=== PATIENT | male | born 1970 | race Caucasian/White ===

== ENCOUNTER → 2021-03-22 09:22 | Outpatient (BNVA) | payer BC, SELFPAY | PROVIDERS: PCP Internal Medicine; Visit Provider Physician Assistant ==

== ENCOUNTER 2021-04-25 07:22 | Outpatient (REF) | payer BC, SELFPAY ==
[2021-04-25 07:53] LABS: MANUAL DIFF FLAG NO
[2021-04-25 07:58] LABS: Basophils Absolute Auto 0.1 X10*3/uL (0.0-0.2); Basophils Percent Auto 0.7 % (0-2); Eosinophils Absolute Auto 0.7 X10*3/uL (0.0-0.4); Eosinophils Percent Auto 9.6 % (0-4); Hematocrit 43.8 % (42-52); Hemoglobin 15.2 g/dl (14.0-18.0); Imm Gran Abs Auto 0.03 X10*3/uL (0.00-0.03); Imm Gran Pct Auto 0.4 % (0.0-0.4); Lymphocytes Absolute Auto 2.1 X10*3/uL (1.2-4.9); Mean Corpuscular HGB Conc 34.7 g/dl (31.0-36.0); Mean Corpuscular Volume 83.6 fL (80-98); Mean Platelet Volume 11.1 fL (9.4-12.4); Monocytes Absolute Auto 0.7 X10*3/uL (0.1-1.2); Monocytes Percent Auto 9.4 % (2-11); Neutrophils Percent Auto 52.9 % (45-73); Platelet Count 195 X10*3/uL (160-400); Red Blood Count 5.24 X10*6/uL (4.60-5.80); Red Cell Distribution Width 12.8 % (11.0-16.0); White Blood Count 7.6 X10*3/uL (4.8-10.8)
[2021-04-25 08:10] LABS: Estimated Average Glucose 114 mg/dL; Hemoglobin A1C 149.4362 umol/L; Hemoglobin A1c % 5.6 %
[2021-04-25 08:19] LABS: Alanine Aminotransferase 35 U/L (0-40); Alkaline Phosphatase 85 U/L (39-117); Anion Gap 13 (12-20); Aspartate Amino Transferase 35 U/L (5-37); Bilirubin Total 2.1 mg/dL (0.0-1.0); Blood Urea Nitrogen 14 mg/dL (9-16); Carbon Dioxide 24 mmol/L (22-29); Chloride 106 mmol/L (96-108); Cholesterol 152 mg/dL; Estimated Glomerular Filt Rate 53; Glucose Random 105 mg/dL (60-115); HDL Cholesterol 35 mg/dL; LDL Cholesterol Calculated 85 mg/dl; Potassium 4.2 mmol/L (3.3-5.1); Sodium 139 mmol/L (135-145); Total Protein 7.4 g/dL (6.5-8.0); Triglycerides 160 mg/dL
[2021-04-25 08:40] LABS: Free T4 (Free Thyroxine) 1.04 ng/dL (0.71-1.85); Prostate Specific Antigen Scr 3.86 ng/mL (<0.05-4.0); Thyroid Stimulating Hormone 1.19 uIU/mL (0.32-4.0)
[2021-04-25 11:10] LABS: Folate 14.3 ng/mL (> or = 4.0); Vitamin B12 435 pg/mL (200-900)
== END 2021-04-25 07:23 | disposition home or self-care (01) ==
LOC: HO.LAB 07:22
PROVIDERS: PCP Internal Medicine; Visit Provider Internal Medicine
DX: E78.00 Pure hypercholesterolemia, unspecified (principal); E80.6 Other disorders of bilirubin metabolism; I10 Essential (primary) hypertension; R73.01 Impaired fasting glucose
CPT/HCPCS: 36415; 80053; 80061; 82607; 82746; 83036; 84153; 84439; 84443; 85025

== ENCOUNTER 2021-05-15 13:40 | Outpatient (REF) | payer BC, SELFPAY ==
[2021-05-15 14:57] LABS: Anion Gap 17 (12-20); Bilirubin Direct 0.5 mg/dL (0.0-0.5); Blood Urea Nitrogen 17 mg/dL (9-16); Carbon Dioxide 26 mmol/L (22-29); Chloride 102 mmol/L (96-108); Estimated Glomerular Filt Rate > 60; Lactate Dehydrogenase 176 U/L (118-273); Potassium 4.4 mmol/L (3.3-5.1); Sodium 141 mmol/L (135-145)
[2021-05-15 15:10] LABS: Calcium 10.2 mg/dL (8.4-10.2); Glucose Random 94 mg/dL (60-115)
[2021-05-16 14:07] LABS: Haptoglobin 196 mg/dL (43-212)
== END 2021-05-15 13:41 | disposition home or self-care (01) ==
LOC: HO.LAB 13:40
PROVIDERS: PCP Internal Medicine; Visit Provider Internal Medicine
DX: E80.6 Other disorders of bilirubin metabolism (principal)
CPT/HCPCS: 36415; 80048; 82248; 83010; 83615

== ENCOUNTER 2021-11-11 19:05 | Emergency (ER) | payer OTHER, SELFPAY ==
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
[2021-11-11 19:15] VITALS: BP 152/91; BP 154/78; PULSE 73; RESP 16; O2SAT 97; BMI 32.5
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
[2021-11-11] MEDS: Ibuprofen 600 MG TABLET PO (21:55)
== END 2021-11-11 22:00 | disposition home or self-care (01) ==
PROVIDERS: Emergency Provider Internal Medicine; PCP Internal Medicine
DX: S13.4XXA Sprain of ligaments of cervical spine, initial encounter (principal); S29.012A Strain of muscle and tendon of back wall of thorax, initial encounter; M25.512 Pain in left shoulder; M25.511 Pain in right shoulder; V43.52XA Car driver injured in collision with other type car in traffic accident, initial encounter; Y93.9 Activity, unspecified; Y92.415 Exit ramp or entrance ramp of street or highway as the place of occurrence of the external cause; Y99.9 Unspecified external cause status; Z79.899 Other long term (current) drug therapy; Z87.891 Personal history of nicotine dependence
CPT/HCPCS: 70450; 71046; 72125; 73030; 99284

== ENCOUNTER → 2021-12-10 10:38 | Outpatient (BNVA) | payer OTHER, BC, SELFPAY | PROVIDERS: PCP Internal Medicine; Visit Provider Physician Assistant | DX: M25.512 Pain in left shoulder (principal); S14 Injury of nerves and spinal cord at neck level; X58.XXXD Exposure to other specified factors, subsequent encounter | CPT/HCPCS: 99202 ==

== ENCOUNTER 2022-02-26 14:00 | Outpatient (RCR) | payer OTHER, BC, SELFPAY | END 2022-04-04 15:15 | disposition home or self-care (01) | LOC: HO.PTWFD 14:00 | PROVIDERS: PCP Internal Medicine; Visit Provider Nurse Practitioner Family | DX: M25.512 Pain in left shoulder (principal); M54.9 Dorsalgia, unspecified | CPT/HCPCS: 97012; 97033; 97035; 97110; 97140; 97162; 97535 ==

== ENCOUNTER 2022-11-15 07:38 | Outpatient (REF) | payer BC, SELFPAY ==
[2022-11-15 07:56] LABS: MANUAL DIFF FLAG NO
[2022-11-15 08:13] LABS: Basophils Percent Auto 0.5 % (0-2); Eosinophils Absolute Auto 0.6 X10*3/uL (0.0-0.4); Eosinophils Percent Auto 7.6 % (0-4); Hematocrit 43.9 % (42.0-52.0); Hemoglobin 15.2 g/dl (14.0-18.0); Imm Gran Abs Auto 0.03 X10*3/uL (0.00-0.03); Imm Gran Pct Auto 0.4 % (0.0-0.4); Lymphocytes Absolute Auto 1.9 X10*3/uL (1.2-4.9); Lymphocytes Percent Auto 23.8 % (20-40); Mean Corpuscular HGB Conc 34.6 g/dl (31.0-36.0); Mean Corpuscular Volume 86.6 fL (80.0-98.0); Mean Platelet Volume 11.8 fL (9.4-12.4); Monocytes Absolute Auto 0.6 X10*3/uL (0.1-1.2); Monocytes Percent Auto 7.7 % (2-11); Neutrophils Absolute Auto 4.9 x10*3/uL (2.0-8.3); Platelet Count 214 X10*3/uL (160-400); Red Blood Count 5.07 X10*6/uL (4.60-5.80); Red Cell Distribution Width 13.1 % (11.0-16.0); White Blood Count 8.1 X10*3/uL (4.8-10.8)
[2022-11-15 08:44] LABS: Alanine Aminotransferase 27 U/L (0-40); Albumin Level 4.9 g/dL (3.5-5.0); Alkaline Phosphatase 68 U/L (39-117); Anion Gap 14 (12-20); Aspartate Amino Transferase 21 U/L (5-37); Bilirubin Total 1.8 mg/dL (0.0-1.0); Blood Urea Nitrogen 16 mg/dL (9-16); Calcium 9.2 mg/dL (8.4-10.2); Carbon Dioxide 26 mmol/L (22-29); Chloride 107 mmol/L (96-108); Cholesterol 171 mg/dL; Estimated Glomerular Filt Rate > 60; Glucose Random 100 mg/dL (60-115); HDL Cholesterol 35 mg/dL; LDL Cholesterol Calculated 107 mg/dl; Potassium 4.6 mmol/L (3.3-5.1); Sodium 142 mmol/L (135-145); Total Protein 7.1 g/dL (6.5-8.0); Triglycerides 148 mg/dL
[2022-11-15 09:32] LABS: Folate 10.3 ng/mL (> or = 4.0); Prostate Specific Antigen Scr 6.66 ng/mL (<0.05-4.0); Vitamin B12 337 pg/mL (200-900)
== END 2022-11-15 07:39 | disposition home or self-care (01) ==
LOC: HO.LAB 07:38
PROVIDERS: PCP Internal Medicine; Visit Provider Internal Medicine
DX: E78.00 Pure hypercholesterolemia, unspecified (principal); R97.20 Elevated prostate specific antigen [PSA]; Z12.5 Encounter for screening for malignant neoplasm of prostate
CPT/HCPCS: 36415; 80053; 80061; 82607; 82746; 84153; 84439; 84443; 85025

== ENCOUNTER 2022-12-03 07:57 | Outpatient (REF) | payer BC, SELFPAY ==
[2022-12-03 09:05] LABS: PSA,Total (Free>4and<10) 5.81 ng/mL (0.00-4.00)
[2022-12-05 11:54] LABS: Free Prostate Spec Ag 0.9 ng/mL; Percent Free Prostate Spec Ag 15 % (calc) (>25)
== END 2022-12-03 07:58 | disposition home or self-care (01) ==
LOC: HO.LAB 07:57
PROVIDERS: PCP Internal Medicine; Visit Provider Internal Medicine
DX: R97.20 Elevated prostate specific antigen [PSA] (principal); Z12.5 Encounter for screening for malignant neoplasm of prostate
CPT/HCPCS: 36415; 84153; 84154

== ENCOUNTER → 2023-01-09 15:05 | Outpatient (BNVA) | payer BC, SELFPAY | PROVIDERS: PCP Internal Medicine; Visit Provider Nurse Practitioner Family | DX: Z13.89 Encounter for screening for other disorder (principal) ==

== ENCOUNTER 2023-01-13 08:31 | Outpatient (REF) | payer BC, SELFPAY ==
[2023-01-13 10:13] LABS: Prostate Specific Antigen 5.73 ng/mL (<0.05-4.0)
== END 2023-01-13 08:32 | disposition home or self-care (01) ==
LOC: HO.LAB 08:31
PROVIDERS: PCP Internal Medicine; Visit Provider Nurse Practitioner Family
DX: R97.20 Elevated prostate specific antigen [PSA] (principal); Z12.5 Encounter for screening for malignant neoplasm of prostate
CPT/HCPCS: 36415; 84153

== ENCOUNTER → 2023-01-20 14:30 | Outpatient (BNVA) | payer BC, SELFPAY | PROVIDERS: PCP Internal Medicine; Visit Provider Nurse Practitioner Family ==

== ENCOUNTER 2023-03-04 07:42 | Outpatient (REF) | payer BC, SELFPAY ==
[2023-03-04 07:32] VITALS: BP 132/99; PULSE 73; RESP 18; TEMP 36.9; O2SAT 96; BMI 31.7
--- NOTE | 2023-03-04 08:36 | W.PM.OPN ---
Operative Note Operative Note Date of Service: 03/04/23 Narrative: Preoperative diagnosis: Elevated PSA Postoperative diagnosis: Elevated PSA Procedure: 1. transrectal ultrasound measurement of prostate 2. transrectal ultrasound-guided pudendal nerve block 3. transrectal ultrasound-guided prostate biopsy 12 core Surgeon: Dr. Mikal Parson Anesthetic: Local Indications for procedure: Elevated PSA Prostate Cancer Procedure: After informed consent was verified, the patient was brought into the procedure area and lay left-hand side down on the table. Patient identity confirmed. Perioperative antibiotics confirmed. Safety pause time out performed. LEN performed to dilate rectal sphincter Iodine 10cc with Gel was placed per rectum Ultrasound probe was placed per rectum The prostate was measured in 3 dimensions Total volume equals 45 gm small yst - left - cystic structures were noted No calcifications were noted at the surgical margin The prostate was otherwise homogeneous in nature An ultrasound-guided pudendal nerve block was performed using 10 cc of 1% lidocaine. 8 cc was placed at the base and 2 cc of the apex. A 12 core biopsy was performed with 6 cores each side. Two cores were taken at the apex, mid and base. Cores were spaced between lateral and medial. He tolerated the procedure well. Was able to ambulate to bathroom after 5 minutes. Printed instructions regarding antibiotic use and common side effects such as low-grade temperature, potential infection and bleeding were given Pathology: 12 core prostate biopsy.
== END 2023-03-04 07:43 | disposition home or self-care (01) ==
LOC: HO.MS 07:42
PROVIDERS: PCP Internal Medicine; Visit Provider Urology
PROC: (CPT 55700; principal; 2023-03-04 08:00)
DX: C61 Malignant neoplasm of prostate (principal); N42.32 Atypical small acinar proliferation of prostate; R97.20 Elevated prostate specific antigen [PSA]
CPT/HCPCS: 55700; 76942; 88305; 88344

== ENCOUNTER → 2023-03-12 11:33 | Outpatient (BNVA) | payer BC, SELFPAY | PROVIDERS: Visit Provider Urology ==

== ENCOUNTER 2023-03-26 09:38 | Outpatient (AMB) | payer BC, SELFPAY ==
--- NOTE | 2023-03-26 10:05 | A.OFFVIS_ITS ---
Intake Intake Visit Reasons: BX results Allergies lisinopril [LISINOPRIL] Allergy (Unknown, Verified 01/20/23 14:38) cough HPI HPI Comments History of Present Illness Details Won is a pleasant male. He is a patient of Dr. Kent. 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 Telemedicine Evaluation 15 min Consultation [employer] Wade Video attempted Discussion regarding prostate cancer diagnosis Plan for staging and genetics Treatment decisions will be based on completed information Prostate cancer - grade group [address] Parson for rising PSA 03/07 PSA at diagnosis 5.7, free% 15 No family history TRUS - 45gm, T1c [place] score: 3+3=6 - Grade group: 1 Tumor quantitation: ? Number cores positive: 4 Total number of cores: 12 - LBL, LML, RML, KARLA Periprostatic fat inv.: Not identified Seminal vesicle inv.: Not identified Perineural inv.: Not identified LVI: Not identified PFSH Medical History Alcohol abuse Anxiety and depression Fatty liver GERD (gastroesophageal reflux disease) Hypercholesterolemia Hypertension Impaired fasting glucose Obesity (BMI 30-39.9) Obstructive sleep apnea Vitamin D deficiency Surgical History H/O nasal septoplasty Family History Father Alcoholism Mother Hypertension Hypercholesteremia Brother Hypercholesteremia Gout Maternal Grandfather Throat cancer Maternal Grandmother Hypertension Maternal Uncle Throat cancer Colon cancer Social History Household Members Other:: - 1 son Housing: House Alcohol intake: former Patient Tobacco Use Status: Former Tobacco user Tobacco use type: Cigar Years Smoked: quit 2020 e-Cigarette/Vaping Use: Never Used Second Hand Smoke Exposure: No service: Yes Current occupational status: employed Current occupation: [employer] Cognitive needs: No Hearing needs: No Vision needs: Yes Review of Systems Const All systems reviewed & are unremarkable except as noted in HPI and below Denies chills and Denies fever(s) Card Reports no additional complaints and Denies syncope Resp Denies cough GI Denies abdominal pain and Denies heartburn Reports as per HPI and Denies change in libido Musc Reports no additional complaints Neuro Denies syncope Psych Denies change in libido Endo Denies change in libido Physical Exam Telemedicine evaluation Appropriate responses Regular breathing rate and rhythm HEENT Head: Yes normal to inspection Ears: hearing grossly normal bilaterally Eyes General: appearance normal, both eyes and all related structures Neck Neck: Yes normal visual inspection Chest Chest palpation & inspection: normal inspection of the chest Resp Effort & Inspection: normal respiratory effort and able to speak in complete sentences Assessment & Plan Assessment & Plan (1) Prostatic adenocarcinoma: Comment: February 2023 Code(s): C61 - Malignant neoplasm of prostate Plan Prostate MRI, prolaris Patient Instructions: Imaging studies, laboratory and physical exam results were discussed and reviewed in detail. No major barriers to patient understanding were identified. An opportunity to ask questions regarding the treatment plan was provided. All questions were answered. The patient expressed understanding and agreement with the above treatment plan. The patient is aware they should contact our office by phone for worsening of their current condition or the appearance of new urologic symptoms. Compliance is encouraged with any medications and followup testing that is ordered. It is a privilege to participate in the urologic care of your patient. If you have any questions or concerns regarding treatment for the above conditions, or other urologic issues, please do not hesitate to contact me. The office telephone contact is [phone]. This note is constructed using voice recognition software. 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 Yours sincerely, Dr Mikal Parson MD, [facility] - Urology Providers of Expert, Compassionate Care for the Genitourinary System Telehealth Telehealth Location of provider rendering services: practice address Location of patient: address on file Patient Identification confirmed using: Name, : Yes Telehealth method: video Patient verbally consented to treatment: Yes Patient verbally consented to billing insurance company: Yes Patient informed of any privacy concerns related to visit: Yes Coding Level of Care Code Tele Est Pt Level 4 (14019) Diagnoses Prostatic adenocarcinoma C61
== END 2023-03-26 11:45 | disposition home or self-care (01) ==
LOC: HO.HUSH 09:38
PROVIDERS: PCP Internal Medicine; Visit Provider Urology
DX: C61 Malignant neoplasm of prostate (principal)
CPT/HCPCS: 99214

== ENCOUNTER → 2023-03-26 09:38 | Outpatient (BNVA) | payer BC, SELFPAY | PROVIDERS: PCP Internal Medicine; Visit Provider Urology ==

== ENCOUNTER 2023-05-06 13:59 | Outpatient (AMB) | payer BC, SELFPAY ==
--- NOTE | 2023-05-06 14:05 | A.OFFVIS_ITS ---
Intake Intake Visit Reasons: 5w/MRI ([place])SET Intake Note: Patient is present for Follow Up MRI Urology Med: None Antibiotic Allergy: None Blood Thinner: None [facility] Allergies lisinopril [LISINOPRIL] Allergy (Unknown, Verified 05/06/23 14:08) cough HPI HPI Comments History of Present Illness Details Won is a pleasant male. He is a patient of Dr. Kent. 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 Staging and genetics completed Genetics indicate active surveillance group Imaging results shows a 6 mm PI-RADS 4 lesion At this stage will start finasteride 3 times a week and proceed with surveillanc e Treatment options including robotic prostatectomy discussed Prostate cancer - grade group [address] Parson for rising PSA 03/07 PSA at diagnosis 5.7, free% 15 No family history TRUS - 45gm, T1c [place] score: 3+3=6 - Grade group: 1 Number cores positive: 4 Total number of cores: 12 - LBL, LML, RML, KARLA Periprostatic fat inv.: Not identified Seminal vesicle inv.: Not identified Perineural inv.: Not identified LVI:Not identified Staging - 05/07 Genetics active surveillance - 05/07 MRI - 10mm lesion PiRADS 3, 6 mm PI-RADS 4 PFSH Medical History Alcohol abuse Anxiety and depression Fatty liver GERD (gastroesophageal reflux disease) Hypercholesterolemia Hypertension Impaired fasting glucose Obesity (BMI 30-39.9) Obstructive sleep apnea Vitamin D deficiency Surgical History H/O nasal septoplasty Family History Father Alcoholism Mother Hypertension Hypercholesteremia Brother Hypercholesteremia Gout Maternal Grandfather Throat cancer Maternal Grandmother Hypertension Maternal Uncle Throat cancer Colon cancer Social History Household Members Other:: - 1 son Housing: House Alcohol intake: former Patient Tobacco Use Status: Former Tobacco user Tobacco use type: Cigar Years Smoked: quit 2020 e-Cigarette/Vaping Use: Never Used Second Hand Smoke Exposure: No service: Yes Current occupational status: employed Current occupation: [employer] Cognitive needs: No Hearing needs: No Vision needs: Yes Review of Systems Const Denies chills and Denies fever(s) Card Reports no additional complaints and Denies syncope Resp Denies cough GI Denies abdominal pain and Denies heartburn Reports as per HPI and Denies change in libido Neuro Denies syncope Psych Denies change in libido Endo Denies change in libido Physical Exam Const General: cooperative, healthy appearing, comfortable and no acute distress Orientation/consciousness: patient oriented x3 HEENT Face and sinus: Yes normal facial exam Mouth: moist mucous membranes Neck Neck: Yes normal visual inspection, Yes full ROM and Yes trachea midline Chest Chest palpation & inspection: normal inspection of the chest Resp Effort & Inspection: normal respiratory effort, able to speak in complete sentences and no respiratory distress GI Inspection: Yes normal to inspection Back/Spine/Pelvis Cervical Spine: normal cervical lordosis Thoracic/Lumbar Spine: thoracic and lumbar spine normal to inspection Skin General skin exam: no rashes or lesions noted Neuro General: patient oriented x3, gait normal, tone normal and moves all extremities Extrem General: Yes normal to inspection and Yes capillary refill normal Assessment & Plan Assessment & Plan (1) Prostatic adenocarcinoma: Comment: 03/07 - Grade Group 1 Prolaris Active Surveillance Code(s): C61 - Malignant neoplasm of prostate Plan PSA 4 months Orders: Orders Prostate Specific Antigen 4 Months C61 - Malignant neoplasm of prostate Medications: New finasteride 5 mg PO DAILY 90 tabs 1RF 90 days C61 - Malignant neoplasm of prostate, N13.8 - Other obstructive and reflux uropathy, N40.1 - Benign prostatic hyperplasia with lower urinary tract symptoms, R33.9 - Retention of urine, unspecified Patient Instructions: Imaging studies, laboratory and physical exam results were discussed and reviewed in detail. No major barriers to patient understanding were identified. An opportunity to ask questions regarding the treatment plan was provided. All questions were answered. The patient expressed understanding and agreement with the above treatment plan. The patient is aware they should contact our office by phone for worsening of their current condition or the appearance of new urologic symptoms. Compliance is encouraged with any medications and followup testing that is ordered. It is a privilege to participate in the urologic care of your patient. If you have any questions or concerns regarding treatment for the above conditions, or other urologic issues, please do not hesitate to contact me. The office telephone contact is [phone]. This note is constructed using voice recognition software. While every effort has been made to ensure accuracy shoe trimmer errors may have been included. Yours sincerely, Dr Mikal Parson MD, [facility] - Urology Providers of Expert, Compassionate Care for the Genitourinary System Coding Level of Care Code Est Pt Level 4 (40960) Diagnoses Prostatic adenocarcinoma C61
== END 2023-05-06 15:29 | disposition home or self-care (01) ==
PROVIDERS: PCP Internal Medicine; Visit Provider Urology
DX: C61 Malignant neoplasm of prostate (principal)
CPT/HCPCS: 99214

== ENCOUNTER → 2023-05-06 13:59 | Outpatient (BNVA) | payer BC, SELFPAY | PROVIDERS: PCP Internal Medicine; Visit Provider Urology ==

== ENCOUNTER 2023-05-12 14:09 | Outpatient (AMB) | payer BC, SELFPAY ==
[2023-05-12 14:20] VITALS: BP 112/68; PULSE 70; O2SAT 98; BMI 32.6
--- NOTE | 2023-05-12 14:20 | A.OFFPC_ITS ---
Vital Signs 05/12/23 14:20 Height 5 ft 9 in Weight 100.244 kg BMI 32.6 BP 112/68 Blood Pressure Location Lt brachial Position Sitting Pulse 70 Pulse Source Pulse Oximeter Pulse Oximetry (%) 98 Oxygen Delivery Method Room Air Intake Visit Reasons: PE Allergies lisinopril [LISINOPRIL] Allergy (Unknown, Verified 05/12/23 14:20) cough Medication List - Last Reconciled 05/12/23 by Jamaica Kent MD amlodipine 10 mg PO DAILY atorvastatin 20 mg PO DAILY 90 days finasteride 5 mg PO DAILY 90 days losartan 50 mg PO DAILY sertraline 25 mg PO DAILY Tobacco use date assessed: 11/21/22 Dental Screening Dental Screen Date: 05/12/23 Did you have a dental visit in the last 12 months?: Yes Did you have a dental problem in the last 6 months where you did not have access to dental care?: No Was dental information given to patient?: Patient has dentist HPI PE HPI Details 52-year-old obese male with hypertension hypercholesterolemia GERD [place] anxiety disorder cervical spinal stenosis followed up by [facility]. PSA elevation and recent diagnosis of prostate cancer under urology February 2023 last seen in November 2022. Patient is here for physical exam. Patient was referred for the Cologuard test. Patient has also seen the [facility] for spondylosis cervical region had cervical facet injections. coughing associated after eating PFSH Medical History Alcohol abuse Anxiety and depression Fatty liver GERD (gastroesophageal reflux disease) Hypercholesterolemia Hypertension Impaired fasting glucose Obesity (BMI 30-39.9) Obstructive sleep apnea Vitamin D deficiency Surgical History H/O nasal septoplasty Family History (Updated 05/12/23 @ 15:37 by Jamaica Kent MD) Father Alcoholism Breast cancer Mother Hypertension Hypercholesteremia Brother Hypercholesteremia Gout Maternal Grandfather Throat cancer Maternal Grandmother Hypertension Maternal Uncle Throat cancer Colon cancer Social History Household Members Other:: - 1 son Housing: House Alcohol intake: former Patient Tobacco Use Status: Former Tobacco user Tobacco use type: Cigar Years Smoked: quit 2020 e-Cigarette/Vaping Use: Never Used Second Hand Smoke Exposure: No service: Yes Current occupational status: employed Current occupation: [employer] Cognitive needs: No Hearing needs: No Vision needs: Yes Questionnaire PHQ-9 Over the last 2 weeks, how often have you been bothered by any of the following problems? 1. Little interest or pleasure in doing things: not at all 2. Feeling down, depressed, or hopeless: not at all 3. Trouble falling or staying asleep, or sleeping too much: not at all 4. Feeling tired or having little energy: not at all 5. Poor appetite or overeating: not at all 6. Feeling bad about yourself - or that you are a failure or have let yourself or your family down: not at all 7. Trouble concentrating on things, such as reading the newspaper or watching television: not at all 8. Moving or speaking so slowly that other people could have noticed. Or the opposite - being so fidgety or restless that you have been moving around a lot more than usual: not at all 9. Thoughts that you would be better off or of hurting yourself in some way: not at all Total score: 0 Depression Screening Interpretation: Negative Source: Developed by Drs. Jass Arias, Leobardo Aranda and colleagues, with an educational jody from [employer]. Thrive Questionnaire Date Thrive assessed: 11/21/22 AUDIT C Alcohol Use Questionnaire (AUDIT-C) 1. How often do you have a drink containing alcohol?: Never 3. How often do you have six or more drinks on one occasion?: Never Total Score: 0 Score Reviewed/Action Taken: No DEYSI-7 AMB Questionnaire DEYSI-7 Date DEYSI - 7 assessed: 11/21/22 Source: Developed by Drs. Jass Arias, Leobardo Aranda and colleagues, with an educational jody from [employer]. Review of Systems Const Denies poor appetite and Denies weakness Eyes Denies no additional complaints ENT Reports Normal hearing present, Denies dizziness, Denies nasal congestion, Denies tinnitus and Denies sore throat Card Denies chest pain, Denies syncope, Denies rapid heart rate and Denies dyspnea Resp Denies cough and Denies dyspnea GI Denies change in stool character, Reports constipation, Denies diarrhea, Denies nausea and Denies vomiting Denies dysuria and Denies urinary frequency Neuro Reports Normal hearing present, Denies confusion, Denies dizziness, Denies syncope and Denies weakness Psych Denies confusion Physical exam (Primary Care) Vital Signs: Last Vital Signs Pulse 70 05/12/23 14:20 BP 112/68 05/12/23 14:20 Pulse Ox 98 05/12/23 14:20 Oxygen Delivery Method Room Air 05/12/23 14:20 BMI result Body Mass Index 32.6 Tobacco/Smoking Status: Tobacco use Status Tobacco use date assessed 11/21/22 05/12/23 14:21 Patient Tobacco Use Status Former Tobacco user 05/12/23 14:21 Tobacco use type Cigar 05/12/23 14:21 e-Cigarette/Vaping Use Never Used 05/12/23 14:21 PHQ-9: PHQ-9 Score PHQ-9: Total score 0 05/12/23 15:30 Depression Screening Interpretation: Negative Thrive Assessment: Date of Thrive Assessment Date Thrive assessed 11/21/22 05/12/23 14:21 Const General: No confusion Orientation/consciousness: No confusion HENMT Head: Yes normocephalic Ears: external ears normal and TM's normal bilaterally Face and sinus: Yes normal facial exam Mouth: moist mucous membranes Throat: Yes tonsils normal Eyes Conjunctivae: conjunctivae normal Pupils: Equal, round and reactive pupils present and Pupil accommodation reflex normal Direct Ophthalmoscopy: normal light reflex Neck Neck: No lymphadenopathy Thyroid: Thyroid normal Chest Chest palpation & inspection: normal inspection of the chest Resp Effort & Inspection: normal respiratory effort and no audible wheezes Auscultation: clear to auscultation bilaterally, no crackles, no wheezes and lung sounds not diminished Cardio Rate: regular rate Rhythm: regular rhythm Peripheral pulses: radial pulses present and dorsalis pedis present GI Palpation (GI): no masses Auscultation: normal bowel sounds and normoactive bowel sounds Rectal Exam - Male: Yes deferred Skin General skin exam: no rashes or lesions noted Rashes: no rashes Neuro General: No confusion Cranial nerves: Yes Equal, round and reactive pupils present and Yes Normal hearing present Cognition (Neuro): normal cognition Gait exam (Neuro): Normal gait present Motor exam (neuro): 5/5 motor strength present throughout Deep tendon reflexes (DTR's): Right brachioradialis reflex intensity grade: 2+, Left brachioradialis reflex intensity grade: 2+, Right patellar reflex intensity grade: 2+ and Left patellar reflex intensity grade: 2+ Extrem General: No edema Immunizations pneumoc 20-jon conj-dip cr(PF) Performing Provider: Jamaica Kent MD Administered by: Annamaria Lin CMA on 05/12/23 15:54 Dose Route Admin Location Lot Number Expiration Date NDC Video Producer 0.5 mL IM Left Deltoid [id number] 05/16/24 [employer] VIS Given Date VIS Provided VIS Publication Date 05/12/23 Single Vaccine 21 Eligibility Eligibility Date Funding Source Not [facility] Eligible 05/12/23 Private Assessment and Plan Assessment & Plan (1) Annual physical exam: Code(s): Z00.00 - Encounter for general adult medical examination without abnormal findings (2) Prostatic adenocarcinoma: Comment: 03/07 - Grade Group 1 Prolaris Active Surveillance Code(s): C61 - Malignant neoplasm of prostate Plan: Patient is being followed up by Urology (3) Colon cancer screening: Comment: colonoscopy Code(s): Z12.11 - Encounter for screening for malignant neoplasm of colon Plan: Reminded about Cologuard test (4) Impaired fasting glucose: Code(s): R73.01 - Impaired fasting glucose Plan: Decrease the amount of carbohydrate intake, pasta, bread, rice and potatoes are all sugar and that is aside from all the sweet stuff, remember that fruits are good but they are Sweet also. (5) GERD (gastroesophageal reflux disease): Code(s): K21.9 - Gastro-esophageal reflux disease without esophagitis Qualifiers: Esophagitis presence: without esophagitis Qualified Code(s): K21.9 - Gastro-esophageal reflux disease without esophagitis Plan: Avoid the foods that causes that usually spicy foods, tomato products, juices, coffee, soda and foods that your sensitive to. After eating do not lie down, allow 3-4 hours before in lie down. And keep the head of bed above 30 degrees to avoid the acid from going up. (6) Obesity (BMI 30-39.9): Code(s): E66.9 - Obesity, unspecified Plan: Diet and exercise (7) Obstructive sleep apnea: Comment: Has CPAP not using QD (01/2021) Code(s): G47.33 - Obstructive sleep apnea (adult) (pediatric) Plan: Discussed about the importance of CPAP treatment for sleep apnea (8) Hypercholesterolemia: Code(s): E78.00 - Pure hypercholesterolemia, unspecified Plan: Avoid fried foods, chicken skin, eggs, butter margarine, pastries and meat. Be it pork or beef they have a lot of cholesterol LDL goal of less than 130 and triglyceride of less than 150 patient is on atorvastatin 20 mg once a day (9) Hypertension: Code(s): I10 - Essential (primary) hypertension Qualifiers: Hypertension type: essential hypertension Qualified Code(s): I10 - Essential (primary) hypertension Plan: Continue with blood pressure medication. Decrease salt intake and exercise patient on losartan 50 mg once a day and amlodipine (10) Generalized anxiety disorder: Comment: decline counselling 10/2021 Code(s): F41.1 - Generalized anxiety disorder Plan: Continue with sertraline 25 mg once a day (11) Dysphagia: Code(s): R13.10 - Dysphagia, unspecified (12) Tinnitus: Code(s): H93.19 - Tinnitus, unspecified ear Orders: Orders FL barium swallow Today R13.10 - Dysphagia, unspecified Pneumococcal 20 Immunization Today Z23 - Encounter for immunization Coding Level of Care Code Est Pt Prev Care 40-64y(34465) Diagnoses Annual physical exam Z00.00 Prostatic adenocarcinoma C61 Colon cancer screening Z12.11 Impaired fasting glucose R73.01 GERD (gastroesophageal reflux disease) K21.9 Esophagitis presence: without esophagitis Obesity (BMI 30-39.9) E66.9 Obstructive sleep apnea G47.33 Hypercholesterolemia E78.00 Hypertension I10 Hypertension type: essential hypertension Generalized anxiety disorder F41.1 Dysphagia R13.10 Tinnitus H93.19
== END 2023-05-12 16:03 | disposition home or self-care (01) ==
PROVIDERS: PCP Internal Medicine; Visit Provider Internal Medicine
DX: Z00.00 Encounter for general adult medical examination without abnormal findings (principal); C61 Malignant neoplasm of prostate; K21.9 Gastro-esophageal reflux disease without esophagitis; I10 Essential (primary) hypertension; F41.1 Generalized anxiety disorder; R73.01 Impaired fasting glucose; R13.10 Dysphagia, unspecified; H93.19 Tinnitus, unspecified ear
CPT/HCPCS: 90471; 90677; 99396

== ENCOUNTER 2023-07-21 08:01 | Outpatient (REF) | payer BC, SELFPAY ==
--- NOTE | ~2023-07-21 | FL_ITS ---
EXAMINATION: FLUOROSCOPY BARIUM SWALLOW ESOPHAGRAM CLINICAL INFORMATION: Dysphagia. COMPARISON: None TECHNIQUE: Fluoroscopic air contrast esophagram examination was performed utilizing standard techniques with thin and thick barium and effervescent granules. Numerous spot images were obtained. Several fluoroscopic cine image hold runs were also obtained. FINDINGS: Lateral cine images of the oropharynx and hypopharynx demonstrate normal swallow mechanism with normal epiglottic inversion and soft palate elevation. No tracheal penetration, glottic or subglottic aspiration identified. No nasopharyngeal reflux present. There is pooling of barium in the piriform sinuses that clears with subsequent swallowing. Hypopharyngeal structures appear normal without evidence of mass or diverticulum. There was no significant cricopharyngeal achalasia. Dual and single contrast images of the esophagus demonstrate normal caliber, and contour. The mucosa of the distal esophagus is irregular with multiple tiny areas of pooling concerning for tiny ulcerations. Overall appearance is just suggestive of focal erosive esophagitis. There are no strictures or masses. Primary esophageal peristalsis was normal. There are nonpropulsive tertiary contractions of the distal esophagus, which represents mild dysmotility. A small hiatal hernia is identified. No significant gastroesophageal reflux was seen during the course of the examination and on reflux views. FLUOROSCOPY TIME: 2 minutes 36 seconds Number of Spot Images: 5 Number of Cine: 7 DOSE AREA PRODUCT: 1944 uGy-m2 (microgray-meter squared) FL/FL barium swallow IMPRESSION: 1. Focal irregular mucosa/ulcerations of the distal esophagus suggestive of focal erosive esophagitis, possibly related to reflux. Recommend gastrointestinal consultation for consideration of an endoscopic evaluation. 2. Nonpropulsive tertiary contractions of distal esophagus present with mild esophageal dysmotility. 3. Small type I hiatal hernia. Grossly no gastroesophageal reflux is seen This procedure was performed by Hardik Quan PA-C, and supervised by Dr. Temple
== END 2023-07-21 08:02 | disposition home or self-care (01) ==
LOC: HO.XRAY 08:01
PROVIDERS: PCP Internal Medicine; Visit Provider Internal Medicine
DX: R13.10 Dysphagia, unspecified (principal)
CPT/HCPCS: 74220

== ENCOUNTER → 2023-07-21 08:01 | Outpatient (BNV) | payer BC, SELFPAY | PROVIDERS: PCP Internal Medicine; Visit Provider Radiology Diagnostic Radiology | DX: R13.10 Dysphagia, unspecified (principal) | CPT/HCPCS: 74221 ==

== ENCOUNTER 2023-08-26 14:20 | Outpatient (AMB) | payer BC, SELFPAY ==
--- NOTE | 2023-08-26 14:26 | A.OFFVIS_ITS ---
Intake Vital Signs 08/26/23 14:35 Height 5 ft 9 in Weight 215 lb BMI 31.7 BP 138/72 Blood Pressure Location Lt brachial Position Sitting Pulse 63 Intake Visit Reasons: Ulcer of Esophagus with out bleeding Intake Note: Patient follow up for Ulcer of Esophagus with out bleeding. Patient cc: Manager Retention Required: No Accompanied by: Self / Same As Patient Allergies lisinopril [LISINOPRIL] Allergy (Unknown, Verified 08/26/23 14:34) cough Medication List - Last Reconciled 08/26/23 by Consuelo Miller PA-C amlodipine 10 mg PO DAILY atorvastatin 20 mg PO DAILY 90 days finasteride 5 mg PO DAILY 90 days losartan 50 mg PO DAILY omeprazole 20 mg PO DAILY 12 weeks sertraline 25 mg PO DAILY HPI HPI Comments History of Present Illness Details A 52 y/o male - cough, phlem and nasal congestion every time he eats- ongoing for years Appetite ok- no weight loss Had a barium study-reviewed findings-recommendations Began omeprazole 20 mg - Seen back in - for colon screen- never followed due to dx prostate ca Cologuard pending No nausea, vomiting hematemesis, hematochezia fever chills PFSH Medical History Anxiety and depression Fatty liver GERD (gastroesophageal reflux disease) Obesity (BMI 30-39.9) Vitamin D deficiency Obstructive sleep apnea Hypercholesterolemia Hypertension Impaired fasting glucose Alcohol abuse Surgical History H/O nasal septoplasty Family History Father Alcoholism Breast cancer Mother Hypertension Hypercholesteremia Brother Hypercholesteremia Gout Maternal Grandfather Throat cancer Maternal Grandmother Hypertension Maternal Uncle Throat cancer Colon cancer Social History Household Members Other:: - 1 son Housing: House Alcohol intake: former Patient Tobacco Use Status: Former Tobacco user Tobacco use type: Cigar Years Smoked: quit 2020 e-Cigarette/Vaping Use: Never Used Second Hand Smoke Exposure: No service: Yes Current occupational status: employed Current occupation: [employer] Cognitive needs: No Hearing needs: No Vision needs: Yes Review of Systems Const All systems reviewed & are unremarkable except as noted in HPI and below ENT Reports nasal congestion Card Denies chest pain and Denies dyspnea Resp Reports cough, Reports excessive phlegm production and Denies dyspnea Psych Reports depression, Denies homicidal ideation and Denies suicidal ideation Physical Exam Vital Signs: Last Vital Signs Pulse 63 08/26/23 14:35 BP 138/72 08/26/23 14:35 BMI result Body Mass Index 31.7 Const General: cooperative, healthy appearing, comfortable and no acute distress Orientation/consciousness: patient oriented x3 Limitations: no limitations Eyes Conjunctivae: conjunctivae normal Sclerae: sclerae normal Resp Effort & Inspection: normal respiratory effort and able to speak in complete sentences Auscultation: clear to auscultation bilaterally, no rales, no rhonchi and no wheezes Cardio Rate: regular rate Rhythm: regular rhythm Heart sounds: S1 normal heart sound present and S2 normal heart sound present GI Palpation (GI): Soft to palpation and nontender Auscultation: normal bowel sounds Neuro General: patient oriented x3 Extrem General: Yes full ROM Psych Appearance: grossly normal and well kempt Mental Status: mental status grossly normal Speech and movement: Normal speech and movement present Affect: Labile affect present Attitude: cooperative Thought process: Normal thought process present Thought content: Normal thought content present Results Reviewed Results Reviewed: FL/FL barium swallow IMPRESSION: 1. Focal irregular mucosa/ulcerations of the distal esophagus suggestive of focal erosive esophagitis, possibly related to reflux. Recommend gastrointestinal consultation for consideration of an endoscopic evaluation. 2. Nonpropulsive tertiary contractions of distal esophagus present with mild esophageal dysmotility. 3. Small type I hiatal hernia. Grossly no gastroesophageal reflux is seen Assessment & Plan Assessment & Plan (1) Erosive esophagitis: Comment: Very pleasant, seemingly depressed 52-year-old male with abnormal findings on barium study- He does chronic cough, no dysphagia or odynophagia We increase omeprazole to 40 mg-will monitor, EGD-r/o underlying causes to include EOE Code(s): K22.10 - Ulcer of esophagus without bleeding Plan: Omeprazole 40 mg daily EGD (2) GERD (gastroesophageal reflux disease): Comment: some improvement Code(s): K21.9 - Gastro-esophageal reflux disease without esophagitis Qualifiers: Esophagitis presence: without esophagitis Qualified Code(s): K21.9 - Gastro-esophageal reflux disease without esophagitis Plan: EGD increase omeprazole Review reflux precautions (3) Hiatal hernia: Comment: reviewed barium swallow Code(s): K44.9 - Diaphragmatic hernia without obstruction or gangrene Plan: discussed- l/s change Remain upright 2-3 hours after eating specially evening meal (4) Esophageal dysmotility: Code(s): K22.4 - Dyskinesia of esophagus Plan EGD increased [id number] mg Orders: Orders EDG - GI Use Only 08/26/23 K22.10 - Ulcer of esophagus without bleeding, K44.9 - Diaphragmatic hernia without obstruction or gangrene Medications: New omeprazole 40 mg (2 x 20 mg) PO DAILY 30 days 60 caps 3RF Patient Instructions: He is scheduled EGD-review procedure, rare risk need for escorted due to anesthesia increased omepprazole 40 mg q.d. encouraged compliance reflux precautions-avoid culprits Encouraged to call questions or concerns No major barriers to understanding were identified Coding Level of Care Code New Pt Level 3 (76455) Diagnoses Erosive esophagitis K22.10 Gastroesophageal reflux disease without esophagitis K21.9 Esophagitis presence: without esophagitis Hiatal hernia K44.9 Esophageal dysmotility K22.4 Time Spent (min) 30
[2023-08-26 14:35] VITALS: BP 138/72; PULSE 63; BMI 31.7
== END 2023-08-26 16:05 | disposition home or self-care (01) ==
PROVIDERS: PCP Internal Medicine; Visit Provider Physician Assistant
DX: K22.10 Ulcer of esophagus without bleeding (principal); K21.9 Gastro-esophageal reflux disease without esophagitis; K22.4 Dyskinesia of esophagus
CPT/HCPCS: 99213

== ENCOUNTER → 2023-08-26 14:20 | Outpatient (BNVA) | payer BC, SELFPAY | PROVIDERS: PCP Internal Medicine; Visit Provider Physician Assistant ==

== ENCOUNTER 2023-08-29 08:23 | Outpatient (REF) | payer BC, SELFPAY ==
[2023-08-29 10:07] LABS: Prostate Specific Antigen 5.37 ng/mL (<0.05-4.0)
== END 2023-08-29 08:24 | disposition home or self-care (01) ==
LOC: HO.LAB 08:23
PROVIDERS: PCP Internal Medicine; Visit Provider Urology
DX: Z12.5 Encounter for screening for malignant neoplasm of prostate (principal); C61 Malignant neoplasm of prostate
CPT/HCPCS: 36415; 84153

== ENCOUNTER 2023-09-03 15:21 | Outpatient (AMB) | payer BC, SELFPAY ==
--- NOTE | 2023-09-03 15:27 | A.OFFVIS_ITS ---
Intake Intake Visit Reasons: 4M PSA(set) Intake Note: Patient is present for Follow Up PSA Results: Urology Med: Finasteride Antibiotic Allergy: None Blood Thinner: None Pharmacy: [facility] PSA Results: 5.37 ng/mL 08/29/2023 Gleason Operator Required: No Accompanied by: Self / Same As Patient Allergies lisinopril [LISINOPRIL] Allergy (Unknown, Verified 09/03/23 15:30) cough HPI HPI Comments History of Present Illness Details Won is a pleasant male. He is a patient of Dr. Kent. 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 Genetics indicate active surveillance group Printed genetic results and discussed with patient MRI 05/07 6 mm PI-RADS 4 lesion Continue finasteride 3 times a week and proceed with surveillance Treatment options including robotic prostatectomy discussed previously 09/06 5.4 Continue Q 4 month surveillance. Understands rebiopsy will be required in future Prostate cancer - 04/0623 Grade Group [address] Parson for rising PSA 03/07 PSA at diagnosis 5.7, free% 15 No family history TRUS - 45gm, T1c Barnet score: 3+3=6 - Grade group: 1 Number cores positive: 4 Total number of cores: 12 - LBL 10%, LML 5%, RML 10%, KARLA 5% Total Volume - Periprostatic fat inv.: Not identified Seminal vesicle inv.: Not identified Perineural inv.: Not identified LVI:Not identified Staging - 05/07 Genetics active surveillance - 05/07 MRI - 10mm lesion right anterior mid transition zone PiRADS 3, 6 mm left posterolateral mid peripheral zone PI-RADS 4 PFSH Medical History Alcohol abuse Anxiety and depression Fatty liver GERD (gastroesophageal reflux disease) Hypercholesterolemia Hypertension Impaired fasting glucose Obesity (BMI 30-39.9) Obstructive sleep apnea Vitamin D deficiency Surgical History H/O nasal septoplasty Family History Father Alcoholism Breast cancer Mother Hypertension Hypercholesteremia Brother Hypercholesteremia Gout Maternal Grandfather Throat cancer Maternal Grandmother Hypertension Maternal Uncle Throat cancer Colon cancer Social History Household Members Other:: - 1 son Housing: House Alcohol intake: former Patient Tobacco Use Status: Former Tobacco user Tobacco use type: Cigar Years Smoked: quit 2020 e-Cigarette/Vaping Use: Never Used Second Hand Smoke Exposure: No service: Yes Current occupational status: employed Current occupation: [email or web address] Cognitive needs: No Hearing needs: No Vision needs: Yes Review of Systems Const Denies chills and Denies fever(s) Card Reports no additional complaints and Denies syncope Resp Denies cough GI Denies abdominal pain and Denies heartburn Reports as per HPI and Denies change in libido Neuro Denies syncope Psych Denies change in libido Endo Denies change in libido Physical Exam Const General: cooperative, healthy appearing, comfortable and no acute distress Orientation/consciousness: patient oriented x3 HEENT Face and sinus: Yes normal facial exam Mouth: moist mucous membranes Neck Neck: Yes normal visual inspection, Yes full ROM and Yes trachea midline Chest Chest palpation & inspection: normal inspection of the chest Resp Effort & Inspection: normal respiratory effort, able to speak in complete sentences and no respiratory distress GI Inspection: Yes normal to inspection Back/Spine/Pelvis Cervical Spine: normal cervical lordosis Thoracic/Lumbar Spine: thoracic and lumbar spine normal to inspection Skin General skin exam: no rashes or lesions noted Neuro General: patient oriented x3, gait normal, tone normal and moves all extremities Extrem General: Yes normal to inspection and Yes capillary refill normal Assessment & Plan Assessment & Plan (1) Prostate cancer: Code(s): C61 - Malignant neoplasm of prostate Plan Continue surveillance Orders: Orders Prostate Specific Antigen 4 Months C61 - Malignant neoplasm of prostate Patient Instructions: Imaging studies, laboratory and physical exam results were discussed and reviewed in detail. No major barriers to patient understanding were identified. An opportunity to ask questions regarding the treatment plan was provided. All questions were answered. The patient expressed understanding and agreement with the above treatment plan. The patient is aware they should contact our office by phone for worsening of their current condition or the appearance of new urologic symptoms. Compliance is encouraged with any medications and followup testing that is ordered. It is a privilege to participate in the urologic care of your patient. If you have any questions or concerns regarding treatment for the above conditions, or other urologic issues, please do not hesitate to contact me. The office telephone contact is [phone]. This note is constructed using voice recognition software. 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 Yours sincerely, Dr Mikal Parson MD, [facility] - Urology Providers of Expert, Compassionate Care for the Genitourinary System Coding Level of Care Code Est Pt Level 3 (51323) Diagnoses Prostate cancer C61
== END 2023-09-03 15:58 | disposition home or self-care (01) ==
PROVIDERS: PCP Internal Medicine; Visit Provider Urology
DX: C61 Malignant neoplasm of prostate (principal)
CPT/HCPCS: 99213

== ENCOUNTER → 2023-09-03 15:21 | Outpatient (BNVA) | payer BC, SELFPAY | PROVIDERS: PCP Internal Medicine; Visit Provider Urology ==

== ENCOUNTER 2023-09-16 10:53 | Day surgery (SDC) | payer BC, SELFPAY ==
[2023-09-11 11:48] VITALS: BMI 31.7
--- NOTE | 2023-09-12 10:22 | P.CONAN_ITS ---
Documented by User: Mary Maier NP 09/12/23 10:24 HPI - Anesthesia Eval Consult details Narrative: 53yo M for Upper Endoscopy PMFSH Active Problems Active Problems: All Active Problems Prostate cancer (Acute) Esophageal dysmotility (Acute) Hiatal hernia (Acute) Erosive esophagitis (Acute) COVID-19 virus infection (Acute) Dysphagia (Acute) Prostatic adenocarcinoma (Acute) PSA elevation (Acute) Cough (Acute) Tinnitus (Acute) Cervical spinal stenosis (Acute) Annual physical exam (Acute) Left shoulder pain (Acute) Back pain (Acute) Generalized anxiety disorder (Acute) Annual physical exam (Acute) Renal insufficiency (Acute) Hyperbilirubinemia (Acute) Colon cancer screening (Acute) Impaired fasting glucose (Acute) Anxiety and depression (Acute) GERD (gastroesophageal reflux disease) (Acute) Obesity (BMI 30-39.9) (Acute) Vitamin D deficiency (Acute) Obstructive sleep apnea (Acute) Hypercholesterolemia (Acute) Hypertension (Acute) Alcohol abuse (Acute) Past Medical History Medical History Anxiety and depression Fatty liver GERD (gastroesophageal reflux disease) Obesity (BMI 30-39.9) Vitamin D deficiency Obstructive sleep apnea Hypercholesterolemia Hypertension Impaired fasting glucose Alcohol abuse Family History Family History Father Alcoholism Breast cancer Mother Hypertension Hypercholesteremia Brother Hypercholesteremia Gout Maternal Grandfather Throat cancer Maternal Grandmother Hypertension Maternal Uncle Throat cancer Colon cancer Surgical History Surgical History H/O nasal septoplasty Social History Social History Household Members Other:: - 1 son Housing: House Alcohol intake: former Patient Tobacco Use Status: Former Tobacco user Tobacco use type: Cigar Years Smoked: quit 2020 e-Cigarette/Vaping Use: Never Used Second Hand Smoke Exposure: No Advance Directives: No Advance Directives Information Provided: Yes service: Yes Current occupational status: employed Current occupation: [employer] Cognitive needs: No Hearing needs: No Vision needs: Yes Meds Allergies Allergy/AdvReac Type Severity Reaction Status Date / Time lisinopril [LISINOPRIL] Allergy Unknown cough Verified 09/03/23 15:30 Exam Height,Weight and Vital Signs: Height 5 ft 9 in Weight 97.522 kg Assessment and Plan Assessment Anesthesia Assessment: Chart Reviewed Documented by User: Timi Alves MD 09/16/23 11:03 [facility] Past Medical History Medical History Anxiety and depression Fatty liver GERD (gastroesophageal reflux disease) Obesity (BMI 30-39.9) Vitamin D deficiency Obstructive sleep apnea Hypercholesterolemia Hypertension Impaired fasting glucose Alcohol abuse Family History Family History Father Alcoholism Breast cancer Mother Hypertension Hypercholesteremia Brother Hypercholesteremia Gout Maternal Grandfather Throat cancer Maternal Grandmother Hypertension Maternal Uncle Throat cancer Colon cancer Family history of problems with anesthesia: No Surgical History Surgical History H/O nasal septoplasty History of Problems with Anesthesia: No Social History Social History Household Members Other:: - 1 son Housing: House Alcohol intake: former Patient Tobacco Use Status: Former Tobacco user Tobacco use type: Cigar Years Smoked: quit 2020 e-Cigarette/Vaping Use: Never Used Second Hand Smoke Exposure: No Advance Directives: No Advance Directives Information Provided: Yes service: Yes Current occupational status: employed Current occupation: [employer] Cognitive needs: No Hearing needs: No Vision needs: Yes Meds Allergies Allergy/AdvReac Type Severity Reaction Status Date / Time lisinopril [LISINOPRIL] Allergy Unknown cough Verified 09/03/23 15:30 Exam Airway Mallampati Class: II TM Dist: >3cm Neck ROM: Full Loose/Missing/Broken Teeth: No Heart: rrr+[id number] Lungs: cta b/l Assessment and Plan Assessment Anesthesia Assessment: Anesthesia Plan Discussed Final Anesthetic Review Family History of Problems with Anesthesia: No History of Problems with Anesthesia: No NPO: Yes ASA Class: II Final Preanesthetic Review: No Changes in Pt Med Stat, Meds/Allgs Chart Reviewed, Consent Obtained/Reviewed and Anes Risks/Benef Reviewed Patient Risk: Intermediate Procedure Risk: Intermediate Assessment/Block/Sedation in SS: Assess/Block/Sedation-SS Anesthetic Plan Anesthetic Plan: MAC: and Agree w/ Assess. and Plan Disposition: Standard PACU
--- NOTE | 2023-09-16 11:30 | MHC.SHP ---
Pre-Procedural Eval Section A Date of Service: 09/16/23 Section B Chief Complaint: Gastro-esophageal reflux disease without esophagit Relevant Family History (Specify if Yes): No Relevant Social History: None Present Medications: see Short Stay Collaborative assessment Medical History: Significant History (Anxiety and depression Fatty liver GERD (gastroesophageal reflux disease) Obesity (BMI 30-39.9) Vitamin D deficiency Obstructive sleep apnea Hypercholesterolemia Hypertension Impaired fasting glucose prior Alcohol abuse) History of Previous Operations: Relevant previous surgery/procedure and date(s) ( H/O nasal septoplasty) Allergies: Allergies Allergy/AdvReac Type Severity Reaction Status Date / Time lisinopril [LISINOPRIL] Allergy Unknown cough Verified 09/03/23 15:30 Review of Systems Sugical H&P ROS: Negative: Constitution, Cardiovascular, Respiratory, Neurological, Psychiatric, Hem-Onc, Allergic/Immunologic, Gastrointestinal, Genitourinary, Musculoskeletal, Integumentary, Endocrine and Eyes/Ears/Nose/Throat Exam Surgical H&P Exam: Normal: HEENT, Normal: Heart, Normal: Lungs, Normal: Extremities, Normal: Abdomen, Normal: Skin and Normal: Neurological Plan Diagnosis/Plan: Unchanged I have reviewed the history and physical and performed a pertinent physical examination on my patient. No changes have occurred unless specified. Time Spent With Patient Time: Total time managing care of this patient today ____ minutes.
--- NOTE | 2023-09-16 11:31 | W.PM.OPN ---
Operative Note Operative Note Date of Service: 09/16/23 Narrative: Procedure Description: EGD Indication: GERD Anesthesia: MAC FLEXIBLE TRANSORAL UPPER GASTROINTESTINAL ENDOSCOPY UPPER ENDOSCOPY Consent: Indications for the procedure and potential complications of bleeding, perforation, reaction to medications and missed diagnosis were discussed with the patient and informed consent was obtained. Instrument: Olympus GIF H 190 J mid size upper endoscope Monitoring: Vital signs and clinical assessment, continuous EKG monitoring, Pulse oximetry, Carbon Dioxide monitoring and blood pressure monitoring were done throughout the procedure. Procedure: The patient was placed in the left lateral decubitis position and pre-procedure medications were administered and a bite block was placed. The endoscope was inserted into the mouth and advanced under direct vision to the third part of duodenum. A careful inspection was made as the upper endoscope was withdrawn including a retroflexed examination of the proximal stomach; Findings and interventions are described below. Findings: Larynx:normal Esophagus: GE junction at 38 cm, diaphragm hiatus at 38 cm, erosive esophagitis with linear streak noted, bx taken from GEJ, distal and proximal esophagus Stomach: Patchy gastric erythema. Biopsies were obtained. Grade 2 flap valve on retroflexed examination of the cardia. Duodenum: Normal bulb and descending duodenum, Intervention: Biopsies as noted above Impression/Findings: erosive esophagitis gastritis PLAN: GERD precautions cont with PPi as working well for him
[2023-09-16 11:53] VITALS: BP 104/65; PULSE 84; RESP 16; TEMP 36.6; O2SAT 95
[2023-09-16 12:08] VITALS: BP 118/79; PULSE 65; RESP 16; TEMP 36.6; O2SAT 95
== END 2023-09-16 12:50 | disposition home or self-care (01) ==
PROVIDERS: PCP Internal Medicine; Visit Provider Internal Medicine Gastroenterology
PROC: 0DJ08ZZ Inspection of Upper Intestinal Tract, Via Natural or Artificial Opening Endoscopic (ICD-10-PCS; CPT 43235; principal; 2023-09-16 11:50)
DX: K21.9 Gastro-esophageal reflux disease without esophagitis (principal); K22.10 Ulcer of esophagus without bleeding; K29.50 Unspecified chronic gastritis without bleeding; K44.9 Diaphragmatic hernia without obstruction or gangrene; K22.4 Dyskinesia of esophagus; F41.8 Other specified anxiety disorders; K64.0 First degree hemorrhoids; E55.9 Vitamin D deficiency, unspecified; G47.33 Obstructive sleep apnea (adult) (pediatric); I10 Essential (primary) hypertension; E78.00 Pure hypercholesterolemia, unspecified; R73.01 Impaired fasting glucose; F10.10 Alcohol abuse, uncomplicated; Z79.899 Other long term (current) drug therapy; Z88.8 Allergy status to other drugs, medicaments and biological substances; E66.9 Obesity, unspecified; Z68.31 Body mass index [BMI] 31.0-31.9, adult; Z87.891 Personal history of nicotine dependence
CPT/HCPCS: 43239; 88305; 88342; J2704

== ENCOUNTER → 2023-09-16 10:53 | Outpatient (BNV) | payer BC, SELFPAY | PROVIDERS: PCP Internal Medicine; Visit Provider Internal Medicine Gastroenterology | DX: K20.90 Esophagitis, unspecified without bleeding (principal); K29.70 Gastritis, unspecified, without bleeding | CPT/HCPCS: 43239 ==

== ENCOUNTER 2023-09-24 14:02 | Outpatient (AMB) | payer BC, SELFPAY ==
[2023-09-24 14:16] VITALS: BP 122/61; PULSE 73; BMI 31.7
--- NOTE | 2023-09-24 14:16 | MHC.OFFVIS ---
Intake Vital Signs 09/24/23 14:16 Height 5 ft 9 in Weight 215 lb BMI 31.7 BP 122/61 Blood Pressure Location Lt brachial Position Sitting Pulse 73 Intake Visit Reasons: s/p egd Smyth Intake Note: Patient follow up for EGD results. Patient denies any GI issues. Certified Orthotist/Pedorthist Required: No Accompanied by: Self / Same As Patient Allergies lisinopril [LISINOPRIL] Allergy (Unknown, Verified 09/24/23 14:16) cough Medication List - Last Reconciled 09/24/23 by Consuelo Miller PA-C amlodipine 10 mg PO DAILY atorvastatin 20 mg PO DAILY 90 days finasteride 5 mg PO DAILY 90 days losartan 50 mg PO DAILY omeprazole 40 mg (2 x 20 mg) PO DAILY 30 days sertraline 25 mg PO DAILY HPI HPI Comments History of Present Illness Details Pleasant 63-year-old Gent follows up after recent EGD for erosive esophagitis Tolerated procedure well He has had PPI increased since procedure and feels that his coverage is much better He has no concerns today Reviewed procedure report, pathology and recommendation No nausea, vomiting fever chills PFSH Medical History Anxiety and depression Fatty liver GERD (gastroesophageal reflux disease) Obesity (BMI 30-39.9) Vitamin D deficiency Obstructive sleep apnea Hypercholesterolemia Hypertension Impaired fasting glucose Alcohol abuse Surgical History (Updated 09/24/23 @ 13:40 by Poly Wyatt) History of esophagogastroduodenoscopy (EGD) H/O nasal septoplasty Family History Father Alcoholism Breast cancer Mother Hypertension Hypercholesteremia Brother Hypercholesteremia Gout Maternal Grandfather Throat cancer Maternal Grandmother Hypertension Maternal Uncle Throat cancer Colon cancer Social History Household Members Other:: - 1 son Housing: House Alcohol intake: former Patient Tobacco Use Status: Former Tobacco user Tobacco use type: Cigar Years Smoked: quit 2020 e-Cigarette/Vaping Use: Never Used Second Hand Smoke Exposure: No service: Yes Current occupational status: employed Current occupation: [employer] Cognitive needs: No Hearing needs: No Vision needs: Yes Review of Systems Const All systems reviewed & are unremarkable except as noted in HPI and below Card Denies chest pain and Denies dyspnea Resp Denies dyspnea GI Denies abdominal pain, Reports heartburn, Denies nausea and Denies vomiting Physical Exam Vital Signs: Last Vital Signs Pulse 73 09/24/23 14:16 BP 122/61 09/24/23 14:16 BMI result Body Mass Index 31.7 Const General: cooperative, healthy appearing, comfortable and no acute distress Orientation/consciousness: patient oriented x3 Limitations: no limitations Eyes Sclerae: sclerae normal Resp Effort & Inspection: normal respiratory effort and able to speak in complete sentences Skin General skin exam: no rashes or lesions noted Neuro General: patient oriented x3 Extrem General: Yes full ROM Psych Appearance: grossly normal and well kempt Mental Status: mental status grossly normal Speech and movement: Normal speech and movement present and Clear speech present Attitude: cooperative Thought process: Normal thought process present Thought content: Normal thought content present Insight: Good insight present (Psych) Judgement: Good judgement present (Psych) Results Reviewed Results Reviewed: Impression/Findings: erosive esophagitis gastritis PLAN: GERD precautions cont with PPi as working well for him Name: David Perez Age/Sex: 53/M Attending: Pavel Smyth MD : 1970 Submitted by: Pavel Smyth MD Copies to: [place] Kent MD MR #: [id number] Status: [facility] Collected: 09/16/23 Location: [facility] Received: 09/16/23 Diagnosis A. Stomach, biopsy: Oxyntic mucosa with mild chronic inactive inflammation; no Helicobacter organisms seen. B. GE junction, biopsy: - Cardiofundic-type mucosa with mild chronic inactive inflammation; no intestinal metaplasia seen. - Active esophagitis (maximum eosinophil count 12 per high powered field). C. Esophagus, distal, biopsy: Squamous epithelium within normal limits; no inflammation seen. D. Esophagus, proximal, biopsy: Squamous epithelium within normal limits; no inflammation seen. Clinical History Pre-Op Dx: GERD Post-Op Dx: Erosive esophagitis, mild gastritis Microscopic Description A-D. Microscopic sections reviewed. Immunostain for H. pylori is non-reactive (A). Material Received A. Stomach bx's B. GE junction bx's C. Distal esophagus bx's D. Proximal esophagus bx's Gross Description Received in 4 parts. Part A: Received in formalin labeled ?stomach bx's? are 3 saul-pink irregular tissue fragments ranging from 0.2-0.3 cm, submitted in toto in a cassette labeled A. Part B: Received in formalin labeled ?GE junction bx's? are 6 morris-white and saul irregular tissue fragments ranging from 0.1-0.3 cm, submitted in toto in a cassette labeled B. Part C: Received in formalin labeled ?distal esophagus bx's? are 2 pale, morris-white irregular tissue fragments measuring 0.2 and 0.35 cm, submitted in toto in a cassette labeled C. Patient: David Perez Age/Sex: 53/M MR#: [id number] Page 1 of 2 Assessment & Plan Assessment & Plan (1) Erosive esophagitis: Comment: Very pleasant, seemingly depressed 53-year-old male with abnormal findings on barium study- follows up after recent EGD-with biopsies He does chronic cough, no dysphagia or odynophagia Code(s): K22.10 - Ulcer of esophagus without bleeding Plan: Continue omeprazole 40 mg daily Dietary modifications reviewed Repeat EGD 6-[address] Smyth Medications: Refilled omeprazole 40 mg (2 x 20 mg) PO DAILY 30 days 60 caps 3RF Patient Instructions: Continue omeprazole 40 mg daily Dietary modifications reviewed Repeat EGD 6-[address] Smyth Encouraged to call with questions or concerns Appreciate the opportunity assist in the care this pleasant Gent Coding Level of Care Code Est Pt Level 3 (41876) Diagnoses Erosive esophagitis K22.10 Time Spent (min) 20
== END 2023-09-24 15:59 | disposition home or self-care (01) ==
PROVIDERS: PCP Internal Medicine; Visit Provider Physician Assistant
DX: K22.10 Ulcer of esophagus without bleeding (principal)
CPT/HCPCS: 99213

== ENCOUNTER → 2023-09-24 14:02 | Outpatient (BNVA) | payer BC, SELFPAY | PROVIDERS: PCP Internal Medicine; Visit Provider Physician Assistant ==

== ENCOUNTER 2023-11-03 14:51 | Outpatient (AMB) | payer BC, SELFPAY ==
--- NOTE | 2023-11-03 15:04 | MHC.PC.OV ---
Vital Signs 11/03/23 15:07 Height 5 ft 9 in Weight 225 lb 8 oz BMI 33.3 BP 132/70 Blood Pressure Location Lt brachial Position Sitting Pulse 71 Pulse Source Pulse Oximeter Pulse Oximetry (%) 98 Oxygen Delivery Method Room Air Intake Visit Reasons: 6 month f/u Intake Note: Patient is here to follow up on GERD, Impaired fasting glucose, HTN, Hypercholesterlemia. Hat Ironer Required: No Buttonhole Facer: Not Required per policy Accompanied by: Self / Same As Patient Allergies lisinopril [LISINOPRIL] Allergy (Unknown, Verified 11/03/23 15:07) cough Tobacco use date assessed: 11/03/23 Dental Screening Dental Screen Date: 11/03/23 Did you have a dental visit in the last 12 months?: Yes Did you have a dental problem in the last 6 months where you did not have access to dental care?: No Was dental information given to patient?: Patient has dentist HPI 6 month f/u HPI Details 53-year-old obese male with prostate cancer impaired glucose tolerance GERD obstructive sleep apnea hypercholesterolemia hypertension and generalized anxiety disorder last seen in April 2023. Patient is here for follow-up. Patient did have EGD done September 2023. Diagnosis of erosive esophagitis omeprazole prescribed advised repeat EGD in 6-12 months. Patient also follows up with urology presently on finasteride March 2023 patient is in the genetics active surveillance. PFSH Medical History Prostate cancer PSA elevation Anxiety and depression Fatty liver GERD (gastroesophageal reflux disease) Obesity (BMI 30-39.9) Vitamin D deficiency Obstructive sleep apnea Hypercholesterolemia Hypertension Impaired fasting glucose Alcohol abuse Surgical History (Updated 11/03/23 @ 15:11 by BC Mares) History of prostate biopsy History of esophagogastroduodenoscopy (EGD) H/O nasal septoplasty Family History Father Alcoholism Breast cancer Mother Hypertension Hypercholesteremia Brother Hypercholesteremia Gout Maternal Grandfather Throat cancer Maternal Grandmother Hypertension Maternal Uncle Throat cancer Colon cancer Social History Household Members Other:: - 1 son Housing: House Alcohol intake: former Patient Tobacco Use Status: Former Tobacco user Tobacco use type: Cigar Years Smoked: quit 2020 e-Cigarette/Vaping Use: Never Used Second Hand Smoke Exposure: No service: Yes Current occupational status: employed Current occupation: [employer] Cognitive needs: No Hearing needs: No Vision needs: Yes Questionnaire PHQ-9 Over the last 2 weeks, how often have you been bothered by any of the following problems? 1. Little interest or pleasure in doing things: not at all 2. Feeling down, depressed, or hopeless: not at all 3. Trouble falling or staying asleep, or sleeping too much: not at all 4. Feeling tired or having little energy: not at all 5. Poor appetite or overeating: not at all 6. Feeling bad about yourself - or that you are a failure or have let yourself or your family down: not at all 7. Trouble concentrating on things, such as reading the newspaper or watching television: not at all 8. Moving or speaking so slowly that other people could have noticed. Or the opposite - being so fidgety or restless that you have been moving around a lot more than usual: not at all 9. Thoughts that you would be better off or of hurting yourself in some way: not at all Total score: 0 Depression Screening Interpretation: Negative Depression Screening Done: Yes Source: Developed by Drs. Jass Arias, Nicole Holland, Leobardo Baca and colleagues, with an educational jody from [employer]. Thrive Questionnaire Date Thrive assessed: 11/03/23 I am a: Patient What is your living situation today?: I have a steady place to live Within the past 12 months, did the food you bought not last and you didn't have the money to get more?: Never true Within the past 12 months, did you worry whether your food would run out before you got money to buy more?: Never true Do you have trouble paying for medicines?: No Do you have trouble getting transportation to medical appointments?: No Do you have trouble paying your heating and electricity bill?: No Do you have trouble taking care of your child, family member or friend?: No Do you have trouble with day-to-day activities such as bathing, preparing meals, shopping, managing finances, etc.?: No Are you currently unemployed and looking for a job?: No Are you interested in more education?: No Currently or been in a relationship where the following occur: no concerns reported THRIVE Score: 0 AUDIT C Alcohol Use Questionnaire (AUDIT-C) 1. How often do you have a drink containing alcohol?: Never Total Score: 0 DEYSI-7 AMB Questionnaire DEYSI-7 Date DEYSI - 7 assessed: 11/03/23 Feeling nervous, anxious, or on edge: 0 = Not at all Not being able to stop or control worryin = Not at all Worrying too much about different things: 0 = Not at all Trouble relaxin = Not at all Being so restless that it is hard to sit still: 0 = Not at all Becoming easily annoyed or irritable: 0 = Not at all Feeling afraid as if something awful might happen: 0 = Not at all Total DEYSI-7 score (0-4 normal; 5-9 mild; 10-14 moderate; 15-21 severe): 0 Source: Developed by Drs. Jass Arias, Nicole Holland, Leobardo Baca and colleagues, with an educational jody from [employer]. Physical exam (Primary Care) Vital Signs: Last Vital Signs Pulse 71 11/03/23 15:07 BP 132/70 11/03/23 15:07 Pulse Ox 98 11/03/23 15:07 Oxygen Delivery Method Room Air 11/03/23 15:07 BMI result Body Mass Index 33.3 Tobacco/Smoking Status: Tobacco use Status Tobacco use date assessed 11/03/23 11/03/23 15:14 Patient Tobacco Use Status Former Tobacco user 11/03/23 15:14 Tobacco use type Cigar 11/03/23 15:14 e-Cigarette/Vaping Use Never Used 11/03/23 15:14 PHQ-9: PHQ-9 Score PHQ-9: Total score 0 11/03/23 15:14 Depression Screening Interpretation: Negative Thrive Assessment: Date of Thrive Assessment Date Thrive assessed 11/03/23 11/03/23 15:14 Currently or been in a relationship where the following occur: no concerns reported Const General: alert; No acute distress Eyes Conjunctivae: conjunctivae normal Resp Auscultation: clear to auscultation bilaterally Cardio Rate: regular rate Rhythm: regular rhythm GI Inspection: Yes normal to inspection Extrem General: Yes normal to inspection and No edema Results AMB Hemoglobin A1c AMB Hemoglobin A1c 5.9 % Last Edit by BC Mares on 11/03/23 15:22 Results Reviewed Results Reviewed: Laboratory Last Values Hgb A1c (Clinic) 5.9 % (4.0-6.0) 11/03/23 15:04 Assessment and Plan Assessment & Plan (1) Erosive esophagitis: Comment: Very pleasant, seemingly depressed 53-year-old male with abnormal findings on barium study- follows up after recent EGD-with biopsies He does chronic cough, no dysphagia or odynophagia Code(s): K22.10 - Ulcer of esophagus without bleeding Plan: Continue to follow-up with Gastroenterology has had EGD done and continue with omeprazole. rescope 02/2024 (2) Prostatic adenocarcinoma: Comment: 03/07 - Grade Group 1 Prolaris Active Surveillance Code(s): C61 - Malignant neoplasm of prostate Plan: Patient on active surveillance under urology presently on finasteride. (3) Obesity (BMI 30-39.9): Code(s): E66.9 - Obesity, unspecified Plan: Diet and exercise (4) Hypertension: Code(s): I10 - Essential (primary) hypertension Qualifiers: Hypertension type: essential hypertension Qualified Code(s): I10 - Essential (primary) hypertension Plan: Continue with blood pressure medication. Decrease salt intake and exercise on losartan 50 mg once a day and amlodipine 10 mg once a day (5) Hypercholesterolemia: Code(s): E78.00 - Pure hypercholesterolemia, unspecified Plan: Avoid fried foods, chicken skin, eggs, butter margarine, pastries and meat. Be it pork or beef they have a lot of cholesterol on atorvastatin 20 mg once a (6) GERD (gastroesophageal reflux disease): Comment: some improvement Code(s): K21.9 - Gastro-esophageal reflux disease without esophagitis Qualifiers: Esophagitis presence: without esophagitis Qualified Code(s): K21.9 - Gastro-esophageal reflux disease without esophagitis Plan: GERD plan (7) Generalized anxiety disorder: Comment: decline counselling 10/2021 Code(s): F41.1 - Generalized anxiety disorder Plan: Continue with present medication. (8) Glaucoma: Comment: brian acosta and lasik- laser surgery 08/2023 Code(s): H40.9 - Unspecified glaucoma Orders: Orders AMB Hemoglobin A1c Today R73.01 - Impaired fasting glucose Lipid Panel Today E78.00 - Pure hypercholesterolemia, unspecified Vitamin B12 and Folate Today E78.00 - Pure hypercholesterolemia, unspecified Comprehensive Met. Panel Today R73.01 - Impaired fasting glucose Complete Blood Count Auto Diff Today E78.00 - Pure hypercholesterolemia, unspecified Thyroid Stimulating Hormone Today E78.00 - Pure hypercholesterolemia, unspecified Free T4 (Free Thyroxine) Today E78.00 - Pure hypercholesterolemia, unspecified Coding Level of Care Code Est Pt Level 4 (63942) Diagnoses Erosive esophagitis K22.10 Prostatic adenocarcinoma C61 Obesity (BMI 30-39.9) E66.9 Essential hypertension I10 Hypertension type: essential hypertension Hypercholesterolemia E78.00 Gastroesophageal reflux disease without esophagitis K21.9 Esophagitis presence: without esophagitis Generalized anxiety disorder F41.1 Glaucoma H40.9
[2023-11-03 15:07] VITALS: BP 132/70; PULSE 71; O2SAT 98; BMI 33.3
== END 2023-11-03 15:34 | disposition home or self-care (01) ==
PROVIDERS: PCP Internal Medicine; Visit Provider Internal Medicine
DX: K22.10 Ulcer of esophagus without bleeding (principal); C61 Malignant neoplasm of prostate; E66.9 Obesity, unspecified; Z68.33 Body mass index [BMI] 33.0-33.9, adult; R73.01 Impaired fasting glucose; I10 Essential (primary) hypertension; E78.00 Pure hypercholesterolemia, unspecified; K21.9 Gastro-esophageal reflux disease without esophagitis; F41.1 Generalized anxiety disorder; H40.9 Unspecified glaucoma
CPT/HCPCS: 83036; 99214

== ENCOUNTER 2023-11-26 08:26 | Outpatient (REF) | payer BC, SELFPAY ==
[2023-11-26 08:52] LABS: MANUAL DIFF FLAG NO
[2023-11-26 09:31] LABS: Basophils Percent Auto 0.3 % (0-2); Eosinophils Absolute Auto 0.2 X10*3/uL (0.0-0.4); Eosinophils Percent Auto 2.5 % (0-4); Hematocrit 43.5 % (42.0-52.0); Hemoglobin 15.1 g/dl (14.0-18.0); Imm Gran Abs Auto 0.04 X10*3/uL (0.00-0.03); Imm Gran Pct Auto 0.4 % (0.0-0.4); Lymphocytes Absolute Auto 1.3 X10*3/uL (1.2-4.9); Lymphocytes Percent Auto 13.7 % (20-40); Mean Corpuscular HGB Conc 34.7 g/dl (31.0-36.0); Mean Corpuscular Hemoglobin 29.5 pg (27.0-33.0); Mean Platelet Volume 12.2 fL (9.4-12.4); Monocytes Absolute Auto 0.7 X10*3/uL (0.1-1.2); Monocytes Percent Auto 7.4 % (2-11); Neutrophils Absolute Auto 6.9 x10*3/uL (2.0-8.3); Neutrophils Percent Auto 75.7 % (45-73); Platelet Count 219 X10*3/uL (160-400); Red Blood Count 5.12 X10*6/uL (4.60-5.80); Red Cell Distribution Width 12.9 % (11.0-16.0); White Blood Count 9.2 X10*3/uL (4.8-10.8)
[2023-11-26 10:11] LABS: Alanine Aminotransferase 27 U/L (0-40); Albumin Level 4.8 g/dL (3.5-5.0); Alkaline Phosphatase 69 U/L (39-117); Anion Gap 13 (12-20); Aspartate Amino Transferase 24 U/L (5-37); Bilirubin Total 1.1 mg/dL (0.0-1.0); Blood Urea Nitrogen 15 mg/dL (9-16); Calcium 10.1 mg/dL (8.4-10.2); Carbon Dioxide 28 mmol/L (22-29); Chloride 104 mmol/L (96-108); Cholesterol 161 mg/dL (<200); Estimated Glomerular Filt Rate > 60; Glucose Random 110 mg/dL (60-115); HDL Cholesterol 33 mg/dL (>40); LDL Cholesterol Calculated 98 mg/dL (<100); Potassium 4.1 mmol/L (3.3-5.1); Sodium 141 mmol/L (135-145); Total Protein 7.8 g/dL (6.5-8.0); Triglycerides 150 mg/dL (<150)
[2023-11-26 10:20] LABS: Free T4 (Free Thyroxine) 1.16 ng/dL (0.71-1.85); Thyroid Stimulating Hormone 1.13 uIU/mL (0.32-4.0)
[2023-11-26 10:36] LABS: Folate 9.4 ng/mL (> or = 4.0); Vitamin B12 430 pg/mL (200-900)
== END 2023-11-26 08:27 | disposition home or self-care (01) ==
LOC: HO.LAB 08:26
PROVIDERS: PCP Internal Medicine; Visit Provider Internal Medicine
DX: E78.00 Pure hypercholesterolemia, unspecified (principal); R73.01 Impaired fasting glucose
CPT/HCPCS: 36415; 80053; 80061; 82607; 82746; 84439; 84443; 85025

== ENCOUNTER 2024-01-02 11:50 | Outpatient (REF) | payer BC, SELFPAY ==
[2024-01-02 17:12] LABS: Prostate Specific Antigen 6.14 ng/mL (<0.05-4.0)
== END 2024-01-02 11:51 | disposition home or self-care (01) ==
LOC: HO.LAB 11:50
PROVIDERS: PCP Internal Medicine; Visit Provider Urology
DX: Z12.5 Encounter for screening for malignant neoplasm of prostate (principal); C61 Malignant neoplasm of prostate
CPT/HCPCS: 36415; 84153

== ENCOUNTER 2024-01-09 15:42 | Outpatient (AMB) | payer BC, SELFPAY ==
--- NOTE | 2024-01-09 15:46 | A.OFFVIS_ITS ---
Intake Visit Reasons: 4m PSA(set) Intake Note: Patient is Present for Follow Up Urology Medication: Finasteride, Antibiotic Allergies: None Blood Thinners:None Allergies lisinopril [LISINOPRIL] Allergy (Unknown, Verified 02/18/24 07:53) cough HPI Comments Details: Won is a pleasant male. He is a patient of Dr. Kent. 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 01/06 PSA 6 Genetics indicate active surveillance group MRI 05/07 6 mm PI-RADS 4 lesion left posterolateral transition zone, right anterior transition zone mid gland PI-RADS 3 Continue finasteride 3 times a week and proceed with surveillance Treatment options including robotic prostatectomy discussed previously 09/06 5.4 Continue Q 4 month surveillance. Understands rebiopsy will be required in future Prostate cancer - 04/0623 Grade Group [address] Parson for rising PSA 03/07 PSA at diagnosis 5.7, free% 15 No family history TRUS - 45gm, T1c Colliers score: 3+3=6 - Grade group: 1 Number cores positive: 4 Total number of cores: 12 - LBL 10%, LML 5%, RML 10%, KARLA 5% Total Volume - Periprostatic fat inv.: Not identified Seminal vesicle inv.: Not identified Perineural inv.: Not identified LVI:Not identified Staging - 05/07 Genetics active surveillance - Prolaris - 05/07 MRI - 10mm lesion right anterior mid transition zone PiRADS 3, 6 mm left posterolateral mid peripheral zone PI-RADS 4 PFSH Medical History Prostate cancer PSA elevation Anxiety and depression Fatty liver GERD (gastroesophageal reflux disease) Obesity (BMI 30-39.9) Vitamin D deficiency Obstructive sleep apnea Hypercholesterolemia Hypertension Impaired fasting glucose Alcohol abuse Surgical History History of prostate biopsy History of esophagogastroduodenoscopy (EGD) H/O nasal septoplasty Family History Father Alcoholism Breast cancer Mother Hypertension Hypercholesteremia Brother Hypercholesteremia Gout Maternal Grandfather Throat cancer Maternal Grandmother Hypertension Maternal Uncle Throat cancer Colon cancer Social History (Updated 02/06/24 @ 16:03 by Jamaica Kent MD) Household Members Other:: - 1 son Housing: House Alcohol intake: former Comment: 2019 last drink Patient Tobacco Use Status: Former Tobacco user Tobacco use type: Cigar Years Smoked: quit 2020 e-Cigarette/Vaping Use: Never Used Second Hand Smoke Exposure: No service: Yes Current occupational status: employed Current occupation: [employer] Cognitive needs: No Hearing needs: No Vision needs: Yes Review of Systems Const Denies chills and Denies fever(s) Card Reports no additional complaints and Denies syncope Resp Denies cough GI Denies abdominal pain and Denies heartburn Reports as per HPI and Denies change in libido Neuro Denies syncope Psych Denies change in libido Endo Denies change in libido Physical Exam Const General: cooperative, healthy appearing, comfortable and no acute distress Orientation/consciousness: patient oriented x3 HEENT Face and sinus: Yes normal facial exam Mouth: moist mucous membranes Neck Neck: Yes normal visual inspection, Yes full ROM and Yes trachea midline Chest Chest palpation & inspection: normal inspection of the chest Resp Effort & Inspection: normal respiratory effort, able to speak in complete sentences and no respiratory distress GI Inspection: Yes normal to inspection Back/Spine/Pelvis Cervical Spine: normal cervical lordosis Thoracic/Lumbar Spine: thoracic and lumbar spine normal to inspection Skin General skin exam: no rashes or lesions noted Neuro General: patient oriented x3, gait normal, tone normal and moves all extremities Extrem General: Yes normal to inspection and Yes capillary refill normal Assessment & Plan Assessment & Plan (1) Prostatic adenocarcinoma: Comment: 03/07 - Grade Group 1 Prolaris Active Surveillance Code(s): C61 - Malignant neoplasm of prostate Category: Medical Plan Three-month follow-up PSA Orders: Orders PSA,Total (Free>4and<10) 3 Months C61 - Malignant neoplasm of prostate Patient Instructions: Imaging studies, laboratory and physical exam results were discussed and reviewed in detail. No major barriers to patient understanding were identified. An opportunity to ask questions regarding the treatment plan was provided. All questions were answered. The patient expressed understanding and agreement with the above treatment plan. The patient is aware they should contact our office by phone for worsening of their current condition or the appearance of new urologic symptoms. Compliance i s encouraged with any medications and followup testing that is ordered. It is a privilege to participate in the urologic care of your patient. If you have any questions or concerns regarding treatment for the above conditions, or other urologic issues, please do not hesitate to contact me. The office telephone contact is [phone]. This note is constructed using voice recognition software. While every effort has been made to ensure accuracy forestry supervisor errors may have been included. Yours sincerely, Dr Mikal Parson MD, [facility] - Urology Providers of Expert, Compassionate Care for the Genitourinary System Coding Level of Care Code Est Pt Level 3 (42616) Diagnoses Prostatic adenocarcinoma C61
== END 2024-01-09 16:16 | disposition home or self-care (01) ==
PROVIDERS: PCP Internal Medicine; Visit Provider Urology
DX: C61 Malignant neoplasm of prostate (principal)
CPT/HCPCS: 99213

== ENCOUNTER → 2024-01-09 15:42 | Outpatient (BNVA) | payer BC, SELFPAY | PROVIDERS: PCP Internal Medicine; Visit Provider Urology ==

== ENCOUNTER 2024-02-06 15:21 | Outpatient (AMB) | payer BC, SELFPAY ==
--- NOTE | 2024-02-06 15:29 | MHC.PC.OV ---
Vital Signs 02/06/24 15:36 02/06/24 15:59 Height 5 ft 9 in Weight 225 lb BMI 33.2 BP 104/72 122/80 Blood Pressure Location Lt brachial Lt brachial Position Sitting Sitting Pulse 96 Pulse Source Pulse Oximeter Pulse Oximetry (%) 99 Oxygen Delivery Method Room Air Intake Visit Reasons: cholesterol , IGT Allergies lisinopril [LISINOPRIL] Allergy (Unknown, Verified 02/06/24 15:39) cough Tobacco use date assessed: 02/06/24 Dental Screening Dental Screen Date: 11/03/23 HPI cholesterol , IGT HPI Details 53-year-old obese male with erosive esophagitis prostate cancer hypertension hypercholesterolemia GERD generalized anxiety disorder last seen in 11/04/2023. Patient comes in for follow-up. Patient follows up with urology seen in 01/03/2024 placed on finasteride MRI done 05/04/2023 patient also follows up with [facility] for the neck pain having facet injections. c retiring June 12, 2024 PFS Medical History Prostate cancer PSA elevation Anxiety and depression Fatty liver GERD (gastroesophageal reflux disease) Obesity (BMI 30-39.9) Vitamin D deficiency Obstructive sleep apnea Hypercholesterolemia Hypertension Impaired fasting glucose Alcohol abuse Surgical History History of prostate biopsy History of esophagogastroduodenoscopy (EGD) H/O nasal septoplasty Family History Father Alcoholism Breast cancer Mother Hypertension Hypercholesteremia Brother Hypercholesteremia Gout Maternal Grandfather Throat cancer Maternal Grandmother Hypertension Maternal Uncle Throat cancer Colon cancer Social History (Updated 02/06/24 @ 16:03 by Jamaica Kent MD) Household Members Other:: - 1 son Housing: House Alcohol intake: former Comment: 2019 last drink Patient Tobacco Use Status: Former Tobacco user Tobacco use type: Cigar Years Smoked: quit 2020 e-Cigarette/Vaping Use: Never Used Second Hand Smoke Exposure: No service: Yes Current occupational status: employed Current occupation: [employer] Cognitive needs: No Hearing needs: No Vision needs: Yes Questionnaire Thrive Questionnaire Date Thrive assessed: 11/03/23 AUDIT C Alcohol Use Questionnaire (AUDIT-C) 1. How often do you have a drink containing alcohol?: Never Total Score: 0 DEYSI-7 AMB Questionnaire DEYSI-7 Date DEYSI - 7 assessed: 11/03/23 Source: Developed by Drs. Jass Arias, Nicole Holland, Leobardo Baca and colleagues, with an educational jody from [employer]. Physical exam (Primary Care) Vital Signs: Last Vital Signs Pulse 96 02/06/24 15:36 BP 122/80 02/06/24 15:59 Pulse Ox 99 02/06/24 15:36 Oxygen Delivery Method Room Air 02/06/24 15:36 BMI result Body Mass Index 33.2 Tobacco/Smoking Status: Tobacco use Status Tobacco use date assessed 02/06/24 02/06/24 15:40 Patient Tobacco Use Status Former Tobacco user 02/06/24 16:03 Tobacco use type Cigar 02/06/24 16:03 e-Cigarette/Vaping Use Never Used 02/06/24 16:03 Thrive Assessment: Date of Thrive Assessment Date Thrive assessed 11/03/23 02/06/24 15:30 Const General: alert; No acute distress Eyes Conjunctivae: conjunctivae normal Resp Auscultation: clear to auscultation bilaterally Cardio Rate: regular rate Rhythm: regular rhythm GI Inspection: Yes normal to inspection Extrem General: Yes normal to inspection and No edema Assessment and Plan Assessment & Plan (1) Prostatic adenocarcinoma: Comment: 03/07 - Grade Group 1 Prolaris Active Surveillance Code(s): C61 - Malignant neoplasm of prostate Plan: Patient continue to follow-up with urology and on active surveillance placed on finasteride 5 mg once a day (2) Hypertension: Code(s): I10 - Essential (primary) hypertension Qualifiers: Hypertension type: essential hypertension Qualified Code(s): I10 - Essential (primary) hypertension Plan: Continue with blood pressure medication. Decrease salt intake and exercise on losartan 50 mg once a day and amlodipine 10 mg once a day (3) Hypercholesterolemia: Code(s): E78.00 - Pure hypercholesterolemia, unspecified Plan: Avoid fried foods, chicken skin, eggs, butter margarine, pastries and meat. Be it pork or beef they have a lot of cholesterol atorvastatin 20 mg once a day 12/02/2022 last blood work LDL goal of less than 130 and triglyceride of less than 150 (4) Obesity (BMI 30-39.9): Code(s): E66.9 - Obesity, unspecified Plan: Diet and exercise (5) GERD (gastroesophageal reflux disease): Comment: some improvement Code(s): K21.9 - Gastro-esophageal reflux disease without esophagitis Qualifiers: Esophagitis presence: without esophagitis Qualified Code(s): K21.9 - Gastro-esophageal reflux disease without esophagitis Plan: Avoid the foods that causes that usually spicy foods, tomato products, juices, coffee, soda and foods that your sensitive to. After eating do not lie down, allow 3-4 hours before in lie down. And keep the head of bed above 30 degrees to avoid the acid from going up. (6) Impaired fasting glucose: Code(s): R73.01 - Impaired fasting glucose Plan: Decrease the amount of carbohydrate intake, pasta, bread, rice and potatoes are all sugar and that is aside from all the sweet stuff, remember that fruits are good but they are Sweet also. (7) Generalized anxiety disorder: Comment: decline counselling 10/2021 Code(s): F41.1 - Generalized anxiety disorder Plan: Continue with present medication Coding Level of Care Code Est Pt Level 4 (97982) Diagnoses Prostatic adenocarcinoma C61 Essential hypertension I10 Hypertension type: essential hypertension Hypercholesterolemia E78.00 Obesity (BMI 30-39.9) E66.9 Gastroesophageal reflux disease without esophagitis K21.9 Esophagitis presence: without esophagitis Impaired fasting glucose R73.01 Generalized anxiety disorder F41.1
[2024-02-06 15:36] VITALS: BP 104/72; PULSE 96; O2SAT 99; BMI 33.2
[2024-02-06 15:59] VITALS: BP 122/80
== END 2024-02-06 16:11 | disposition home or self-care (01) ==
PROVIDERS: PCP Internal Medicine; Visit Provider Internal Medicine
DX: C61 Malignant neoplasm of prostate (principal); I10 Essential (primary) hypertension; E78.00 Pure hypercholesterolemia, unspecified; K21.9 Gastro-esophageal reflux disease without esophagitis; R73.01 Impaired fasting glucose; F41.1 Generalized anxiety disorder
CPT/HCPCS: 99214

== ENCOUNTER 2024-02-18 07:36 | Day surgery (SDC) | payer BC, SELFPAY ==
[2024-02-18 07:42] VITALS: BMI 32.6
[2024-02-18 07:51] VITALS: BP 135/81; PULSE 66; RESP 15; TEMP 36.6; O2SAT 95
[2024-02-18] MEDS: Lactated Ringers 1,000 ML 100 ML IVCONT (07:58)
--- NOTE | 2024-02-18 08:30 | P.CONAN_ITS ---
Documented by User: Mary Maier NP 02/16/24 13:32 HPI - Anesthesia Eval Consult details Narrative: 53yo M for Upper Endoscopy s/p same 09/2023 with [facility] Active Problems Active Problems: All Active Problems Glaucoma (Acute) Esophageal dysmotility (Acute) Hiatal hernia (Acute) Erosive esophagitis (Acute) COVID-19 virus infection (Acute) Dysphagia (Acute) Prostatic adenocarcinoma (Acute) Cough (Acute) Tinnitus (Acute) Cervical spinal stenosis (Acute) Annual physical exam (Acute) Left shoulder pain (Acute) Back pain (Acute) Generalized anxiety disorder (Acute) Annual physical exam (Acute) Renal insufficiency (Acute) Hyperbilirubinemia (Acute) Colon cancer screening (Acute) Impaired fasting glucose (Acute) Anxiety and depression (Acute) GERD (gastroesophageal reflux disease) (Acute) Obesity (BMI 30-39.9) (Acute) Vitamin D deficiency (Acute) Obstructive sleep apnea (Acute) Hypercholesterolemia (Acute) Hypertension (Acute) Alcohol abuse (Acute) Past Medical History Medical History Prostate cancer PSA elevation Anxiety and depression Fatty liver GERD (gastroesophageal reflux disease) Obesity (BMI 30-39.9) Vitamin D deficiency Obstructive sleep apnea Hypercholesterolemia Hypertension Impaired fasting glucose Alcohol abuse Family History Family History Father Alcoholism Breast cancer Mother Hypertension Hypercholesteremia Brother Hypercholesteremia Gout Maternal Grandfather Throat cancer Maternal Grandmother Hypertension Maternal Uncle Throat cancer Colon cancer Family history of problems with anesthesia: No Surgical History Surgical History History of prostate biopsy History of esophagogastroduodenoscopy (EGD) H/O nasal septoplasty History of Problems with Anesthesia: No Social History Social History (Updated 02/06/24 @ 16:03 by Jamaica Kent MD) Household Members Other:: - 1 son Housing: House Alcohol intake: former Comment: 2019 last drink Patient Tobacco Use Status: Former Tobacco user Tobacco use type: Cigar Years Smoked: quit 2020 e-Cigarette/Vaping Use: Never Used Second Hand Smoke Exposure: No Use of substances other than those prescribed or required for medical reasons: No Are you DNR?: No Advance Directives: No Advance Directives Information Provided: Yes service: Yes Current occupational status: employed Current occupation: [employer] Cognitive needs: No Hearing needs: No Vision needs: Yes Meds Allergies Allergy/AdvReac Type Severity Reaction Status Date / Time lisinopril [LISINOPRIL] Allergy Unknown cough Verified 02/18/24 07:53 Exam Pertinent Lab Results Pertinent Lab Results: Laboratory Tests 11/26/23 08:50 WBC 9.2 Hgb 15.1 Hct 43.5 Plt Count 219 Sodium 141 Potassium 4.1 Chloride 104 Carbon Dioxide 28 BUN 15 Creatinine 1.06 Assessment and Plan Assessment Anesthesia Assessment: Chart Reviewed Final Anesthetic Review Family History of Problems with Anesthesia: No History of Problems with Anesthesia: No Documented by User: Juju Cevallos DO 02/18/24 08:35 PMFSH Past Medical History Medical History Prostate cancer PSA elevation Anxiety and depression Fatty liver GERD (gastroesophageal reflux disease) Obesity (BMI 30-39.9) Vitamin D deficiency Obstructive sleep apnea Hypercholesterolemia Hypertension Impaired fasting glucose Alcohol abuse Family History Family History Father Alcoholism Breast cancer Mother Hypertension Hypercholesteremia Brother Hypercholesteremia Gout Maternal Grandfather Throat cancer Maternal Grandmother Hypertension Maternal Uncle Throat cancer Colon cancer Family history of problems with anesthesia: No Surgical History Surgical History History of prostate biopsy History of esophagogastroduodenoscopy (EGD) H/O nasal septoplasty History of Problems with Anesthesia: No Social History Social History (Updated 02/06/24 @ 16:03 by Jamaica Kent MD) Household Members Other:: - 1 son Housing: House Alcohol intake: former Comment: 2019 last drink Patient Tobacco Use Status: Former Tobacco user Tobacco use type: Cigar Years Smoked: quit 2020 e-Cigarette/Vaping Use: Never Used Second Hand Smoke Exposure: No Use of substances other than those prescribed or required for medical reasons: No Are you DNR?: No Advance Directives: No Advance Directives Information Provided: Yes service: Yes Current occupational status: employed Current occupation: [employer] Cognitive needs: No Hearing needs: No Vision needs: Yes Meds Allergies Allergy/AdvReac Type Severity Reaction Status Date / Time lisinopril [LISINOPRIL] Allergy Unknown cough Verified 02/18/24 07:53 Exam Exam Date and Time: February 18, 2024 0830 Height,Weight and Vital Signs: Height 5 ft 9 in Weight 100.244 kg Vital Signs Temperature 97.9 F 02/18/24 07:51 Pulse Rate 66 02/18/24 07:51 Respiratory Rate 15 02/18/24 07:51 Blood Pressure 135/81 02/18/24 07:51 Pulse Oximetry 95 02/18/24 07:51 Oxygen Delivery Method Room Air 02/18/24 07:51 Temperature 97.9 F 02/18/24 07:51 Pulse Rate 66 02/18/24 07:51 Respiratory Rate 15 02/18/24 07:51 Blood Pressure 135/81 02/18/24 07:51 Pulse Oximetry 95 02/18/24 07:51 Oxygen Delivery Method Room Air 02/18/24 07:51 Airway Mallampati Class: II TM Dist: >3cm Neck ROM: Full Loose/Missing/Broken Teeth: No (patient denies any loose or chipped teeth) Heart: S1S2 Lungs: CTAB Assessment and Plan Assessment Anesthesia Assessment: Anesthesia Plan Discussed and Chart Reviewed Final Anesthetic Review Family History of Problems with Anesthesia: No History of Problems with Anesthesia: No NPO: Yes ASA Class: II Final Preanesthetic Review: No Changes in Pt Med Stat, Meds/Allgs Chart Reviewed, Consent Obtained/Reviewed and Anes Risks/Benef Reviewed Patient Risk: Low Procedure Risk: Low Anesthetic Plan Anesthetic Plan: MAC: and Agree w/ Assess. and Plan Disposition: Standard PACU
--- NOTE | 2024-02-18 08:31 | P.HPSUR_ITS ---
Pre-Procedural Eval Section A - 24 Hr Update-Section A only Date of Service: 02/18/24 Section B - Complete if H&P > 30 days Chief Complaint: Diaphragmatic hernia,Ulcer of esophagus without bl Relevant Family History (Specify if Yes): No Relevant Social History: None Present Medications: see Short Stay Collaborative assessment Medical History: Significant History (Prostate cancer PSA elevation Anxiety and depression Fatty liver GERD (gastroesophageal reflux disease) Obesity (BMI 30- 39.9) Vitamin D deficiency Obstructive sleep apnea Hypercholesterolemia Hypertension Impaired fasting glucose Alcohol abuse) History of Previous Operations: Relevant previous surgery/procedure and date(s) (story of prostate biopsy History of esophagogastroduodenoscopy (EGD) H/O nasal septoplasty) Allergies: Allergies Allergy/AdvReac Type Severity Reaction Status Date / Time lisinopril [LISINOPRIL] Allergy Unknown cough Verified 02/18/24 07:53 Review of Systems Sugical H&P ROS: Negative: Constitution, Cardiovascular, Respiratory, Neurological, Psychiatric, Hem-Onc, Allergic/Immunologic, Gastrointestinal, Genitourinary, Musculoskeletal, Integumentary, Endocrine and Eyes/Ears/Nose/Throat Exam Surgical H&P Exam: Normal: HEENT, Normal: Heart, Normal: Lungs, Normal: Extremities, Normal: Abdomen, Normal: Skin and Normal: Neurological Plan Diagnosis/Plan: Unchanged I have reviewed the history and physical and performed a pertinent physical examination on my patient. No changes have occurred unless specified. Time Spent With Patient Time: Total time managing care of this patient today ____ minutes.
--- NOTE | 2024-02-18 09:02 | W.PM.OPN ---
Operative Note Operative Note Date of Service: 02/18/24 Narrative: Procedure Description: EGD Indication: hx of esophagitis Anesthesia: MAC FLEXIBLE TRANSORAL UPPER GASTROINTESTINAL ENDOSCOPY UPPER ENDOSCOPY Consent: Indications for the procedure and potential complications of bleeding, perforation, reaction to medications and missed diagnosis were discussed with the patient and informed consent was obtained. Instrument: Olympus GIF H 190 J mid size upper endoscope Monitoring: Vital signs and clinical assessment, continuous EKG monitoring, Pulse oximetry, Carbon Dioxide monitoring and blood pressure monitoring were done throughout the procedure. Procedure: The patient was placed in the left lateral decubitis position and pre-procedure medications were administered and a bite block was placed. The endoscope was inserted into the mouth and advanced under direct vision to the third part of duodenum. A careful inspection was made as the upper endoscope was withdrawn including a retroflexed examination of the proximal stomach; Findings and interventions are described below. Findings: Larynx:normal Esophagus: GE junction at 38 cm, diaphragm hiatus at 38 cm, with one single small linear erosion noted, possible short segment barretts, bx taken Stomach: Normal mucosa. Grade 2 flap valve on retroflexed examination of the cardia. Duodenum: Normal bulb and descending duodenum, Intervention: Biopsies as noted above Impression/Findings: erosive esophagitis--mild, better than last time possible barretts PLAN: GERD precautions cont with PPi
[2024-02-18 09:06] VITALS: BP 108/71; PULSE 73; RESP 16; TEMP 36.3; O2SAT 92
[2024-02-18 09:21] VITALS: BP 117/75; PULSE 64; RESP 17; TEMP 36.6; O2SAT 95
== END 2024-02-18 10:10 | disposition home or self-care (01) ==
PROVIDERS: PCP Internal Medicine; Visit Provider Internal Medicine Gastroenterology
PROC: 0DJ08ZZ Inspection of Upper Intestinal Tract, Via Natural or Artificial Opening Endoscopic (ICD-10-PCS; CPT 43235; principal; 2024-02-18 08:30)
DX: K22.10 Ulcer of esophagus without bleeding (principal); I10 Essential (primary) hypertension; Z79.899 Other long term (current) drug therapy; Z88.8 Allergy status to other drugs, medicaments and biological substances
CPT/HCPCS: 43239; 88305; 88313; J2704

== ENCOUNTER → 2024-02-18 07:36 | Outpatient (BNV) | payer BC, SELFPAY | PROVIDERS: PCP Internal Medicine; Visit Provider Internal Medicine Gastroenterology | DX: K20.90 Esophagitis, unspecified without bleeding (principal) | CPT/HCPCS: 43239 ==

== ENCOUNTER 2024-04-05 07:16 | Outpatient (REF) | payer BC, SELFPAY | END 2024-04-05 07:17 | disposition home or self-care (01) | LOC: HO.LAB 07:16 | PROVIDERS: PCP Internal Medicine; Visit Provider Urology | DX: C61 Malignant neoplasm of prostate (principal); Z12.5 Encounter for screening for malignant neoplasm of prostate | CPT/HCPCS: 36415; 84153; 84154 ==

== ENCOUNTER 2024-04-16 08:37 | Outpatient (AMB) | payer BC, SELFPAY ==
--- NOTE | 2024-04-16 10:01 | MHC.OFFVIS ---
Intake Visit Reasons: 3m/PSA(pending) Intake Note: Patient is present for PSA tele appt Urology Med: Finasteride Allergies lisinopril [LISINOPRIL] Allergy (Unknown, Verified 04/09/24 13:42) cough HPI Comments Details: Won is a pleasant male. He is a patient of Dr. Kent. 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 01/06 PSA 6, 04/07 5.0 Genetics indicate active surveillance group Treatment options including robotic prostatectomy discussed previously 09/06 5.4 Continue Q 4 month surveillance. Understands rebiopsy will be required in future Prostate cancer - 04/0623 Grade Group [address] Parson for rising PSA 03/07 PSA at diagnosis 5.7, free% 15 No family history TRUS - 45gm, T1c Jose score: 3+3=6 - Grade group: 1 Number cores positive: 4 Total number of cores: 12 - LBL 10%, LML 5%, RML 10%, KARLA 5% Periprostatic fat inv.: Not identified Seminal vesicle inv.: Not identified Perineural inv.: Not identified LVI:Not identified Staging - 05/07 Genetics active surveillance - Prolaris - 05/07 MRI - 10mm lesion right anterior mid transition zone PiRADS 3, 6 mm left posterolateral mid peripheral zone PI-RADS 4 PFSH Medical History Prostate cancer PSA elevation Anxiety and depression Fatty liver GERD (gastroesophageal reflux disease) Obesity (BMI 30-39.9) Vitamin D deficiency Obstructive sleep apnea Hypercholesterolemia Hypertension Impaired fasting glucose Alcohol abuse Surgical History (Updated 03/22/24 @ 09:59 by Poly Wyatt) History of prostate biopsy History of esophagogastroduodenoscopy (EGD) H/O nasal septoplasty Family History Father Alcoholism Breast cancer Mother Hypertension Hypercholesteremia Brother Hypercholesteremia Gout Maternal Grandfather Throat cancer Maternal Grandmother Hypertension Maternal Uncle Throat cancer Colon cancer Social History (Updated 02/06/24 @ 16:03 by Jamaica Kent MD) Household Members Other:: - 1 son Housing: House Alcohol intake: former Comment: 2019 last drink Patient Tobacco Use Status: Former Tobacco user Tobacco use type: Cigar Years Smoked: quit 2020 e-Cigarette/Vaping Use: Never Used Second Hand Smoke Exposure: No service: Yes Current occupational status: employed Current occupation: [employer] Cognitive needs: No Hearing needs: No Vision needs: Yes Review of Systems Const All systems reviewed & are unremarkable except as noted in HPI and below Reports no additional complaints Resp Reports no additional complaints GI Reports no additional complaints Reports as per HPI Musc Reports no additional complaints Physical Exam Telemedicine evaluation Appropriate responses Regular breathing rate and rhythm HEENT Head: Yes normal to inspection Ears: hearing grossly normal bilaterally Eyes General: appearance normal, both eyes and all related structures Neck Neck: Yes normal visual inspection Chest Chest palpation & inspection: normal inspection of the chest Resp Effort & Inspection: normal respiratory effort and able to speak in complete sentences Telehealth Telehealth Location of provider rendering services: practice address Location of patient: address on file Patient Identification confirmed using: Name, : Yes Telehealth method: video Patient verbally consented to treatment: Yes Patient verbally consented to billing insurance company: Yes Patient informed of any privacy concerns related to visit: Yes Assessment & Plan Assessment & Plan (1) Prostatic adenocarcinoma: Comment: 03/07 - Grade Group 1 Prolaris Active Surveillance Code(s): C61 - Malignant neoplasm of prostate Category: Medical Plan Four month follow-up PSA office Orders: Orders PSA,Total (Free>4and<10) 4 Months C61 - Malignant neoplasm of prostate Medications: Refilled finasteride 5 mg PO DAILY 90 days 90 tabs 1RF C61 - Malignant neoplasm of prostate, N13.8 - Other obstructive and reflux uropathy, N40.1 - Benign prostatic hyperplasia with lower urinary tract symptoms, R33.9 - Retention of urine, unspecified Patient Instructions: Imaging studies, laboratory and physical exam results were discussed and reviewed in detail. No major barriers to patient understanding were identified. An opportunity to ask questions regarding the treatment plan was provided. All questions were answered. The patient expressed understanding and agreement with the above treatment plan. The patient is aware they should contact our office by phone for worsening of their current condition or the appearance of new urologic symptoms. Compliance is encouraged with any medications and followup testing that is ordered. It is a privilege to participate in the urologic care of your patient. If you have any questions or concerns regarding treatment for the above conditions, or other urologic issues, please do not hesitate to contact me. The office telephone contact is [phone]. This note is constructed using voice recognition software. While every effort has been made to ensure accuracy marketing business analyst errors may have been included. Yours sincerely, Dr Mikal Parson MD, [facility] - Urology Providers of Expert, Compassionate Care for the Genitourinary System Coding Level of Care Code Tele Est Pt Level 3 (75252) Diagnoses Prostatic adenocarcinoma C61
== END 2024-04-16 11:00 | disposition home or self-care (01) ==
PROVIDERS: PCP Internal Medicine; Visit Provider Urology
DX: C61 Malignant neoplasm of prostate (principal)
CPT/HCPCS: 99213

== ENCOUNTER → 2024-04-16 08:37 | Outpatient (BNVA) | payer BC, SELFPAY | PROVIDERS: PCP Internal Medicine; Visit Provider Urology ==

== ENCOUNTER 2024-07-01 14:59 | Outpatient (AMB) | payer BC, SELFPAY ==
--- NOTE | 2024-07-01 15:10 | MHC.PC.OV ---
Vital Signs 07/01/24 15:12 Height 5 ft 9 in Weight 224 lb 2 oz BMI 33.1 BP 112/78 Blood Pressure Location Lt brachial Position Sitting Pulse 68 Pulse Source Pulse Oximeter Pulse Oximetry (%) 96 Oxygen Delivery Method Room Air Intake Visit Reasons: ANNUAL Intake Note: Patient is here today for a physical. 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 per policy Accompanied by: Self / Same As Patient Allergies lisinopril [LISINOPRIL] Allergy (Unknown, Verified 07/01/24 15:12) cough Medication List - Last Reconciled 07/01/24 by Jamaica Kent MD amlodipine 10 mg PO DAILY atorvastatin 20 mg PO DAILY 90 days finasteride 5 mg PO DAILY 90 days losartan 50 mg PO DAILY multivitamin (One-A-Day Essential tablet) 1 tab PO DAILY omeprazole 40 mg (2 x 20 mg) PO DAILY sertraline 25 mg PO DAILY Tobacco use date assessed: 07/01/24 Dental Screening Dental Screen Date: 11/03/23 HPI ANNUAL HPI Details 53-year-old obese male with prostate cancer hypertension hypercholesterolemia GERD impaired glucose tolerance and generalized anxiety disorder last seen in 02/02/2024. Patient is following up with Urology seen in April 2024 presently on finasteride December 2023 PSA is 6 04/03/2024 is 5 genetics indicate active surveillance group. Patient had an EGD done with Dr Tomasa Hairston 02/18/2024 showing moderate chronic inactive inflammation/active esophagitis eosinophilic PFSH Medical History Prostate cancer PSA elevation Anxiety and depression Fatty liver GERD (gastroesophageal reflux disease) Obesity (BMI 30-39.9) Vitamin D deficiency Obstructive sleep apnea Hypercholesterolemia Hypertension Impaired fasting glucose Alcohol abuse Surgical History History of prostate biopsy History of esophagogastroduodenoscopy (EGD) H/O nasal septoplasty Family History Father Alcoholism Breast cancer Mother Hypertension Hypercholesteremia Brother Hypercholesteremia Gout Maternal Grandfather Throat cancer Maternal Grandmother Hypertension Maternal Uncle Throat cancer Colon cancer Social History Household Members Other:: - 1 son Housing: House Alcohol intake: former Comment: 2020 last drink Patient Tobacco Use Status: Former Tobacco user Tobacco use type: Cigar Years Smoked: quit 2020 e-Cigarette/Vaping Use: Never Used Second Hand Smoke Exposure: No service: Yes Current occupational status: employed Current occupation: [employer] Cognitive needs: No Hearing needs: No Vision needs: Yes Questionnaire PHQ-9 Over the last 2 weeks, how often have you been bothered by any of the following problems? 1. Little interest or pleasure in doing things: not at all 2. Feeling down, depressed, or hopeless: not at all 3. Trouble falling or staying asleep, or sleeping too much: not at all 4. Feeling tired or having little energy: not at all 5. Poor appetite or overeating: not at all 6. Feeling bad about yourself - or that you are a failure or have let yourself or your family down: not at all 7. Trouble concentrating on things, such as reading the newspaper or watching television: not at all 8. Moving or speaking so slowly that other people could have noticed. Or the opposite - being so fidgety or restless that you have been moving around a lot more than usual: not at all 9. Thoughts that you would be better off or of hurting yourself in some way: not at all Total score: 0 Depression Screening Interpretation: Negative Depression Screening Done: Yes Source: Developed by Drs. Jass Arias, Nicole Holland, Leobardo Baca and colleagues, with an educational jody from [employer]. Thrive Questionnaire Date Thrive assessed: 07/01/24 I am a: Patient What is your living situation today?: I have a steady place to live Within the past 12 months, did the food you bought not last and you didn't have the money to get more?: Never true Within the past 12 months, did you worry whether your food would run out before you got money to buy more?: Never true Do you have trouble paying for medicines?: No Do you have trouble getting transportation to medical appointments?: No Do you have trouble paying your heating and electricity bill?: No Do you have trouble taking care of your child, family member or friend?: No Do you have trouble with day-to-day activities such as bathing, preparing meals, shopping, managing finances, etc.?: No Are you currently unemployed and looking for a job?: No Are you interested in more education?: No Please select the resources that you would like help with: None Currently or been in a relationship where the following occur: No concerns reported THRIVE Score: 0 AUDIT C Alcohol Use Questionnaire (AUDIT-C) 1. How often do you have a drink containing alcohol?: Never Total Score: 0 DEYSI-7 AMB Questionnaire DEYSI-7 Date DEYSI - 7 assessed: 07/01/24 Feeling nervous, anxious, or on edge: 0 = Not at all Not being able to stop or control worryin = Not at all Worrying too much about different things: 0 = Not at all Trouble relaxin = Not at all Being so restless that it is hard to sit still: 0 = Not at all Becoming easily annoyed or irritable: 0 = Not at all Feeling afraid as if something awful might happen: 0 = Not at all Total DEYSI-7 score (0-4 normal; 5-9 mild; 10-14 moderate; 15-21 severe): 0 Source: Developed by Drs. Jass Arias, Nicole Holland, Leobardo Baca and colleagues, with an educational jody from [employer]. Review of Systems Const Denies poor appetite and Denies weakness Eyes Denies no additional complaints ENT Reports Normal hearing present, Denies dizziness, Denies nasal congestion, Denies tinnitus and Denies sore throat Card Denies chest pain, Denies syncope, Denies rapid heart rate and Denies dyspnea Resp Denies cough and Denies dyspnea GI Denies change in stool character, Reports constipation, Denies diarrhea, Denies nausea and Denies vomiting Denies dysuria and Denies urinary frequency Neuro Reports Normal hearing present, Denies confusion, Denies dizziness, Denies syncope and Denies weakness Psych Denies confusion Physical exam (Primary Care) Vital Signs: Last Vital Signs Pulse 68 07/01/24 15:12 BP 112/78 07/01/24 15:12 Pulse Ox 96 07/01/24 15:12 Oxygen Delivery Method Room Air 07/01/24 15:12 BMI result Body Mass Index 33.1 Tobacco/Smoking Status: Tobacco use Status Tobacco use date assessed 07/01/24 07/01/24 15:16 Patient Tobacco Use Status Former Tobacco user 07/01/24 15:16 Tobacco use type Cigar 07/01/24 15:16 e-Cigarette/Vaping Use Never Used 07/01/24 15:16 PHQ-9: PHQ-9 Score PHQ-9: Total score 0 07/01/24 15:39 Depression Screening Interpretation: Negative Thrive Assessment: Date of Thrive Assessment Date Thrive assessed 07/01/24 07/01/24 15:16 Currently or been in a relationship where the following occur: No concerns reported Const General: No confusion Orientation/consciousness: No confusion HENMT Head: Yes normocephalic Ears: external ears normal and TM's normal bilaterally Face and sinus: Yes normal facial exam Mouth: moist mucous membranes Throat: Yes tonsils normal Eyes Conjunctivae: conjunctivae normal Pupils: Equal, round and reactive pupils present and Pupil accommodation reflex normal Direct Ophthalmoscopy: normal light reflex Neck Neck: No lymphadenopathy Thyroid: Thyroid normal Chest Chest palpation & inspection: normal inspection of the chest Resp Effort & Inspection: normal respiratory effort and no audible wheezes Auscultation: clear to auscultation bilaterally, no crackles, no wheezes and lung sounds not diminished Cardio Rate: regular rate Rhythm: regular rhythm Peripheral pulses: radial pulses present and dorsalis pedis present GI Other: declined rectal Palpation (GI): no masses Auscultation: normal bowel sounds and normoactive bowel sounds Rectal Exam - Male: Yes deferred Other: declined Skin General skin exam: no rashes or lesions noted Rashes: no rashes Neuro General: No confusion Cranial nerves: Yes Equal, round and reactive pupils present and Yes Normal hearing present Cognition (Neuro): normal cognition Gait exam (Neuro): Normal gait present Motor exam (neuro): 5/5 motor strength present throughout Deep tendon reflexes (DTR's): Right brachioradialis reflex intensity grade: 2+, Left brachioradialis reflex intensity grade: 2+, Right patellar reflex intensity grade: 2+ and Left patellar reflex intensity grade: 2+ Extrem General: No edema Office Procedures Flu Questionnaire Does the patient have a severe egg allergy?: No Does the patient have severe life threatening allergies?: No Does the patient have a fever or illness today?: No Has the patient ever had Guillain-[place] Syndrome?: No Has the patient ever had any past reaction to a flu shot?: No Immunizations Fluarix Triv [id number] (PF) 45 mcg (15 mcg x 3)/0.5 mL IM syringe Performing Provider: Jamaica Kent MD Performing Location: [facility] Administered by: LAM Bella on 07/01/24 15:40 Dose Route Admin Location Dispensed Lot Number Expiration Date NDC Clip On Sunglasses Inspector 0.5 mL IM Left Deltoid 0.5 mL [id number] 03/14/25 [id number] [email or web address] VIS Given Date VIS Provided VIS Publication Date 07/01/24 Single Vaccine 21 Eligibility Eligibility Date Funding Source Not [facility] Eligible 07/01/24 Private Coding Level of Care Code Est Pt Prev Care 40-64y(70406) Diagnoses Annual physical exam Z00.00 Prostatic adenocarcinoma C61 Erosive esophagitis K22.10 Obesity (BMI 30-39.9) E66.9 Essential hypertension I10 Hypertension type: essential hypertension Hypercholesterolemia E78.00 Gastroesophageal reflux disease without esophagitis K21.9 Esophagitis presence: without esophagitis Impaired fasting glucose R73.01 Colon cancer screening Z12.11 Generalized anxiety disorder F41.1 Assessment & Plan Assessment & Plan (1) Annual physical exam: Code(s): Z00.00 - Encounter for general adult medical examination without abnormal findings Category: Medical Plan: Patient is advised to eat healthy, keep well hydrated, keep active and have adequate sleep. (2) Prostatic adenocarcinoma: Comment: 03/07 - Grade Group 1 Prolaris Active Surveillance Code(s): C61 - Malignant neoplasm of prostate Category: Medical Plan: Continue to follow-up with urology on surveillance (3) Erosive esophagitis: Comment: Very pleasant, seemingly depressed 53-year-old male with abnormal findings on barium study- follows up after recent EGD-with biopsies He does chronic cough, no dysphagia or odynophagia September 2023, February 2024 Code(s): K22.10 - Ulcer of esophagus without bleeding Category: Medical Plan: On omeprazole presently and recent EGD done (4) Obesity (BMI 30-39.9): Code(s): E66.9 - Obesity, unspecified Category: Medical Plan: Diet and exercise (5) Hypertension: Code(s): I10 - Essential (primary) hypertension Category: Medical Qualifiers: Hypertension type: essential hypertension Qualified Code(s): I10 - Essential (primary) hypertension Plan: Continue with blood pressure medication. Decrease salt intake and exercise patient takes losartan 50 mg once a day and amlodipine 10 mg once a day (6) Hypercholesterolemia: Code(s): E78.00 - Pure hypercholesterolemia, unspecified Category: Medical Plan: Avoid fried foods, chicken skin, eggs, butter margarine, pastries and meat. Be it pork or beef they have a lot of cholesterol LDL goal of less than 130 and triglyceride of less than 150 on atorvastatin 20 mg once a day (7) GERD (gastroesophageal reflux disease): Comment: some improvement Code(s): K21.9 - Gastro-esophageal reflux disease without esophagitis Category: Medical Qualifiers: Esophagitis presence: without esophagitis Qualified Code(s): K21.9 - Gastro-esophageal reflux disease without esophagitis Plan: Avoid the foods that causes that usually spicy foods, tomato products, juices, coffee, soda and foods that your sensitive to. After eating do not lie down, allow 3-4 hours before in lie down. And keep the head of bed above 30 degrees to avoid the acid from going up. (8) Impaired fasting glucose: Code(s): R73.01 - Impaired fasting glucose Category: Medical Plan: Decrease the amount of carbohydrate intake, pasta, bread, rice and potatoes are all sugar and that is aside from all the sweet stuff, remember that fruits are good but they are Sweet also. (9) Colon cancer screening: Comment: colonoscopy Code(s): Z12.11 - Encounter for screening for malignant neoplasm of colon Category: Medical Plan: Patient is reminded about colon cancer screening. (10) Generalized anxiety disorder: Comment: decline counselling 10/2021 Code(s): F41.1 - Generalized anxiety disorder Category: Medical Plan: Continue with present medication Orders: Orders Influenza [id number] Immunization Today Z23 - Encounter for immunization Free T4 (Free Thyroxine) 2 Months E78.00 - Pure hypercholesterolemia, unspecified Vitamin B12 and Folate 2 Months E78.00 - Pure hypercholesterolemia, unspecified Hemoglobin A1c 2 Months R73.01 - Impaired fasting glucose Complete Blood Count Auto Diff 2 Months E78.00 - Pure hypercholesterolemia, unspecified Comprehensive Met. Panel 2 Months E78.00 - Pure hypercholesterolemia, unspecified Lipid Panel 2 Months E78.00 - Pure hypercholesterolemia, unspecified Thyroid Stimulating Hormone 2 Months E78.00 - Pure hypercholesterolemia, unspecified
[2024-07-01 15:12] VITALS: BP 112/78; PULSE 68; O2SAT 96; BMI 33.1
== END 2024-07-01 15:59 | disposition home or self-care (01) ==
PROVIDERS: PCP Internal Medicine; Visit Provider Internal Medicine
DX: Z00.00 Encounter for general adult medical examination without abnormal findings (principal); C61 Malignant neoplasm of prostate; E66.811 Obesity, class 1; Z68.33 Body mass index [BMI] 33.0-33.9, adult; K22.10 Ulcer of esophagus without bleeding; I10 Essential (primary) hypertension; E78.00 Pure hypercholesterolemia, unspecified; K21.9 Gastro-esophageal reflux disease without esophagitis; R73.01 Impaired fasting glucose; Z12.11 Encounter for screening for malignant neoplasm of colon; F41.1 Generalized anxiety disorder

== ENCOUNTER → 2024-07-01 14:59 | Outpatient (BNVA) | payer BC, SELFPAY | PROVIDERS: PCP Internal Medicine; Visit Provider Internal Medicine | DX: Z00.00 Encounter for general adult medical examination without abnormal findings (principal); C61 Malignant neoplasm of prostate; K22.10 Ulcer of esophagus without bleeding; E66.9 Obesity, unspecified; I10 Essential (primary) hypertension; E78.00 Pure hypercholesterolemia, unspecified; K21.9 Gastro-esophageal reflux disease without esophagitis; R73.01 Impaired fasting glucose; F41.1 Generalized anxiety disorder; Z79.899 Other long term (current) drug therapy; Z23 Encounter for immunization | CPT/HCPCS: 90471; 90656; 96127 ==

== ENCOUNTER 2024-08-10 08:05 | Outpatient (REF) | payer BC, SELFPAY ==
[2024-08-10 08:39] LABS: MANUAL DIFF FLAG NO
[2024-08-10 09:01] LABS: Basophils Percent Auto 0.3 % (0-2); Eosinophils Absolute Auto 0.2 X10*3/uL (0.0-0.4); Eosinophils Percent Auto 2.3 % (0-4); Hematocrit 44.4 % (42.0-52.0); Hemoglobin 15.2 g/dl (14.0-18.0); Imm Gran Abs Auto 0.03 X10*3/uL (0.00-0.03); Imm Gran Pct Auto 0.4 % (0.0-0.4); Lymphocytes Absolute Auto 1.5 X10*3/uL (1.2-4.9); Lymphocytes Percent Auto 20.9 % (20-40); Mean Corpuscular HGB Conc 34.2 g/dl (31.0-36.0); Mean Corpuscular Hemoglobin 29.3 pg (27.0-33.0); Mean Corpuscular Volume 85.5 fL (80.0-98.0); Mean Platelet Volume 12.1 fL (9.4-12.4); Monocytes Absolute Auto 0.6 X10*3/uL (0.1-1.2); Monocytes Percent Auto 8.4 % (2-11); Neutrophils Absolute Auto 4.7 x10*3/uL (2.0-8.3); Neutrophils Percent Auto 67.7 % (45-73); Platelet Count 212 X10*3/uL (160-400); Red Blood Count 5.19 X10*6/uL (4.60-5.80); Red Cell Distribution Width 12.8 % (11.0-16.0)
[2024-08-10 09:08] LABS: Estimated Average Glucose 117 mg/dL; Hemoglobin A1C 148.1449 umol/L; Hemoglobin A1c % 5.7 % (<6.0); Total Hemoglobin (HGBA1C) 3812.6295 umol/L
[2024-08-10 09:41] LABS: Alanine Aminotransferase 35 U/L (0-40); Albumin Level 4.9 g/dL (3.5-5.0); Alkaline Phosphatase 78 U/L (39-117); Anion Gap 14 (12-20); Bilirubin Total 1.3 mg/dL (0.0-1.0); Blood Urea Nitrogen 20 mg/dL (9-16); Calcium 10.2 mg/dL (8.4-10.2); Carbon Dioxide 26 mmol/L (22-29); Chloride 105 mmol/L (96-108); Cholesterol 189 mg/dL (<200); Estimated Glomerular Filt Rate 60; Glucose Random 109 mg/dL (60-115); HDL Cholesterol 39 mg/dL (>40); LDL Cholesterol Calculated 111 mg/dL (<100); Potassium 4.6 mmol/L (3.3-5.1); Sodium 140 mmol/L (135-145); Total Protein 7.7 g/dL (6.5-8.0); Triglycerides 196 mg/dL (<150)
[2024-08-10 09:55] LABS: PSA,Total (Free>4and<10) 6.04 ng/mL (0.00-4.00)
[2024-08-10 10:03] LABS: Folate 16.3 ng/mL (> or = 4.0); Vitamin B12 566 pg/mL (200-900)
[2024-08-10 10:08] LABS: Thyroid Stimulating Hormone 1.46 uIU/mL (0.32-4.0)
[2024-08-10 11:56] LABS: Aspartate Amino Transferase 28 U/L (5-37)
[2024-08-11 11:09] LABS: Free Prostate Spec Ag 0.6 ng/mL; Percent Free Prostate Spec Ag 9 % (calc) (>25); Prostate Specific Ag Total 6.4 ng/mL (< OR = 4.0)
== END 2024-08-10 08:06 | disposition home or self-care (01) ==
LOC: HO.LAB 08:05
PROVIDERS: Absent Provider Urology; PCP Internal Medicine; Visit Provider Internal Medicine
DX: C61 Malignant neoplasm of prostate (principal); Z12.5 Encounter for screening for malignant neoplasm of prostate; R73.01 Impaired fasting glucose; E78.00 Pure hypercholesterolemia, unspecified
CPT/HCPCS: 36415; 80053; 80061; 82607; 82746; 83036; 84153; 84154; 84439; 84443; 85025

== ENCOUNTER 2024-08-17 15:25 | Outpatient (AMB) | payer BC, SELFPAY ==
--- NOTE | 2024-08-17 15:25 | MHC.OFFVIS ---
Intake Visit Reasons: 4M PSA(set) Intake Note: Patient is present for 4M PSA Urology Medication:FINASTERIDE Antibiotic Allergy:NONE Blood Thinner:NONE Clothing Man Required: No Allergies lisinopril [LISINOPRIL] Allergy (Unknown, Verified 08/17/24 15:26) cough HPI Comments Details: Won is a pleasant male. He is a patient of Dr. Kent. 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 01/06 PSA 6, 04/07 5.0, 08/08 6.4 9% Genetics indicate active surveillance group Treatment options including robotic prostatectomy discussed previously 09/06 5.4 Continue Q 4 month surveillance Plan repeat prostate MRI in 4 months with targeted biopsy plan Prostate cancer - 04/0623 Grade Group [address] Parson for rising PSA 03/07 PSA at diagnosis 5.7, free% 15 No family history TRUS - 45gm, T1c Jose score: 3+3=6 - Grade group: 1 Number cores positive: 4 Total number of cores: 12 - LBL 10%, LML 5%, RML 10%, KARLA 5% Periprostatic fat inv.: Not identified Seminal vesicle inv.: Not identified Perineural inv.: Not identified LVI:Not identified Staging - 05/07 Genetics active surveillance - Prolaris - 05/07 MRI - 10mm lesion right anterior mid transition zone PiRADS 3, 6 mm left posterolateral mid peripheral zone PI-RADS 4 PFSH Medical History Prostate cancer PSA elevation Anxiety and depression Fatty liver GERD (gastroesophageal reflux disease) Obesity (BMI 30-39.9) Vitamin D deficiency Obstructive sleep apnea Hypercholesterolemia Hypertension Impaired fasting glucose Alcohol abuse Surgical History History of prostate biopsy History of esophagogastroduodenoscopy (EGD) H/O nasal septoplasty Family History Father Alcoholism Breast cancer Mother Hypertension Hypercholesteremia Brother Hypercholesteremia Gout Maternal Grandfather Throat cancer Maternal Grandmother Hypertension Maternal Uncle Throat cancer Colon cancer Social History (Reviewed 07/01/24 @ 15:10 by MARIANNE Mares Household Members Other:: - 1 son Housing: House Alcohol intake: former Comment: 2019 last drink Patient Tobacco Use Status: Former Tobacco user Tobacco use type: Cigar Years Smoked: quit 2020 e-Cigarette/Vaping Use: Never Used Second Hand Smoke Exposure: No service: Yes Current occupational status: employed Current occupation: [employer] Cognitive needs: No Hearing needs: No Vision needs: Yes Review of Systems Const Denies chills and Denies fever(s) Card Reports no additional complaints and Denies syncope Resp Denies cough GI Denies abdominal pain and Denies heartburn Reports as per HPI and Denies change in libido Neuro Denies syncope Psych Denies change in libido Endo Denies change in libido Physical Exam Const General: cooperative, healthy appearing, comfortable and no acute distress Orientation/consciousness: patient oriented x3 HEENT Face and sinus: Yes normal facial exam Mouth: moist mucous membranes Neck Neck: Yes normal visual inspection, Yes full ROM and Yes trachea midline Chest Chest palpation & inspection: normal inspection of the chest Resp Effort & Inspection: normal respiratory effort, able to speak in complete sentences and no respiratory distress GI Inspection: Yes normal to inspection Back/Spine/Pelvis Cervical Spine: normal cervical lordosis Thoracic/Lumbar Spine: thoracic and lumbar spine normal to inspection Skin General skin exam: no rashes or lesions noted Neuro General: patient oriented x3, gait normal, tone normal and moves all extremities Extrem General: Yes normal to inspection and Yes capillary refill normal Assessment & Plan Assessment & Plan (1) Prostatic adenocarcinoma: Comment: 03/07 - Grade Group 1 Prolaris Active Surveillance Code(s): C61 - Malignant neoplasm of prostate Category: Medical Plan Prostate MRI 4 months Orders: Orders MR Prostate wo/w con 4 Months C61 - Malignant neoplasm of prostate PSA,Total (Free>4and<10) 4 Months C61 - Malignant neoplasm of prostate Patient Instructions: Imaging studies, laboratory and physical exam results were discussed and reviewed in detail. No major barriers to patient understanding were identified. An opportunity to ask questions regarding the treatment plan was provided. All questions were answered. The patient expressed understanding and agreement with the above treatment plan. The patient is aware they should contact our office by phone for worsening of their current condition or the appearance of new urologic symptoms. Compliance is encouraged with any medications and followup testing that is ordered. It is a privilege to participate in the urologic care of your patient. If you have any questions or concerns regarding treatment for the above conditions, or other urologic issues, please do not hesitate to contact me. The office telephone contact is [phone]. This note is constructed using voice recognition software. While every effort has been made to ensure accuracy director building errors may have been included. Yours sincerely, Dr Mikal Parson MD, [facility] - Urology Providers of Expert, Compassionate Care for the Genitourinary System Coding Level of Care Code Est Pt Level 3 (57839) Diagnoses Prostatic adenocarcinoma C61
--- OUTSIDE RECORDS SUMMARY | 2024-08-24 15:17 | XMS_ITS | Continuity of Care Document ---
Author Name [facility] Organization [facility] Care Team Providers Care Key Punch Operator Name Role Phone [facility] Unavailable Unavailable Problems Combined list of problems from Department of Defense and Veterans Affairs facilities. It does not include entries that were removed or entered in error. Problem Status Onset Date Problem Type Date of Resolution Comments Source hypertension systemic Active Condition DoD visit for: administrative purpose Inactive Condition DoD hyperlipidemia Active Condition DoD Blood Pressure Isolated Elevated Inactive Condition DoD upper respiratory infection Inactive Condition DoD Immunizations Combined list of available immunizations from the Department of Defense and Veterans Affairs facilities. Immunization Series Date Given Administered By Site Reaction Lot Number CVX Code Drug Mixer Whipped Topping Status Comments Source Influenza, injectable, quadrivalent, preservative free 0 2021 [id number] [employer] (SKB) complet ed Influenza , injectabl e, quadrival ent, preservat wale free DoD tetanus toxoid, reduced diphtheria toxoid, and acellular pertu is vaccine, adsorbed 2 2021 [id number] 115 Sanofi Pasteur (PMC) complet ed tetanus toxoid, reduced diphtheri a toxoid, and acellular pertussis vaccine, adsorbed DoD COVID Vaccine Moderna 2021 [id number] complet ed COVID Vaccine Moderna 10/20/21 Given Ambulat ory Pharmac y SARS-COV-2 (COVID-19) vaccine, mRNA, spike protein, LNP, preservative free, 100 mcg or 50 mcg dose 3 2021 [id number] 207 Moderna C[employer]Note[employer] Inc. (MOD) complet ed SARS-COV- 2 (COVID-19 ) vaccine, mRNA, spike protein, LNP, preservat wale free, 100 mcg or 50 mcg dose DoD influenza, injectable, quadrivalent- pf 2020 [id number] 150 AGRIMAPSKli ne complet ed influenza , injectabl e, quadrival ent-pf 06/07/21 Given Ambulat ory Pharmac y Influenza, injectable, quadrivalent, preservative free 1 2020 [id number] 150 [facility] (SKB) complet ed Influenza , injectabl e, quadrival ent, preservat wale free DoD COVID Vaccine Moderna 2020 [id number] complet ed COVID Vaccine Moderna 01/04/21 Given Ambulat ory Pharmac y SARS-COV-2 (COVID-19) vaccine, mRNA, spike protein, LNP, preservative free, 100 mcg or 50 mcg dose 2 2020 [id number] 207 Moderna [employer]Note[employer]. (MOD) complet ed SARS-COV- 2 (COVID-19 ) vaccine, mRNA, spike protein, LNP, preservat wale free, 100 mcg or 50 mcg dose DoD COVID Vaccine Moderna 2020 [id number] 207 complet ed COVID Vaccine Moderna 11/22/20 Given Ambulat ory Pharmac y SARS-COV-2 (COVID-19) vaccine, mRNA, spike protein, LNP, preservative free, 100 mcg or 50 mcg dose 1 2020 [id number] 207 Moderna [employer]Note[employer]. (MOD) complet ed SARS-COV- 2 (COVID-19 ) vaccine, mRNA, spike protein, LNP, preservat wale free, 100 mcg or 50 mcg dose DoD influenza, injectable, quadrivalent 2019 [id number] 158 Seq[employer] complet ed influenza , injectabl e, quadrival ent 06/27/20 Given Ambulat ory Pharmac y influenza, injectable, quadrivalent, contains preservative 1 2019 [id number] 284 158 [employer] (SEQ) complet ed influenza , injectabl e, quadrival ent, contains preservat wale DoD influenza, injectable, quadrivalent- pf 2018 [id number] 520 150 [employer] complet ed influenza , injectabl e, quadrival ent-pf 06/19/19 Given Ambulat ory Pharmac y Influenza, injectable, quadrivalent, preservative free 23 2018 [id number] 520 150 [employer] (SEQ) complet ed Influenza , injectabl e, quadrival ent, preservat wale free DoD influenza, injectable, quadrivalent 2017 [id number] 158 [employer] complet ed influenza , injectabl e, quadrival ent 07/08/18 Given Ambulat ory Pharmac y influenza, injectable, quadrivalent, contains preservative 22 2017 [id number] 158 [employer] (SEQ) comple t ed influenza , injectabl e, quadrival ent, contains preservat wale DoD Influenza, inj, MDCK, quadrivalent- pf [id number] 171 [employer] complet ed Influenza , inj, MDCK, quadrival ent-pf 07/18/17 Given Ambulat ory Pharmac y Influenza, injectable, Madin Rimma Canine Kidney, preservative free, quadrivalent 1 [id number] 171 [employer] (SEQ) comple t ed Influenza , injectabl e, Madin Rimma Canine Kidney, preservat wale free, quadrival ent DoD influenza, seasonal, injectable-pf 2015 [id number] 140 [employer] complet ed influenza , seasonal, injectabl e-pf 06/29/16 Given Ambulat ory Pharmac y Influenza, seasonal, injectable, preservative free 20 2015 [id number] 140 Se[employer] (SEQ) comple t ed Influenza , seasonal, injectabl e, preservat wale free DoD influenza, seasonal, injectable 2014 [id number] 141 CSL Behring complet ed influenza , seasonal, injectabl e 06/17/15 Given Ambulat ory Pharmac y Influenza, seasonal, injectable 1 2014 [id number] 141 [employer] (CSL) complet ed Influenza , seasonal, injectabl e DoD influenza, seasonal, injectable 2013 [id number] 141 [employer] comple t ed influenza , seasonal, injectabl e 06/18/14 Given Ambulat ory Pharmac y Influenza, seasonal, injectable 25 2013 [id number] 141 (IDB) complet ed Influenza , seasonal, injectabl e DoD influenza, seasonal, injectable 2012 [id number] 1A 141 CSL Behring complet ed influenza , seasonal, injectabl e 07/18/13 Given Ambulat ory Pharmac y Influenza, seasonal, injectable 1 2012 [id number] 141 [employer] (CSL) complet ed Influenza , seasonal, injectabl e DoD influenza virus vaccine, live 2011 [id number] 111 [employer] [facility] comple t ed influenza virus vaccine, live 06/27/12 Given Ambulat ory Pharmac y tetanus, diphtheria, acellular pertu is 2011 [id number] 115 sanofi pasteur complet ed tetanus, diphtheri a, acellular pertussis 06/27/12 Given Ambulat ory Pharmac y influenza virus vaccine, live, attenuated, for intranasal use 23 2011 [id number] 111 [employer]. ([facility]) complet ed influenza virus vaccine, live, attenuate d, for intranasa l use DoD tetanus toxoid, reduced diphtheria toxoid, and acellular pertu is vaccine, adsorbed 0 2011 [id number] 115 Sanofi Pasteur (PMC) complet ed tetanus toxoid, reduced diphtheri a toxoid, and acellular pertussis vaccine, adsorbed DoD influenza, seasonal, injectable 2010 [id number] 141 sanofi pasteur complet ed influenza , seasonal, injectabl e 07/20/11 Given Ambulat ory Pharmac y Influenza, seasonal, injectable 0 2010 [id number] 141 Sanofi Pasteur (PMC) complet ed Influenza , seasonal, injectabl e DoD hepatitis B adult vaccine 2010 [id number] [id number] 43 GlaxoSmithKli ne complet ed hepatitis B adult vaccine 12/15/10 Given Ambulat ory Pharmac y hepatitis B vaccine, adult dosage 3 2010 [id number] 5AA 43 [employer] (SKB) complet ed hepatitis B vaccine, adult dosage DoD influenza virus vaccine,split 2009 [id number] 15 sanofi pasteur complet ed influenza virus vaccine,s plit 07/05/10 Given Ambulat ory Pharmac y hepatitis B adult vaccine 2009 43 complet ed hepatitis B adult vaccine 07/05/10 Given Ambulat ory Pharmac y influenza virus vaccine, split virus (incl. purified surface antigen)-reti red CODE 21 2009 [id number] 15 Sanofi Pasteur (PMC) complet ed influenza virus vaccine, split virus (incl. purified surface antigen)- retired CODE DoD influenza virus vaccine, whole virus 0 2009 [id number] 16 Sanofi Pasteur (PMC) complet ed influenza virus vaccine, whole virus DoD hepatitis B vaccine, adult dosage 2 2009 43 () complet ed hepatitis B vaccine, adult dosage DoD vaccinia (smallpox) vaccine 2009 VV04-00 3A 75 [employer] complet ed vaccinia (smallpox ) vaccine 06/11/10 Given Ambulat ory Pharmac y vaccinia (smallpox) vaccine 1 2009 VV04-00 3A 75 [facility] ([facility] complet ed vaccinia (smallpox ) vaccine DoD vaccinia (smallpox) vaccine 2009 VV04-[address] [facility] complet ed vaccinia (smallpox ) vaccine 06/05/10 Given Ambulat ory Pharmac y vaccinia (smallpox) vaccine 1 2009 VV04-00 3A 75 [facility] ([facility]) complet ed vaccinia (smallpox ) vaccine DoD anthrax vaccine 2009 [id number] 24 [employer] complet ed anthrax vaccine 05/26/10 Given Ambulat ory Pharmac y hepatitis B adult vaccine 2009 [id number] 8AA 43 GlaxoSmithKli ne complet ed hepatitis B adult vaccine 05/26/10 Given Ambulat ory Pharmac y typhoid Vi capsular polysaccharid e vac 2009 [id number] 101 sanofi pasteur complet ed typhoid Vi capsular polysacch aride vac 05/26/10 Given Ambulat ory Pharmac y anthrax vaccine 6 2009 [id number] 24 [employer] (MIP) complet ed anthrax vaccine DoD hepatitis B vaccine, adult dosage 1 2009 [id number] [id number] 43 SmithKline (SKB) complet ed hepatitis B vaccine, adult dosage DoD typhoid Vi capsular polysaccharid e vaccine 1 2009 [id number] 101 Sanofi Pasteur (PMC) complet ed typhoid Vi capsular polysacch aride vaccine DoD Novel influenza-H1N 1-09, injectable 2009 [id number] 1 127 Novartis Pharmaceutica ls complet ed Novel influenza -P6T1-04, injectabl e 10/21/09 Given Ambulat ory Pharmac y Novel influenza-H1N 1-09, injectable 1 2009 [id number] 1 127 Novartis Pharmaceutica l Shaniqua. (NOV) complet ed Novel influenza -Z9C2-15, injectabl e DoD influenza virus vaccine, live 2008 [id number] 111 [employer] Inc comple t ed influenza virus vaccine, live 06/17/09 Given Ambulat ory Pharmac y influenza virus vaccine, live, attenuated, for intranasal use 1 2008 [id number] 111 [employer] (MED) complet ed influenza virus vaccine, live, attenuate d, for intranasa l use DoD influenza virus vaccine, live 2007 [id number] 111 [employer] [facility] comple t ed influenza virus vaccine, live 06/19/08 Given Ambulat ory Pharmac y influenza virus vaccine, live, attenuated, for intranasal use 1 2007 [id number] 111 [employer]r, [facility]. (MED) complet ed influenza virus vaccine, live, attenuate d, for intranasa l use DoD influenza virus vaccine, live 2006 [id number] 111 [employer] [facility] comple t ed influenza virus vaccine, live 08/15/07 Given Ambulat ory Pharmac y influenza virus vaccine, live, attenuated, for intranasal use 1 2006 [id number] 111 [employer] (MED) complet ed influenza virus vaccine, live, attenuate d, for intranasa l use DoD influenza virus vaccine,split 2005 [id number] 15 sanofi pasteur complet ed influenza virus vaccine,s plit 08/02/06 Given Ambulat ory Pharmac y influenza virus vaccine, split virus (incl. purified surface antigen)-reti red CODE 1 2005 [id number] 15 Sanofi Pasteur (PMC) complet ed influenza virus vaccine, split virus (incl. purified surface antigen)- retired CODE DoD varicella virus vaccine 0 2005 21 () Not Given varicella virus vaccine DoD influenza virus vaccine,split 2004 [id number] 15 sanofi pasteur complet ed influenza virus vaccine,s plit 08/17/05 Given Ambulat ory Pharmac y influenza virus vaccine, split virus (incl. purified surface antigen)-reti red CODE 1 2004 [id number] 15 Sanofi Pasteur (PMC) complet ed influenza virus vaccine, split virus (incl. purified surface antigen)- retired CODE DoD influenza virus vaccine, live 2004 [id number] 111 [employer] [facility] comple t ed influenza virus vaccine, live 09/22/04 Given Ambulat ory Pharmac y influenza virus vaccine, live, attenuated, for intranasal use 0 2004 [id number] 111 [employer] (MED) complet ed influenza virus vaccine, live, attenuate d, for intranasa l use DoD anthrax vaccine 2003 [id number] 24 [employer] complet ed anthrax vaccine 06/30/04 Given Ambulat ory Pharmac y anthrax vaccine 6 2003 [id number] 24 [facility] complet ed anthrax vaccine DoD tetanus-dipht h toxoids (Td) adult/adol 2003 [id number] 09 sanofi pasteur complet ed tetanus-d iphth toxoids (Td) adult/ado l 05/05/04 Given Ambulat ory Pharmac y tetanus and diphtheria toxoids, adsorbed, preservative free, for adult use (2 Lf of tetanus toxoid and 2 Lf of diphtheria toxoid) 0 2003 [id number] 09 Sanofi Pasteur (PMC) complet ed tetanus and diphtheri a toxoids, adsorbed, preservat wale free, for adult use (2 Lf of tetanus toxoid and 2 Lf of diphtheri a toxoid) DoD anthrax vaccine 2003 [id number] 24 [employer] complet ed anthrax vaccine 12/17/03 Given Ambulat ory Pharmac y anthrax vaccine 5 2003 [id number] 24 [facility] ([facility]) complet ed anthrax vaccine DoD tuberculin purified protein derivative 2002 [id number] 96 sanofi pasteur complet ed tuberculi n purified protein derivativ e 06/18/03 Given Ambulat ory Pharmac y influenza virus vaccine,split 2002 [id number] 15 [employer] complet ed influenza virus vaccine,s plit 06/18/03 Given Ambulat ory Pharmac y influenza virus vaccine, whole virus 2002 [id number] 16 [employer] complet ed influenza virus vaccine, whole virus 06/18/03 Given Ambulat ory Pharmac y typhoid Vi capsular polysaccharid e vac 2002 [id number] sanofi pasteur complet ed typhoid Vi capsular polysacch aride vac 06/18/03 Given Ambulat ory Pharmac y influenza virus vaccine, split virus (incl. purified surface antigen)-reti red CODE 0 2002 [id number] 15 [facility] ([facility]HA[facility] complet ed influenza virus vaccine, split virus (incl. purified surface antigen)- retired CODE DoD influenza virus vaccine, whole virus 0 2002 [id number] 16 Lexie (WAL) complet ed influenza virus vaccine, whole virus DoD typhoid Vi capsular polysaccharid e vaccine 0 2002 [id number] 101 Sanofi Pasteur ([facility]) complet ed typhoid Vi capsular polysacch aride vaccine DoD anthrax vaccine 2002 [id number] 24 [employer] complet ed anthrax vaccine 05/28/03 Given Ambulat ory Pharmac y anthrax vaccine 4 2002 [id number] 24 [employer] ([facility]) complet ed anthrax vaccine DoD anthrax vaccine 2002 [id number] 24 [employer] complet ed anthrax vaccine 10/16/02 Given Ambulat ory Pharmac y anthrax vaccine 3 2002 [id number] 24 [employer] ([facility]) complet ed anthrax vaccine DoD anthrax vaccine 2002 [id number] 24 [employer] complet ed anthrax vaccine 09/20/02 Given Ambulat ory Pharmac y anthrax vaccine 2 2002 [id number] 24 [employer] ([facility]) complet ed anthrax vaccine DoD anthrax vaccine 2001 [id number] 24 [employer] complet ed anthrax vaccine 09/06/02 Given Ambulat ory Pharmac y anthrax vaccine 1 2001 [id number] 24 [employer] ([facility]) complet ed anthrax vaccine DoD tuberculin purified protein derivative 2001 [id number] 96 sanofi pasteur complet ed tuberculi n purified protein derivativ e 07/17/02 Given Ambulat ory Pharmac y influenza virus vaccine,split 2001 [id number] 15 sanofi pasteur complet ed influenza virus vaccine,s plit 07/17/02 Given Ambulat ory Pharmac y influenza virus vaccine, whole virus 2001 [id number] 16 sanofi pasteur complet ed influenza virus vaccine, whole virus 07/17/02 Given Ambulat ory Pharmac y influenza virus vaccine, split virus (incl. purified surface antigen)-reti red CODE 0 2001 [id number] 15 Sanofi Pasteur ([facility]) complet ed influenza virus vaccine, split virus (incl. purified surface antigen)- retired CODE DoD influenza virus vaccine, whole virus 0 2001 [id number] 16 Sanofi Pasteur ([facility]) complet ed influenza virus vaccine, whole virus DoD tuberculin purified protein derivative 2000 [id number] 96 sanofi pasteur complet ed tuberculi n purified protein derivativ e 07/18/01 Given Ambulat ory Pharmac y influenza virus vaccine,split 2000 [id number] 15 sanofi pasteur complet ed influenza virus vaccine,s plit 07/18/01 Given Ambulat ory Pharmac y influenza virus vaccine, whole virus 2000 [id number] 16 sanofi pasteur complet ed influenza virus vaccine, whole virus 07/18/01 Given Ambulat ory Pharmac y influenza virus vaccine, split virus (incl. purified surface antigen)-reti red CODE 0 2000 [id number] 15 Sanofi Pasteur (PMC) complet ed influenza virus vaccine, split virus (incl. purified surface antigen)- retired CODE DoD influenza virus vaccine, whole virus 0 2000 [id number] 16 Sanofi Pasteur (PMC) complet ed influenza virus vaccine, whole virus DoD measles/mumps /rubella virus vaccine 2000 03 Merck & Company Inc complet ed measles/m umps/rube lla virus vaccine 05/09/01 Given Ambulat ory Pharmac y tuberculin purified protein derivative 2000 [id number] complet ed tuberculi n purified protein derivativ e 05/09/01 Given Ambulat ory Pharmac y meningococcal polysaccharid e (MPSV4) 2000 32 complet ed meningoco ccal polysacch aride (MPSV4) 05/09/01 Given Ambulat ory Pharmac y measles, mumps and rubella virus vaccine 0 2000 03 Merck (MSD) complet ed measles, mumps and rubella virus vaccine DoD meningococcal polysaccharid e vaccine (MPSV4) 0 2000 32 () complet ed meningoco ccal polysacch aride vaccine (MPSV4) DoD typhoid vaccine, parenteral 2000 [id number] 41 sanofi pasteur complet ed typhoid vaccine, parentera l 01/04/01 Given Ambulat ory Pharmac y typhoid vaccine, parenteral, other than acetone-kille d, dried 0 2000 [id number] 41 Sanofi Pasteur (PMC) complet ed typhoid vaccine, parentera l, other than acetone-k illed, dried DoD influenza virus vaccine,split 2000 [id number] 15 [employer] complet ed influenza virus vaccine,s plit 09/20/00 Given Ambulat ory Pharmac y influenza virus vaccine, whole virus 2000 [id number] 16 [employer] complet ed influenza virus vaccine, whole virus 09/20/00 Given Ambulat ory Pharmac y influenza virus vaccine, split virus (incl. purified surface antigen)-reti red CODE 0 2000 [id number] 15 [employer] (SABIHA) complet ed influenza virus vaccine, split virus (incl. purified surface antigen)- retired CODE DoD influenza virus vaccine, whole virus 0 2000 [id number] 16 [employer] (WAL) complet ed influenza virus vaccine, whole virus DoD hepatitis A adult vaccine 1998 [id number] Merck & QCoefficient Inc complet ed hepatitis A adult vaccine 08/18/99 Given Ambulat ory Pharmac y hepatitis A vaccine, adult dosage 2 1998 [id number] 52 Merck (MSD) complet ed hepatitis A vaccine, adult dosage DoD influenza virus vaccine, whole virus [id number] 16 [employer] complet ed influenza virus vaccine, whole virus 07/21/99 Given Ambulat ory Pharmac y influenza virus vaccine,split [id number] 15 [employer]tri complet ed influenza virus vaccine,s plit 07/21/99 Given Ambulat ory Pharmac y influenza virus vaccine, split virus (incl. purified surface antigen)-reti red CODE 0 19983527 [id number] 15 [employer]se[employer] (WAL) complet ed influenza virus vaccine, split virus (incl. purified surface antigen)- retired CODE DoD influenza virus vaccine, whole virus 0 [id number] 16 [employer] (WAL) complet ed influenza virus vaccine, whole virus DoD hepatitis A adult vaccine 1998 52 Unknown complet ed hepatitis A adult vaccine 01/13/99 Given Ambulat ory Pharmac y hepatitis A vaccine, adult dosage 1 1998 52 Unknown (UNK) comple t ed hepatitis A vaccine, adult dosage DoD influenza virus vaccine, whole virus 19975206 [id number] 16 sanofi pasteur complet ed influenza virus vaccine, whole virus 06/17/98 Given Ambulat ory Pharmac y influenza virus vaccine,split 19974712 [id number] 15 [facility] influenza virus vaccine,s plit 06/17/98 Given Ambulat ory Pharmac y influenza virus vaccine, split virus (incl. purified surface antigen)-reti red CODE 0 19972094 [id number] 15 [facility] P[facility] ([facility]) complet ed influenza virus vaccine, split virus (incl. purified surface antigen)- retired CODE DoD influenza virus vaccine, whole virus 0 [id number] 16 [facility] ([facility]) complet ed influenza virus vaccine, whole virus DoD typhoid, parenteral, AKD 1997 53 complet ed typhoid, parentera l, AKD 12/14/97 Given Ambulat ory Pharmac y typhoid vaccine, parenteral, acetone-kille d, dried ([place] ) 2 1997 53 () complet ed typhoid vaccine, parentera l, acetone-k illed, dried ([place] ) DoD influenza virus vaccine, whole virus 1996 16 complet ed influenza virus vaccine, whole virus 07/16/97 Given Ambulat ory Pharmac y influenza virus vaccine,split 1996 15 complet ed influenza virus vaccine,s plit 07/16/97 Given Ambulat ory Pharmac y influenza virus vaccine, split virus (incl. purified surface antigen)-reti red CODE 0 1996 15 () complet ed influenza virus vaccine, split virus (incl. purified surface antigen)- retired CODE DoD influenza virus vaccine, whole virus 0 1996 16 () complet ed influenza virus vaccine, whole virus DoD yellow fever vaccine 1994 37 complet ed yellow fever vaccine 02/13/95 Given Ambulat ory Pharmac y yellow fever vaccine 0 1994 37 () complet ed yellow fever vaccine DoD meningococcal polysaccharid e (MPSV4) 1993 ACYW-13 5 32 Unknown complet ed meningoco ccal polysacch aride (MPSV4) 04/18/94 Given Ambulat ory Pharmac y meningococcal polysaccharid e vaccine (MPSV4) 0 1993 ACYW-13 5 32 Unknown (UNK) complet ed meningoco ccal polysacch aride vaccine (MPSV4) DoD tetanus-dipht h toxoids (Td) adult/adol 1993 09 complet ed tetanus-d iph toxoids (Td) adult/ado l 04/15/94 Given Ambulat ory Pharmac y poliovirus vaccine, live, oral 1993 02 complet ed polioviru s vaccine, live, oral 04/15/94 Given Ambulat ory Pharmac y trivalent poliovirus vaccine, live, oral 0 1993 02 () complet ed trivalent polioviru s vaccine, live, oral DoD tetanus and diphtheria toxoids, adsorbed, preservative free, for adult use (2 Lf of tetanus toxoid and 2 Lf of diphtheria toxoid) 0 1993 09 () complet ed tetanus and diphtheri a toxoids, adsorbed, preservat wale free, for adult use (2 Lf of tetanus toxoid and 2 Lf of diphtheri a toxoid) DoD Results Combined list of recent chemistry, hematology and other laboratory results from Department of Defense and Veterans Affairs, ranging from 15 months to all on record, depending upon the facility. Order Name Results Value Reference Range Date Interpretation Specimen Comments Source Infectio us Disease HIV-1/O/2 Non-Reac tive 1 (12/16/23 1:30 PM) 12/15 N Interpretiv e Data: INTERPRETAT ION: This method is a screening procedure for the detection of HIV p24 Antigen and Antibodies to HIV-1, including Group O, and/or HIV-2. NON-REACTIV E: HIV-1 antigen and HIV-1 / HIV-2 antibodies were not detected. No laboratory evidence of HIV infection. A negative test result does not exclude the possibility of exposure to or infection with HIV. HIV antibodies and/or p24 antigen may be undetectabl e in some stages of the infection and in some clinical conditions. If acute HIV infection is suspected, consider submitting another specimen to a reference laboratory for HIV-1 RNA. SCREEN REACTIVE - CONFIRMATIO N TO FOLLOW: Possible presence of HIV-1antibo dies, HIV-2 antibodies and/or HIV-1 p24 antigen. Specimen will reflex to the confirmatio n testing that fulfills the Center for Disease Control and Prevention' s HIV diagnostic algorithm. Refer to [facility] Lab Guide for additional information : [email or web address] x Testing performed by [facility] Purvi issa Sendouts Repository Sample Received (12/16/23 1:30 PM) 12/15 N [facility] Vital Signs Combined list of inpatient and outpatient Vital Signs from Department of Defense and Veterans Affairs, ranging from 12 months to all on record, depending upon the facility. Vital Sign Value Date Comments Source No data available for this section Ambulatory Pharmacy Encounters Combined list of: 1) Encounters from Department of Veterans Affairs facilities going back up to thelast 18 months. 2) Encounters from the Department of Defense facilities going back up to 280 months. Location Location Details Encounter Type Encounter Number Reason For Visit Attending Provider ADM Date DC Date Status Disposition Source [facility] [facility] OUTPATIENT [id number] sore throat/ congest ion x2days JERONIMO EGAN 11/11 Released w/o Limitations [facility] [place] [facility] [facility] TELE CONSULT [id number] Notes Entered by: JERONIMO MARTIN 11 Nov 2012 [id number] ------- ------- ------- ------- -- Hyperli pidemia RYAN FOOTE 11/11 [facility] [place] [facility] [facility]) OUTPATIENT [id number] f/u BP and Labs JERONIMO EGAN 11/18 Released w/o Limitations [facility] [place] [facility] [facility] [facility]) OUTPATIENT [id number] F/U HBP CHECK UP/JERONIMO KUMAR 12/21 Released w/o Limitations [facility] [place] [facility] [facility] [facility]) OUTPATIENT [id number] f/u BP per DR CHAYA Avendaño 01/07 Released w/o Limitations [facility] [place] [facility] [facility] [facility]) OUTPATIENT [id number] follow up per CHAYA Gatica 01/29 Released w/o Limitations [facility] [place] [facility] [place] [address](AFN G 104 Med Sq-FM) OUTPATIENT [id number] Notes Entered by: ROSSY LEWIS R 16 Feb 2017 1306 ------- ------- ------- ------- -- Tri[employer] ice PHA-Q FABRIZIO LEWIS 02/16 Released w/o Limitations [facility] [place] [address](A FNG 104 Med Sq-FM) [place] [place] [address](AFN G 104 Med Sq-FM) OUTPATIENT [id number] Notes Entered by: EDNA LOWE 24 May 2017 1049 ------- ------- ------- ------- -- PHAQ follow up EDNA LOWE 05/24 [facility]ased w/o Limitations [facility] [place] [place] [address](A FNG 104 Med Sq-FM) [facility] [place] [address](AFN G 104 Med Sq-FM) OUTPATIENT [id number] Notes Entered by: EDNA LOWE 20 May 2018 1542 ------- ------- ------- ------- -- Tri-Ser EDNA Duarte 05/20 [facility]ased w/o Limitations [facility] [place] [place] [address](A FNG 104 Med Sq-FM) [facility] [place] [address](AFN G 104 Med Sq-FM) OUTPATIENT [id number] Notes Entered by: VERO COLLINS 17 Oct 2019 1326 ------- ------- ------- ------- -- PHAQ VERO COLLINS 10/17 Released w/o Limitations [facility] [place] [place] [address](A FNG 104 Med Sq-FM) [facility] [place] [address](AFN G 104 Med Sq-FM) TELE CONSULT [id number] Notes Entered by: ISMAEL TRAN 08 Dec 2019 1008 ------- ------- ------- ------- -- ISMAEL KENT 12/07 [facility] [place] [address](A FNG 104 Med Sq-FM) [facility], [facility](AFN G 104 Med Sq-FM) OUTPATIENT [id number] 7 Notes Entered by: ISMAEL TRAN 02 Mar 2020 1305 ------- ------- ------- ------- -- DEVORA 1 ISMAEL TRAN 03/02 Released w/o Limitations [facility] [place] [address](A FNG 104 Med Sq-FM) [facility], [facility](AFN G 104 Med Sq-FM) TELE CONSULT [id number] 5 Notes Entered by: ISMAEL TRAN 09 Mar 2020 0729 ------- ------- ------- ------- -- hospISMAEL Olvera 03/09 [facility] [place] [address](A FNG 104 Med Sq-FM) [facility], [facility](AFN G 104 Med Sq-FM) TELE CONSULT [id number] Notes Entered by: ISMAEL TRAN 26 May 2020 1437 ------- ------- ------- ------- -- return note ISMAEL TRAN 05/26 [facility] [place] [address](A FNG 104 Med Sq-FM) [facility], [facility](AFN G 104 Med Sq-FM) TELE CONSULT [id number] ISMAEL TRAN 05/30 [facility] [place] [address](A FNG 104 Med Sq-FM) [facility] [place] [address](AFN G 104 Med Sq-FM) TELE CONSULT [id number] ISMAEL TRAN 08/26 [facility] [place] [address](A FNG 104 Med Sq-FM) [facility] [place] [address](AFN G 104 Med Sq-FM) OUTPATIENT [id number] ISMAEL TRAN 11/17 Released w/o Limitations [facility] [place] [address](A FNG 104 Med Sq-FM) [facility] [place] [address](AFN G 104 Med Sq-FM) OUTPATIENT [id number] Notes Entered by: ISMAEL TRAN 24 Nov 2020 1332 ------- ------- ------- ------- -- PHAQ ISMAEL TRAN 11/24 Released w/o Limitations [facility] [place] [address](A FNG 104 Med Sq-FM) [facility] [place] [address](AFN G 104 Med Sq-FM) OUTPATIENT [id number] Notes Entered by: DELIA HOLLAND 23 Nov 2021 0832 ------- ------- ------- ------- -- Audiogr am/PHAQ /FABRIZIO TAYLOR 11/23 Released w/o Limitations [facility] [place] [address](A FNG 104 Med Sq-FM) [place] [place] [address](AFN G 104 Med Sq-FM) OUTPATIENT [id number] Notes Entered by: EDISON BIRD 14 Nov 2022 1550 ------- ------- ------- ------- -- Audiogr am ISMAEL TRAN 11/14 Released w/o Limitations [facility] [place] [address](A FNG 104 Med Sq-FM) [facility] [place] [address](AFN G 104 Med Sq-FM) OUTPATIENT [id number] Notes Entered by: MIHIR AUSTINKYLIE LIMA Horn 14 Nov 2022 1802 ------- ------- ------- ------- -- CARLA Oscar 11/15 Released w/o Limitations [facility] [place] [place] [address](A FNG 104 Med Sq-FM) 8203R-104 MDG Care Not Rendered [id number] 11/29 Discharge Disposition: Home or Self Care 8203R-1 04 MDG 8203R-104 MDG Outpatient [id number] [facility] [place] 12/15 Discharge Disposition: Home or Self Care 8203R-1 04 MDG Procedures Combined list of: 1) Procedures from Department of Veterans Affairs facilities going back up to thelast 18 months, not all [place] non-surgical procedures are included; 2) All procedures from the Department of Defense facilities. Procedure Procedure Type Code Date Perfomer Comments Sourc e No data available for this section Ambulatory P harmacy Social History Combined list of available smoking, tobacco, and other social history from Department of Defense and Veterans Affairs facilities. Social History Type Response Date Comment Sourc e This section is an empty social history section. DoD Assessment and Plan Combined list of future care activities from Department of Defense and Veterans Affairs facilities (e.g., assessment and plan notes, appointments, orders, and referrals). Additional future care activities may be listed in the Plan of Care section. Result Assessment and Plan Date Source Assessment and Plan No data available for this section 08/24/2024 Ambulatory Pharmacy Functional Status Combined list of recent functional and cognitive assessments recorded at [facility] Defense and [facility] ([facility]).VA Functional [place] Measurement (FIM) Scale: 1 = Total Assistance (Subject = 0% +), 2 = Maximal Assistance (Subject = 25% +), 3 = Moderate Assistance (Subject = 50% +), 4 = Minimal Assistance (Subject = 75% +), 5 = Supervision, 6 = Modified [place] (Device), 7 = Complete [place] (Timely, Safely). Assessment Date/Time Source Assessment Type Assessment Skill Assessment Score Assessment Details No data available for this section
== END 2024-08-17 15:58 | disposition home or self-care (01) ==
PROVIDERS: PCP Internal Medicine; Visit Provider Urology
DX: C61 Malignant neoplasm of prostate (principal)
CPT/HCPCS: 99213

== ENCOUNTER → 2024-08-17 15:25 | Outpatient (BNVA) | payer BC, SELFPAY | PROVIDERS: PCP Internal Medicine; Visit Provider Urology ==

== ENCOUNTER 2024-11-01 14:22 | Outpatient (AMB) | payer BC, SELFPAY ==
--- OUTSIDE RECORDS SUMMARY | 2024-11-01 14:24 | XMS_ITS | Clinical Summary ---
Author Organization [facility] Address [address] [place] [address] Care Team Providers Care Inventory Representative Name Role Phone Pcp, No Primary Care Provider Unavailabl e Allergies Active Allergy Reactions Criticality Noted Date Comments Lisinopril Cough Low 05/22/2020 Medications Medication Sig Dispensed Refills Start Date End Date Status losartan (COZAAR) 50 MG tablet Take 50 mg by mouth daily. Active amLODIPine (NORVASC) 5 MG tablet Take 5 mg by mouth daily. Active atorvastatin (LIPITOR) 10 MG tablet Take 10 mg by mouth daily. Active sertraline (ZOLOFT) 50 MG tablet Take 50 mg by mouth daily. Active Social History Tobacco Use Types Packs/Day Years Used Date Smoking Tobacco: Never Smokeless Tobacco: Never Alcohol Use Standard Drinks/Week Comments Never 0 (1 standard drink = 0.6 oz pur e alcohol) AUDIT-C Answer Date Recorded Q1: How often do you have a drink containing alc ohol? Never 05/22/2020 Average Number of Drinks Not on file 020 Frequency of Binge Drinking Not on file 03/2020 Sex and Gender Information Value Date Recorded Sex Assigned at Not on file Gender Identity Not on file Sexual Orientation Not on file Last Filed Vital Signs Vital Sign Reading Time Taken Comments Blood Pressure 135/90 05/22/2020 1:51 PM EDT Pulse 60 05/22/2020 1:51 PM EDT Temperature 36.9 ??C (98.5 ??F) 05/22/2020 1:51 PM ED T Respiratory Rate 16 05/22/2020 1:51 PM EDT Oxygen Saturation 99% 05/22/2020 1:51 PM EDT Inhaled Oxygen Concentration - - Weight 90.7 kg (200 lb) 05/22/2020 1:51 PM EDT Height 177.8 cm (5' 10 ) 05/22/2020 1:51 PM EDT Body Mass Index 28.7 05/22/2020 1:51 PM EDT Plan of Treatment Health Maintenance Due Date Last Done Comments Hepatitis C Virus Screening 1970 HIV Screening 1983 DTaP/Tdap/Td Vaccines (1 - Tdap) 1989 Hepatitis B Vaccines (1 of 3 - 19+ 3-dose series) 1989 Colonoscopy 2015 Pneumococcal Vaccines 50+ (1 of 1 - PCV) 2020 Zoster (Shingles) Vaccine (1 of 2) 2020 Influenza Vaccine 04/15/2024 COVID-19 Vaccine (1 - 2023-2 5 season) 2024 Pneumococcal Vaccine: Pediat zhen (0-5 Years) and At-Risk Patients (6 to 49 Years) Aged Out No longer eligible b ased on patient's age to complete this topic Care Teams Inventory Representative Relationship Specialty Start Date End Date Pcp, No PCP - General General Medicine 09/15/19
--- OUTSIDE RECORDS SUMMARY | 2024-11-01 14:25 | XMS_ITS | Clinical Summary ---
Author Organization [facility] Address [phone] [facility] [email or web address] [address] Care Team Providers Care Associate Store Manager Name Role Phone Jamaica Kent MD Primary Care Provider [phone] Allergies Active Allergy Reactions Criticality Noted Date Comments Lisinopril 09/01/2019 Medications Medication Sig Dispensed Refills Start Date End Date Status amLODIPine (NORVASC) 10 MG tablet 07/30/2019 Active atorvastatin (LIPITOR) 20 MG tablet 10/03/2019 Active hydroCHLOROthiazide (HYDRODIURIL) 25 MG tablet 07/30/2019 Active losartan (COZAAR) 50 MG tablet 07/25/2019 Active Social History Tobacco Use Types Packs/Day Years Used Date Smoking Tobacco: Never Smokeless Tobacco: Never Education Answer Date Recorded Are you interested in more education? Not on carole e 01/10/2023 Are you concerned about learning? Not on file 01/10/2023 No 01/10/2023 No 01/10/2023 Digital Access Answer Date Recorded No 02/08/2023 No 02/08/2023 No 02/08/2023 Reliable internet access at home? Not on file 02/08/2023 Device with a working camera? Not on file Sex and Gender Information Value Date Recorded Sex Assigned at Not on file Gender Identity Not on file Sexual Orientation Not on file Last Filed Vital Signs Vital Sign Reading Time Taken Comments Blood Pressure 131/90 10/22/2019 12:07 PM EST Pulse 90 10/22/2019 12:07 PM EST Temperature 36.9 ??C (98.5 ??F) 10/22/2019 12:[address] Respiratory Rate 18 10/22/2019 12:07 PM EST Oxygen Saturation 97% 10/22/2019 12:07 PM EST Inhaled Oxygen Concentration - - Weight 93 kg (205 lb) 09/01/2019 4:41 PM EST Height 175.3 cm (5' 9 ) 10/22/2019 12:07 PM EST Body Mass Index - - Plan of Treatment Health Maintenance Due Date Last Done Comments Adult Td,Tdap Booster 1970 CREATININE LEVEL 1970 LIPID PANEL 1970 POTASSIUM LEVEL 1970 DEPRESSION SCREENING 1982 HEPATITIS B SCREENING 1988 HEPATITIS C SCREENING 1988 HIV ONE-TIME SCREENING (18-6 5 YEARS) 1988 HEPATITIS B VACCINES (1 of 3 - 19+ 3-dose series) 1989 COLOGUARD 2015 COLONOSCOPY 2015 COLORECTAL CANCER SCREENING 2015 FIT TEST 2015 FOBT 2015 SIGMOIDOSCOPY 2015 VIRTUAL COLONOSCOPY 2015 PNEUMOCOCCAL VACCINES (50+ years) (1 of 1 - PCV) 2020 ZOSTER VACCINES (1 of 2) 2020 INFLUENZA VACCINE (#1) 2024 9, 10/31/2017, 06/29/2016 COVID-19 VACCINE (1 - 2023-2 5 season) 2024 SMOKING STATUS SCREENING (On ce After 26 Yrs) Completed 10/22/2019 HEPATITIS A VACCINES Aged Out No long er eligible based on patient's age to complete this topic HIB VACCINES Aged Out No longer eligi ble based on patient's age to complete this topic MENINGOCOCCAL VACCINES (ACWY) Aged Out No longer eligible based on patient's age to complete this topic Medical Devices Not on file David Perez Personal/Family Self 1970 [address] [facility] [place] [id number] David Perez Personal/Family Self 1970 [address] [place] David Perez Personal/Family Self 1970 [address] [place] David Perez Personal/Family Self 1970 [address] [place] David Perez Personal/Family Self 1970 [address] [facility] [place] David Perez Personal/Family Self 1970 [address] [facility] [place] David Perez Personal/Family Self 1970 [address] [facility] [place] David Perez Personal/Family Self 1970 [address] [facility] [place] Care Teams Associate Store Manager Relationship Specialty Start Date End Date Jamaica Kent [facility] [address] [place] [address] PCP - General Internal Medicine 09/01/19 Additional Source Comments The information contained in this document represents components of the legal health record. It is not the complete legal health record.[facility]
--- OUTSIDE RECORDS SUMMARY | 2024-11-01 14:25 | XMS_ITS | Continuity of Care Document ---
Author Name [facility] Organization [facility] Care Team Providers Care Lead Mason Tender Name Role Phone [facility] Unavailable Unavailable Problems Combined list of problems [...] Site Reaction Lot Number CVX Code Drug Authorizer Status Comments Source Influenza, injectable, quadrivalent, preservative free 0 2021 [id number] 150 [employer] (SKB) complet ed Influenza , injectabl e, quadrival ent, preservat wale free DoD tetanus toxoid, reduced diphtheria toxoid, and acellular pertu is vaccine, adsorbed 2 2021 [id number] 115 Sanofi Pasteur (PMC) complet ed tetanus toxoid, reduced diphtheri a toxoid, and acellular pertussis vaccine, adsorbed DoD COVID Vaccine Moderna 2021 [id number] complet ed COVID Vaccine Moderna 10/20/21 Given Ambulat ory Pharmac y SARS-COV-2 (COVID-19) vaccine, mRNA, spike protein, LNP, preservative free, 100 mcg or 50 mcg dose 3 2021 [id number] 207 Moderna [employer] Inc. (MOD) complet ed SARS-COV- 2 (COVID-19 ) vaccine, mRNA, spike protein, LNP, preservat wale free, 100 mcg or 50 mcg dose DoD influenza, injectable, quadrivalent- pf 2020 [id number] 150 Pax8Kli ne complet ed influenza , injectabl e, quadrival ent-pf 06/07/21 Given Ambulat ory Pharmac y Influenza, injectable, quadrivalent, preservative free 1 2020 [id number] 150 [facility] (SKB) complet ed Influenza , injectabl e, quadrival ent, preservat wale free DoD COVID Vaccine Moderna 2020 [id number] 207 complet ed COVID Vaccine Moderna 01/04/21 Given Ambulat ory Pharmac y SARS-COV-2 (COVID-19) vaccine, mRNA, spike protein, LNP, preservative free, 100 mcg or 50 mcg dose 2 2020 [id number] 207 Moderna [employer] (MOD) complet ed SARS-COV- 2 (COVID-19 ) vaccine, mRNA, spike protein, LNP, preservat wale free, 100 mcg or 50 mcg dose DoD COVID Vaccine Moderna 2020 [id number] 207 complet ed COVID Vaccine Moderna 11/22/20 Given Ambulat ory Pharmac y SARS-COV-2 (COVID-19) vaccine, mRNA, spike protein, LNP, preservative free, 100 mcg or 50 mcg dose 1 2020 [id number] 207 Moderna [employer] (MOD) complet ed SARS-COV- 2 (COVID-19 ) vaccine, mRNA, spike protein, LNP, preservat wale free, 100 mcg or 50 mcg dose DoD influenza, injectable, quadrivalent 2019 [id number] 158 Seqirus complet ed influenza , injectabl e, quadrival ent 06/27/20 Given Ambulat ory Pharmac y influenza, injectable, quadrivalent, contains preservative 1 2019 [id number] 284 158 Seqirus (SEQ) complet ed influenza , injectabl e, quadrival ent, contains preservat wale DoD influenza, injectable, quadrivalent- pf 2018 [id number] 520 150 Se[employer]irus complet ed influenza , injectabl e, quadrival ent-pf 06/19/19 Given Ambulat ory Pharmac y Influenza, injectable, quadrivalent, preservative free 23 2018 [id number] 520 150 Se[employer]irus (SEQ) complet ed Influenza , injectabl e, quadrival ent, preservat wale free DoD influenza, injectable, quadrivalent 2017 [id number] 158 Se[employer] complet ed influenza , injectabl e, quadrival ent 07/08/18 Given Ambulat ory Pharmac y influenza, injectable, quadrivalent, contains preservative 22 2017 [id number] 158 Seqirus (SEQ) comple t ed influenza [...] quadrival ent DoD influenza, seasonal, injectable-pf 2015 [id number] 140 Seqirus complet ed influenza , seasonal, injectabl e-pf 06/29/16 Given Ambulat ory Pharmac y Influenza, seasonal, injectable, preservative free 20 2015 [id number] 140 Seqirus (SEQ) comple t ed Influenza , seasonal, injectabl e, preservat wale free DoD influenza, seasonal, injectable 2014 [id number] 141 CSL Behring complet ed influenza , seasonal, injectabl e 06/17/15 Given Ambulat ory Pharmac y Influenza, seasonal, injectable 1 2014 [id number] 141 [employer] (CSL) complet ed Influenza , seasonal, injectabl e DoD influenza, seasonal, injectable 2013 [id number] 141 [employer]ical comple t ed influenza , seasonal, injectabl e 06/18/14 Given Ambulat ory Pharmac y Influenza, seasonal, injectable 25 2013 [id number] 141 (IDB) complet ed Influenza , seasonal, injectabl e DoD influenza, seasonal, injectable 2012 [id number] 1A 141 CSL Behring complet ed influenza , seasonal, injectabl e 07/18/13 Given Ambulat ory Pharmac y Influenza, seasonal, injectable 1 2012 [id number] 141 [employer] (CSL) complet ed Influenza , seasonal, injectabl e DoD influenza virus vaccine, live 2011 [id number] 111 66. com [facility] comple t ed influenza virus vaccine, live 06/27/12 Given Ambulat ory Pharmac y tetanus, diphtheria, acellular pertu is 2011 [id number] 115 sanofi pasteur complet ed tetanus, diphtheri a, acellular pertussis 06/27/12 Given Ambulat ory Pharmac y influenza virus vaccine, live, attenuated, for intranasal use 23 2011 [id number] 111 [email or web address] ([facility]) complet ed influenza virus vaccine, live, attenuate d, for intranasa l use DoD tetanus toxoid, reduced diphtheria toxoid, and acellular pertu is vaccine, adsorbed 0 2011 [id number] 115 Sanofi Pasteur (PMC) complet ed tetanus toxoid, reduced diphtheri a toxoid, and acellular pertussis vaccine, adsorbed DoD influenza, seasonal, injectable 2010 [id number] 141 sanofi pasteur complet ed influenza , seasonal, injectabl e 07/20/11 Given Ambulat ory Pharmac y Influenza, seasonal, injectable 0 2010 [id number] 141 Sanofi Pasteur (PMC) complet ed Influenza , seasonal, injectabl e DoD hepatitis B adult vaccine 2010 [id number] 43 GlaxoSmithKli ne complet ed hepatitis B adult vaccine 12/15/10 Given Ambulat ory Pharmac y hepatitis B vaccine, adult dosage 3 2010 [id number] [id number] 43 [employer] (SKB) complet ed hepatitis B vaccine, adult dosage DoD influenza virus vaccine,split 2009 [id number] 15 sanofi pasteur complet ed influenza virus vaccine,s plit 07/05/10 Given Ambulat ory Pharmac y hepatitis B adult vaccine 2009 43 complet ed hepatitis B adult vaccine 07/05/10 Given Ambulat ory Pharmac y influenza virus vaccine, split virus (incl. purified surface antigen)-reti red CODE 21 2009 [id number] 15 Sanofi Pasteur (PMC) complet ed influenza virus vaccine, split virus (incl. purified surface antigen)- retired CODE DoD influenza virus vaccine, whole virus 0 2009 [id number] 16 Sanofi Pasteur (PMC) complet ed influenza virus vaccine, whole virus DoD hepatitis B vaccine, adult dosage 2 2009 43 () complet ed hepatitis B vaccine, adult dosage DoD vaccinia (smallpox) vaccine 2009 VV04-00 3A 75 [place] complet ed vaccinia (smallpox ) vaccine 06/11/10 Given Ambulat ory Pharmac y vaccinia (smallpox) vaccine 1 2009 VV04-00 3A 75 [facility] complet ed vaccinia (smallpox ) vaccine DoD vaccinia (smallpox) vaccine 2009 VV04-00 3A 75 Functional Neuromodulation [facility] complet ed vaccinia (smallpox ) vaccine 06/05/10 Given Ambulat ory Pharmac y vaccinia (smallpox) vaccine 1 2009 VV04-00 3A 75 [facility] ([facility]) complet ed vaccinia (smallpox ) vaccine DoD anthrax vaccine 2009 [id number] 24 [employer] complet ed anthrax vaccine [...] ory Pharmac y anthrax vaccine 6 2009 [id number] 24 [employer] [place] (MIP) complet ed anthrax vaccine DoD hepatitis B vaccine, adult dosage 1 2009 [id number] [id number] 43 SmithKline (SKB) complet ed hepatitis B vaccine, adult dosage DoD typhoid Vi capsular polysaccharid e vaccine 1 2009 [id number] 101 Sanofi Pasteur (PMC) complet ed typhoid Vi capsular polysacch aride vaccine DoD Novel influenza-H1N 1-09, injectable 2009 [id number] 1 127 Novartis Pharmaceutica ls complet ed Novel influenza -[id number], injectabl e 10/21/09 Given Ambulat ory Pharmac y Novel influenza-H1N 1-09, injectable 1 2009 [id number] 1 127 Novartis Pharmaceutica l Shaniqua. (NOV) complet ed Novel influenza -O9R7-74, injectabl e DoD influenza virus vaccine, live 2008 [id number] 111 66. com Inc comple t ed influenza virus vaccine, live 06/17/09 Given Ambulat ory Pharmac y influenza virus vaccine, live, attenuated, for intranasal use 1 2008 [id number] 111 [employer]. (MED) complet ed influenza virus vaccine, live, attenuate d, for intranasa l use DoD influenza virus vaccine, live 2007 [id number] 111 66. com [facility] comple t ed influenza virus vaccine, live 06/19/08 Given Ambulat ory Pharmac y influenza virus vaccine, live, attenuated, for intranasal use 1 2007 [id number] 111 [employer], [facility]. (MED) complet ed influenza virus vaccine, live, attenuate d, for intranasa l use DoD influenza virus vaccine, live 2006 [id number] 111 66. com [facility] comple t ed influenza virus vaccine, live 08/15/07 Given Ambulat ory Pharmac y influenza virus vaccine, live, attenuated, for intranasal use 1 2006 [id number] 111 [employer] (MED) complet ed influenza virus vaccine, live, attenuate d, for intranasa l use DoD influenza virus vaccine,split 2005 [id number] 15 sanofi pasteur complet ed influenza virus vaccine,s plit 08/02/06 Given Ambulat ory Pharmac y influenza virus vaccine, split virus (incl. purified surface antigen)-reti red CODE 1 2005 [id number] 15 Sanofi Pasteur (PMC) complet ed influenza virus vaccine, split virus (incl. purified surface antigen)- retired CODE DoD varicella virus vaccine 0 2005 21 () Not Given varicella virus vaccine DoD influenza virus vaccine,split 2004 [id number] 15 sanofi pasteur complet ed influenza virus vaccine,s plit 08/17/05 Given Ambulat ory Pharmac y influenza virus vaccine, split virus (incl. purified surface antigen)-reti red CODE 1 2004 [id number] 15 Sanofi Pasteur (PMC) complet ed influenza virus vaccine, split virus (incl. purified surface antigen)- retired CODE DoD influenza virus vaccine, live 2004 [id number] 111 66. com [facility] comple t ed influenza virus vaccine, live 09/22/04 Given Ambulat ory Pharmac y influenza virus vaccine, live, attenuated, for intranasal use 0 2004 [id number] 111 [employer] (MED) complet ed influenza virus vaccine, live, attenuate d, for intranasa l use DoD anthrax vaccine 2003 [id number] 24 [employer] complet ed anthrax vaccine 06/30/04 Given Ambulat ory Pharmac y anthrax vaccine 6 2003 [id number] 24 [facility] complet ed anthrax vaccine DoD tetanus-dipht h toxoids (Td) adult/adol 2003 [id number] 09 sanofi pasteur complet ed tetanus-d iphth toxoids (Td) adult/ado l 05/05/04 Given Ambulat ory Pharmac y tetanus and diphtheria toxoids, adsorbed, preservative free, for adult use (2 Lf of tetanus toxoid and 2 Lf of diphtheria toxoid) 0 2003 [id number] 09 Sanofi Pasteur (PMC) complet ed tetanus and diphtheri a toxoids, adsorbed, preservat wale free, for adult use (2 Lf of tetanus toxoid and 2 Lf of diphtheri a toxoid) DoD anthrax vaccine 2003 [id number] 24 [employer] complet ed anthrax vaccine 12/17/03 Given Ambulat ory Pharmac y anthrax vaccine 5 2003 [id number] 24 [facility] ([facility]) complet ed anthrax vaccine DoD tuberculin purified protein derivative 2002 [id number] 96 sanofi pasteur complet ed tuberculi n purified protein derivativ e 06/18/03 Given Ambulat ory Pharmac y influenza virus vaccine,split 2002 [id number] 15 [facility] complet ed influenza virus vaccine,s plit 06/18/03 Given Ambulat ory Pharmac y influenza virus vaccine, whole virus 2002 [id number] 16 [facility] complet ed influenza virus vaccine, whole virus 06/18/03 Given Ambulat ory Pharmac y typhoid Vi capsular polysaccharid e vac 2002 [id number] 101 sanofi pasteur complet ed typhoid Vi capsular polysacch aride vac 06/18/03 Given Ambulat ory Pharmac y influenza virus vaccine, split virus (incl. purified surface antigen)-reti red CODE 0 2002 [id number] 15 [facility] ([facility]ABIHA[facility] complet ed influenza virus vaccine, split virus (incl. purified surface antigen)- retired CODE DoD influenza virus vaccine, whole virus 0 2002 [id number] 16 Lex[employer] (WAL) complet ed influenza virus vaccine, whole virus DoD typhoid Vi capsular polysaccharid e vaccine 0 2002 [id number] 101 Sanofi Pasteur ([facility]) complet ed typhoid Vi capsular polysacch aride vaccine DoD anthrax vaccine 2002 [id number] 24 [employer] complet ed anthrax vaccine 05/28/03 Given Ambulat ory Pharmac y anthrax vaccine 4 2002 [id number] 24 [employer] [place] ([facility]) complet ed anthrax vaccine DoD anthrax vaccine 2002 [id number] 24 [employer] complet ed anthrax vaccine 10/16/02 Given Ambulat ory Pharmac y anthrax vaccine 3 2002 [id number] 24 [employer] [place] ([facility]) complet ed anthrax vaccine DoD anthrax vaccine 2002 [id number] 24 [employer] complet ed anthrax vaccine 09/20/02 Given Ambulat ory Pharmac y anthrax vaccine 2 2002 [id number] 24 [employer] [place] ([facility]) complet ed anthrax vaccine DoD anthrax vaccine 2001 [id number] 24 [employer] complet ed anthrax vaccine 09/06/02 Given Ambulat ory Pharmac y anthrax vaccine 1 2001 [id number] 24 [employer] [place] ([facility]) complet ed anthrax vaccine DoD tuberculin purified protein derivative 2001 [id number] 96 sanofi pasteur complet ed tuberculi n purified protein derivativ e 07/17/02 Given Ambulat ory Pharmac y influenza virus vaccine,split 2001 [id number] 15 sanofi pasteur complet ed influenza virus vaccine,s plit 07/17/02 Given Ambulat ory Pharmac y influenza virus vaccine, whole virus 2001 [id number] 16 sanofi pasteur complet ed influenza virus vaccine, whole virus 07/17/02 Given Ambulat ory Pharmac y influenza virus vaccine, split virus (incl. purified surface antigen)-reti red CODE 0 2001 [id number] 15 Sanofi Pasteur ([facility]) complet ed influenza virus vaccine, split virus (incl. purified surface antigen)- retired CODE DoD influenza virus vaccine, whole virus 0 2001 [id number] 16 Sanofi Pasteur ([facility]) complet ed influenza virus vaccine, whole virus DoD tuberculin purified protein derivative 2000 [id number] 96 sanofi pasteur complet ed tuberculi n purified protein derivativ e 07/18/01 Given Ambulat ory Pharmac y influenza virus vaccine,split 2000 [id number] 15 sanofi pasteur complet ed influenza virus vaccine,s plit 07/18/01 Given Ambulat ory Pharmac y influenza virus vaccine, whole virus 2000 [id number] 16 sanofi pasteur complet ed influenza virus vaccine, whole virus 07/18/01 Given Ambulat ory Pharmac y influenza virus vaccine, split virus (incl. purified surface antigen)-reti red CODE 0 2000 [id number] 15 Sanofi Pasteur (PMC) complet ed influenza virus vaccine, split virus (incl. purified surface antigen)- retired CODE DoD influenza virus vaccine, whole virus 0 2000 [id number] 16 Sanofi Pasteur (PMC) complet ed influenza virus vaccine, whole virus DoD measles/mumps /rubella virus vaccine 2000 03 Merck & Company Inc complet ed measles/m umps/rube lla virus vaccine 05/09/01 Given Ambulat ory Pharmac y tuberculin purified protein derivative 2000 [id number] complet ed tuberculi n purified protein [...] vaccine (MPSV4) DoD typhoid vaccine, parenteral 2000 [id number] 41 sanofi pasteur complet ed typhoid vaccine, parentera l 01/04/01 Given Ambulat ory Pharmac y typhoid vaccine, parenteral, other than acetone-kille d, dried 0 2000 I2141-6 41 Sanofi Pasteur (PMC) complet ed typhoid vaccine, parentera l, other than acetone-k illed, dried DoD influenza virus vaccine,split 2000 [id number] 15 [facility] complet ed influenza virus vaccine,s plit 09/20/00 Given Ambulat ory Pharmac y influenza virus vaccine, whole virus 2000 [id number] 16 [employer] complet ed influenza virus vaccine, whole virus 09/20/00 Given Ambulat ory Pharmac y influenza virus vaccine, split virus (incl. purified surface antigen)-reti red CODE 0 2000 [id number] 15 [employer] (SABIHA) complet ed influenza virus vaccine, split virus (incl. purified surface antigen)- retired CODE DoD influenza virus vaccine, whole virus 0 2000 [id number] 16 [employer] (WAL) complet ed influenza virus vaccine, whole virus DoD hepatitis A adult vaccine 1998 [id number] [employer] complet ed hepatitis A adult vaccine 08/18/99 Given Ambulat ory Pharmac y hepatitis A vaccine, adult dosage 2 1998 [id number] 52 Merck (MSD) complet ed hepatitis A vaccine, adult dosage DoD influenza virus vaccine, whole virus 19984905 [id number] 16 [facility] complet ed influenza virus vaccine, whole virus 07/21/99 Given Ambulat ory Pharmac y influenza virus vaccine,split 19981111 [id number] 15 [employer] complet ed influenza virus vaccine,s plit 07/21/99 Given Ambulat ory Pharmac y influenza virus vaccine, split virus (incl. purified surface antigen)-reti red CODE 0 19982236 [id number] 15 [employer] (WAL) complet ed influenza virus vaccine, split virus (incl. purified surface antigen)- retired CODE DoD influenza virus vaccine, whole virus 0 [id number] 16 [employer] (WAL) complet ed influenza virus vaccine, whole virus DoD hepatitis A adult vaccine 1998 52 Unknown complet ed hepatitis A adult vaccine 01/13/99 Given Ambulat ory Pharmac y hepatitis A vaccine, adult dosage 1 1998 52 Unknown (UNK) comple t ed hepatitis A vaccine, adult dosage DoD influenza virus vaccine, whole virus 19971732 [id number] 16 sanofi pasteur complet ed influenza virus vaccine, whole virus 06/17/98 Given Ambulat ory Pharmac y influenza virus vaccine,split 19970838 [id number] 15 [facility] complet ed influenza virus vaccine,s plit 06/17/98 Given Ambulat ory Pharmac y influenza virus vaccine, split virus (incl. purified surface antigen)-reti red CODE 0 19979233 [id number] 15 [facility] ([facility]) complet ed influenza virus vaccine, split virus (incl. purified surface antigen)- retired CODE DoD influenza virus vaccine, whole virus 0 19976526 [id number] 16 [facility] ([facility]) complet ed influenza virus vaccine, whole virus [...] Reference Range Date Interpretation Specimen Comments Source Infectiou s Disease HIV-1/O/2 Non-Reac tive 1 (12/16/23 1:30 [...] Prevention' s HIV diagnostic algorithm. Refer to [facility] Lab Guide for additional information : 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 Location Location Details Encounter Type Encounter Number Reason For Visit Attending Provider ADM Date DC Date Status Disposition Source [facility] [place] [facility] OUTPATIENT [id number] sore throat/ congest ion x2days JERONIMO EGAN 11/11 Released w/o Limitations [facility] [place] [facility] [facility] [place] [facility] TELE CONSULT [id number] Notes Entered by: JERONIMO MARTIN 11 Nov 2012 1355 ------- ------- ------- ------- -- Hyperli pidemia RYAN FOOTE 11/11 [facility] [place] [facility] [facility] [place] [facility] OUTPATIENT [id number] f/u BP and Labs JERONIMO EGAN 11/18 Released w/o Limitations [facility] [place] [facility] [facility] [place] [facility]) OUTPATIENT [id number] F/U HBP CHECK UP/JERONIMO KUMAR 12/21 Released w/o Limitations [facility] [place] [facility] [facility] [place] [facility]) OUTPATIENT [id number] f/u BP per LCDR CHAYA Avendaño 01/07 Released w/o Limitations [facility] [place] [facility] [facility] [place] [facility]) OUTPATIENT [id number] follow up per CHAYA Gatica 01/29 Released w/o Limitations [facility] [place] [facility] [address](AFN G 104 Med Sq-FM) OUTPATIENT [id number] Notes Entered by: ROSSY LEWIS R 16 Feb 2017 1306 ------- ------- ------- ------- -- [employer] ice PHA-Q FABRIZIO LEWIS 02/16 Released w/o Limitations [facility] [place] [address](A FNG 104 Med Sq-FM) [place] [address](AFN G 104 Med Sq-FM) OUTPATIENT [id number] Notes Entered by: EDNA LOWE 24 May 2017 1049 ------- ------- ------- ------- -- PHAQ follow up EDNA LOWE 05/24 Released w/o Limitations [facility] [place] [address](A FNG 104 Med Sq-FM) [place] [address](AFN G 104 Med Sq-FM) OUTPATIENT [id number] Notes Entered by: EDNA LOWE 20 May 2018 1542 ------- ------- ------- ------- -- Tri-Ser EDNA Duarte 05/20 Released w/o Limitations [facility] [place] [address](A FNG 104 Med Sq-FM) [place] [address](AFN G 104 Med Sq-FM) OUTPATIENT [id number] Notes Entered by: VERO COLLINS 17 Oct 2019 1326 ------- ------- ------- ------- -- PHAQ VERO COLLINS 10/17 Released w/o Limitations [facility] [place] [address](A FNG 104 Med Sq-FM) [place] [address](AFN G 104 Med Sq-FM) TELE CONSULT [id number] Notes Entered by: ISMAEL TRAN 08 Dec 2019 1008 ------- ------- ------- ------- -- ISMAEL KENT 12/07 [facility] [place] [address](A FNG 104 Med Sq-FM) [place] [address](AFN G 104 Med Sq-FM) OUTPATIENT [id number] Notes Entered by: ISMAEL TRAN 02 Mar 2020 1305 ------- ------- ------- ------- -- DEVORA 1 ISMAEL TRAN 03/02 [facility]ased w/[facility] Limitations [facility] [place] [address](A FNG 104 Med Sq-FM) [place] [address](AFN G 104 Med Sq-FM) TELE CONSULT [id number] Notes Entered by: ISMAEL TRAN 09 Mar 2020 0729 ------- ------- ------- ------- -- hospISMAEL Olvera 03/09 [facility] [place] [address](A FNG 104 Med Sq-FM) [place] [address](AFN G 104 Med Sq-FM) TELE CONSULT [id number] Notes Entered by: ISMAEL TRAN 26 May 2020 1437 ------- ------- ------- ------- -- return note ISMAEL TRAN 05/26 [facility] [place] [address](A FNG 104 Med Sq-FM) [place] [address](AFN G 104 Med Sq-FM) TELE CONSULT [id number] ISMAEL TRAN 05/30 [facility] [place] [address](A FNG 104 Med Sq-FM) [place] [address](AFN G 104 Med Sq-FM) TELE CONSULT [id number] ISMAEL TRAN LORRAINE 08/26 [facility] [place] [address](A FNG 104 Med Sq-FM) [place] [address](AFN G 104 Med Sq-FM) OUTPATIENT [id number] ANASTACIA TRANJANES PETERS 11/17 Released w/o Limitations [facility] [place] [address](A FNG 104 Med Sq-FM) [place] [address](AFN G 104 Med Sq-FM) OUTPATIENT [id number] Notes Entered by: ISMAEL TRAN 24 Nov 2020 1332 ------- ------- ------- ------- -- PHAQ ISMAEL TRAN 11/24 Released w/o Limitations [facility] [place] [address](A FNG 104 Med Sq-FM) [place] [address](AFN G 104 Med Sq-FM) OUTPATIENT [id number] Notes Entered by: DELIA HOLLAND 23 Nov 2021 0832 ------- ------- ------- ------- -- Audiogr am/PHAQ /FABRIZIO TAYLOR 11/23 Released w/o Limitations [facility] [place] [address](A FNG 104 Med Sq-FM) [place] [address](AFN G 104 Med Sq-FM) OUTPATIENT [id number] Notes Entered by: EDISON BIRD 14 Nov 2022 1550 ------- ------- ------- ------- -- Audiogr am ISMAEL TRAN 11/14 Released w/o Limitations [facility] [place] [address](A FNG 104 Med Sq-FM) [place] [address](AFN G 104 Med Sq-FM) OUTPATIENT [id number] Notes Entered by: MIHIR AUSTINKYLIE AMATO Justina 14 Nov 2022 1802 ------- ------- ------- ------- -- YAKOV ADRIAN KYLIELIMA Horn 11/15 Released w/[facility] Limitations [facility] [place] [address](A FNG 104 Med Sq-FM) 8203R-104 MDG Care Not Rendered [id number] 11/29 Discharge Disposition: Home or Self Care [id number] 04 MDG 8203R-104 MDG Outpatient [id number] [place]AR [place] 12/15 Discharge Disposition: Home or [facility] 8203R-1 04 MDG Procedures Combined list of: 1) Procedures from [facility] going back up to thelast 18 months, not all [place] non-surgical procedures are included; 2) All procedures [...] Plan No data available for this section 11/01/2024 Ambulatory Pharmacy Functional Status Combined list of recent functional and cognitive assessments recorded at [facility] Functional Wright Measurement (FIM) Scale: 1 = Total Assistance (Subject = 0% +), 2 = Maximal Assistance (Subject = 25% +), 3 = Moderate Assistance (Subject = 50% +), 4 = Minimal Assistance (Subject = 75% +), 5 = Supervision, 6 = Modified Wright (Device), 7 = Complete Wright (Timely, Safely). Assessment Date/Time Source Assessment Type Assessment Skill Assessment Score Assessment Details No data available for this section
--- NOTE | 2024-11-01 14:32 | A.OFFPC_ITS ---
Vital Signs 11/01/24 14:33 Height 5 ft 9 in Weight 228 lb BMI 33.7 BP 130/62 Blood Pressure Location Lt brachial Position Sitting Pulse 80 Pulse Source Pulse Oximeter Pulse Oximetry (%) 98 Oxygen Delivery Method Room Air Intake Visit Reasons: prostate cancer, gerd Allergies lisinopril [LISINOPRIL] Allergy (Unknown, Verified 11/01/24 14:33) cough Tobacco use date assessed: 11/01/24 Dental Screening Dental Screen Date: 11/01/24 Did you have a dental visit in the last 12 months?: Yes Did you have a dental problem in the last 6 months where you did not have access to dental care?: No Was dental information given to patient?: Patient has dentist HPI prostate cancer, gerd HPI Details The patient is a 54-year-old male presenting for a follow-up related to multiple chronic conditions and health maintenance. The patient has a history of essential hypertension, managed with amlodipine 10 mg once daily and losartan 50 mg once daily. Previously recorded blood pressure readings indicate good control with the current regimen. He is diagnosed with hypercholesterolemia, with current management focusing on achieving an LDL cholesterol goal of less than 130 mg/dL. The patient is on atorvastatin 20 mg once daily, with the last lipid profile in July showing elevated triglycerides at 196 mg/dL. Obstructive sleep apnea has been identified, with past attempts at CPAP therapy found intolerable. The patient underwent nasal surgery, which reportedly improved symptoms but has not followed up with a sleep study. The patient is treated for generalized anxiety disorder, with no specific alternative therapies discussed during this visit. His impaired glucose tolerance is monitored, with the latest hemoglobin A1c of 5.7%. Dietary and exercise interventions supplement this. In terms of prostate cancer, the patient underwent robotic prostatectomy in August 2023. He continues with PSA surveillance, noting the last PSA measurement at 6.4 ng/mL. He is due for an MRI in December for further assessment. GERD is also a component of his medical history with no recent exacerbations reported. Preventive health discussions included reminders about the necessity of a colonoscopy, as the patient has yet to complete one. Other vaccinations were reviewed, with the patient confirming flu and pneumonia vaccinations but uncertain regarding a tetanus vaccination. A recommendation for updating the tetanus vaccine was made. PFSH Medical History Prostate cancer PSA elevation Anxiety and depression Fatty liver GERD (gastroesophageal reflux disease) Obesity (BMI 30-39.9) Vitamin D deficiency Obstructive sleep apnea Hypercholesterolemia Hypertension Impaired fasting glucose Alcohol abuse Surgical History History of prostate biopsy History of esophagogastroduodenoscopy (EGD) H/O nasal septoplasty Family History Father Alcoholism Breast cancer Mother Hypertension Hypercholesteremia Brother Hypercholesteremia Gout Maternal Grandfather Throat cancer Maternal Grandmother Hypertension Maternal Uncle Throat cancer Colon cancer Social History Household Members Other:: - 1 son Housing: House Alcohol intake: former Comment: 2019 last drink Patient Tobacco Use Status: Former Tobacco user Tobacco use type: Cigar Years Smoked: quit 2020 e-Cigarette/Vaping Use: Never Used Second Hand Smoke Exposure: No service: Yes Current occupational status: employed Current occupation: [employer] Cognitive needs: No Hearing needs: No Vision needs: Yes Questionnaire PHQ-9 Over the last 2 weeks, how often have you been bothered by any of the following problems? 1. Little interest or pleasure in doing things: not at all 2. Feeling down, depressed, or hopeless: not at all 3. Trouble falling or staying asleep, or sleeping too much: not at all 4. Feeling tired or having little energy: not at all 5. Poor appetite or overeating: not at all 6. Feeling bad about yourself - or that you are a failure or have let yourself or your family down: not at all 7. Trouble concentrating on things, such as reading the newspaper or watching television: not at all 8. Moving or speaking so slowly that other people could have noticed. Or the opposite - being so fidgety or restless that you have been moving around a lot more than usual: not at all 9. Thoughts that you would be better off or of hurting yourself in some way: not at all Total score: 0 Depression Screening Interpretation: Negative Depression Screening Done: Yes Source: Developed by Drs. Jass Arias, Nicole Holland, Leobardo Baca and colleagues, with an educational jody from [employer]. Thrive Questionnaire Date Thrive assessed: 11/01/24 I am a: Patient What is your living situation today?: I have a steady place to live Within the past 12 months, did the food you bought not last and you didn't have the money to get more?: Never true Within the past 12 months, did you worry whether your food would run out before you got money to buy more?: Never true Do you have trouble paying for medicines?: No Do you have trouble getting transportation to medical appointments?: No Do you have trouble paying your heating and electricity bill?: No Do you have trouble taking care of your child, family member or friend?: No Do you have trouble with day-to-day activities such as bathing, preparing meals, shopping, managing finances, etc.?: No Are you currently unemployed and looking for a job?: No Are you interested in more education?: No Please select the resources that you would like help with: None Currently or been in a relationship where the following occur: No concerns reported THRIVE Score: 0 AUDIT C Alcohol Use Questionnaire (AUDIT-C) 2. How many drinks containing alcohol do you have on a typical day when you are drinking?: 1 or 2 3. How often do you have six or more drinks on one occasion?: Never Total Score: 0 DEYSI-7 AMB Questionnaire DEYSI-7 Date DEYSI - 7 assessed: 11/01/24 Feeling nervous, anxious, or on edge: 0 = Not at all Not being able to stop or control worryin = Not at all Worrying too much about different things: 0 = Not at all Trouble relaxin = Not at all Being so restless that it is hard to sit still: 0 = Not at all Becoming easily annoyed or irritable: 0 = Not at all Feeling afraid as if something awful might happen: 0 = Not at all Total DEYSI-7 score (0-4 normal; 5-9 mild; 10-14 moderate; 15-21 severe): 0 Source: Developed by Drs. Jass Arias, Nicole Holland, Leobardo Baca and colleagues, with an educational jody from [employer]. Physical exam (Primary Care) Vital Signs: Last Vital Signs Pulse 80 11/01/24 14:33 BP 130/62 11/01/24 14:33 Pulse Ox 98 11/01/24 14:33 Oxygen Delivery Method Room Air 11/01/24 14:33 BMI result Body Mass Index 33.7 Tobacco/Smoking Status: Tobacco use Status Tobacco use date assessed 11/01/24 11/01/24 14:34 Patient Tobacco Use Status Former Tobacco user 11/01/24 14:32 Tobacco use type Cigar 11/01/24 14:32 e-Cigarette/Vaping Use Never Used 11/01/24 14:32 PHQ-9: PHQ-9 Score PHQ-9: Total score 0 11/01/24 15:05 Depression Screening Interpretation: Negative Thrive Assessment: Date of Thrive Assessment Date Thrive assessed 11/01/24 11/01/24 14:32 Currently or been in a relationship where the following occur: No concerns reported Const General: alert; No acute distress Eyes Conjunctivae: conjunctivae normal Resp Auscultation: clear to auscultation bilaterally Cardio Rate: regular rate Rhythm: regular rhythm GI Inspection: Yes normal to inspection Extrem General: Yes normal to inspection and No edema Coding Level of Care Code Est Pt Level 4 (03125) Complex EM visit Add On G2211 Diagnoses Prostatic adenocarcinoma C61 Colon cancer screening Z12.11 Essential hypertension I10 Hypertension type: essential hypertension Hypercholesterolemia E78.00 Obesity (BMI 30-39.9) E66.9 Gastroesophageal reflux disease without esophagitis K21.9 Esophagitis presence: without esophagitis Impaired fasting glucose R73.01 Generalized anxiety disorder F41.1 Assessment & Plan Assessment & Plan (1) Prostatic adenocarcinoma: Comment: 03/07 - Grade Group 1 Prolaris Active Surveillance Code(s): C61 - Malignant neoplasm of prostate Category: Medical Plan: Continue to follow-up with urology and MRI planned December (2) Colon cancer screening: Comment: colonoscopy Code(s): Z12.11 - Encounter for screening for malignant neoplasm of colon Category: Medical Plan: Patient is reminded about colonoscopy (3) Hypertension: Code(s): I10 - Essential (primary) hypertension Category: Medical Qualifiers: Hypertension type: essential hypertension Qualified Code(s): I10 - Essential (primary) hypertension Plan: Continue with blood pressure medication. Decrease salt intake and exercise on amlodipine 10 mg once a day losartan 50 mg once a day (4) Hypercholesterolemia: Code(s): E78.00 - Pure hypercholesterolemia, unspecified Category: Medical Plan: Avoid fried foods, chicken skin, eggs, butter margarine, pastries and meat. Be it pork or beef they have a lot of cholesterol LDL goal of less than 130 and triglyceride of less than 150 on atorvastatin 20 mg once a day (5) Obesity (BMI 30-39.9): Code(s): E66.9 - Obesity, unspecified Category: Medical Plan: Diet and exercise (6) GERD (gastroesophageal reflux disease): Comment: some improvement Code(s): K21.9 - Gastro-esophageal reflux disease without esophagitis Category: Medical Qualifiers: Esophagitis presence: without esophagitis Qualified Code(s): K21.9 - Gastro-esophageal reflux disease without esophagitis Plan: Avoid the foods that causes that usually spicy foods, tomato products, juices, coffee, soda and foods that your sensitive to. After eating do not lie down, allow 3-4 hours before in lie down. And keep the head of bed above 30 degrees to avoid the acid from going up. (7) Impaired fasting glucose: Code(s): R73.01 - Impaired fasting glucose Category: Medical Plan: Decrease the amount of carbohydrate intake, pasta, bread, rice and potatoes are all sugar and that is aside from all the sweet stuff, remember that fruits are good but they are Sweet also. (8) Generalized anxiety disorder: Comment: decline counselling 10/2021 Code(s): F41.1 - Generalized anxiety disorder Category: Medical Plan: Continue with present medication. Plan - Continue current antihypertensive regimen with amlodipine and losartan, given stable blood pressure control. - Maintain atorvastatin therapy for hypercholesterolemia and encourage dietary adjustments to manage elevated triglycerides. - Advise repeat sleep study for further evaluation of obstructive sleep apnea, prioritizing home sleep apnea testing to reassess severity and necessity for CPAP or alternative therapies. - Continue follow-up with urology for ongoing surveillance of prostate cancer with PSA assessments and scheduled MRI in December. - Recommend dietary and lifestyle modifications for impaired glucose tolerance, with periodic monitoring of hemoglobin A1c. - Monitor anxiety disorder, assessing the need for adjustments in therapy as required. - For GERD, suggest continued adherence to current management strategies unless symptoms change. - Remind patient regarding upcoming colonoscopy and ensure scheduling. - Administer tetanus booster, confirming last administration was over a decade ago. - Maintain adherence to recommended vaccination scheduling, especially with ongoing flu season and COVID-19 considerations. - Plan follow-up in six months unless patient reports emergent concerns, with interim check-ins for any major changes or symptoms. Orders: Orders RT home sleep study Today G47.33 - Obstructive sleep apnea (adult) (pediatric) Complete Blood Count Auto Diff 6 Months E78.00 - Pure hypercholesterolemia, unspecified Comprehensive Met. Panel 6 Months E78.00 - Pure hypercholesterolemia, unspecified Liver Panel 6 Months E78.00 - Pure hypercholesterolemia, unspecified, R79.89 - Other specified abnormal findings of blood chemistry PSA,Total (Free>4and<10) 6 Months E78.00 - Pure hypercholesterolemia, unspecified Free T4 (Free Thyroxine) 6 Months E78.00 - Pure hypercholesterolemia, unspecified Hemoglobin A1c 6 Months E78.00 - Pure hypercholesterolemia, unspecified Thyroid Stimulating Hormone 6 Months E78.00 - Pure hypercholesterolemia, unspecified Vitamin B12 and Folate 6 Months E78.00 - Pure hypercholesterolemia, unspecified
[2024-11-01 14:33] VITALS: BP 130/62; PULSE 80; O2SAT 98; BMI 33.7
== END 2024-11-01 15:14 | disposition home or self-care (01) ==
PROVIDERS: PCP Internal Medicine; Visit Provider Internal Medicine
DX: I10 Essential (primary) hypertension (principal); C61 Malignant neoplasm of prostate; E66.9 Obesity, unspecified; Z68.33 Body mass index [BMI] 33.0-33.9, adult; Z12.11 Encounter for screening for malignant neoplasm of colon; E78.00 Pure hypercholesterolemia, unspecified; K21.9 Gastro-esophageal reflux disease without esophagitis; R73.01 Impaired fasting glucose; F41.1 Generalized anxiety disorder

== ENCOUNTER 2024-12-09 09:11 | Outpatient (REF) | payer BC, SELFPAY ==
[2024-12-09 10:37] LABS: PSA,Total (Free>4and<10) 7.98 ng/mL (0.00-4.00)
[2024-12-10 11:29] LABS: Free Prostate Spec Ag 0.9 ng/mL; Percent Free Prostate Spec Ag 11 % (calc) (>25); Prostate Specific Ag Total 8.3 ng/mL (< OR = 4.0)
== END 2024-12-09 09:12 | disposition home or self-care (01) ==
LOC: HO.LAB 09:11
PROVIDERS: PCP Internal Medicine; Visit Provider Urology
DX: C61 Malignant neoplasm of prostate (principal); Z12.5 Encounter for screening for malignant neoplasm of prostate
CPT/HCPCS: 36415; 84153; 84154

== ENCOUNTER → 2024-12-16 08:57 | Outpatient (BNV) | payer BC, SELFPAY | PROVIDERS: PCP Internal Medicine; Visit Provider Radiology Diagnostic Radiology | DX: C61 Malignant neoplasm of prostate (principal) | CPT/HCPCS: 72197 ==

== ENCOUNTER 2024-12-16 09:20 | Outpatient (REF) | payer BC, SELFPAY ==
--- NOTE | ~2024-12-16 | MR_ITS ---
EXAMINATION: MR PROSTATE WITHOUT THEN WITH IV CONTRAST HISTORY: C61 - Malignant neoplasm of prostate TECHNIQUE: 1.5T body coil survey of the pelvis was performed. Phase array coil imaging of the prostate was performed in multiplanar high resolution axial, coronal, sagittal fast spin echo T2 and axial T1 weighted imaging sequences. Axial diffusion imaging at intermediate and high field performed with ADC mapping. Next, 10 mL Gadavist was given by intravenous infusion, and dynamic axial imaging performed. COMPARISON: Comparison is made with the prior outside examination from [facility] dated 04/21/2023. CLINICAL DATA: Most recent PSA: 7.98 ng/mL on 12/09/2024 PSA Density: 0.20 ng/mL squared Prostate Biopsy: Positive biopsy on 03/04/2023 with a Jose score 3+3 = 6. FINDINGS: Prostate size: 4.3 x 4.5 x 4.0 cm. Calculated prostate volume is 40.2 mL. Hemorrhage: None. Transitional Zone: There is moderate heterogeneous nodular hypertrophy of the transitional zone. Peripheral Zone: There are linear foci of decreased T2 signal intensity within the peripheral zone which can be seen in the setting of prostatitis of scarring. No discrete focus of abnormal signal intensity is identified to suggest clinically significant prostate carcinoma. Seminal Vesicles/Ejaculatory Ducts: Symmetric and normal in signal and caliber. Pelvic Lymph Nodes: No obturator or internal iliac lymph nodes meeting size criteria for adenopathy. Marrow Signal: Normal marrow signal and enhancement without focal lesion identified. MR/MR Prostate wo/w con IMPRESSION: No discrete focus of abnormal signal intensity is identified to suggest clinically significant prostate carcinoma. PI-RADS 2: Low (clinically significant cancer is unlikely to be present) PI-RADS Assessment Categories PI-RADS 1: Very low (clinically significant cancer is highly unlikely to be present) PI-RADS 2: Low (clinically significant cancer is unlikely to be present) PI-RADS 3: Intermediate (the presence of clinically significant cancer is equivocal) PI-RADS 4: High (clinically significant cancer is likely to be present) PI-RADS 5: Very high (clinically significant cancer is highly likely to be present) [employer]. MR Prostate Imaging Reporting and Data System version 2.1. [email or web address] Electronically signed by: Jass Wilkins MD 12/16/2024 11:38 AM EDT RP
--- OUTSIDE RECORDS SUMMARY | 2024-12-16 09:52 | XMS_ITS | Clinical Summary ---
Author Organization [facility] Address [address] [address] Phone Care Team Providers Care Command Center Analyst Name Role Phone Jamaica Kent MD Primary Care Provider [phone] Allergies Active Allergy Reactions Criticality Noted Date [...] (#1) 2024 9, 10/31/2017, 06/29/2016 COVID-19 VACCINE (2023-2 5 season) 2024 SMOKING STATUS SCREENING (On [...] this topic Medical Devices Not on file Care Teams Command Center Analyst Relationship Specialty Start Date End Date Jamaica Kent MD [address] [facility] [place] [address] PCP - General Internal Medicine 09/01/19 Additional Source Comments The information contained in this document represents components of the legal health record. It is not the complete legal health record.[facility]
--- OUTSIDE RECORDS SUMMARY | 2024-12-16 09:52 | XMS_ITS | Clinical Summary ---
Author Organization [facility] Address [address] [place] [address] Care Team Providers Care Straight Pin Making Machine Operator Name Role Phone Pcp, No Primary Care [...] age to complete this topic Care Teams Straight Pin Making Machine Operator Relationship Specialty Start Date End Date Pcp, No PCP - General General Medicine 09/15/19
--- OUTSIDE RECORDS SUMMARY | 2024-12-16 09:52 | XMS_ITS | Continuity of Care Document ---
Author Name [facility] Organization [facility] Care Team Providers Care Automotive Sales Manager Name Role Phone [facility] Unavailable Unavailable Immunizations Combined list of available immunizations from the Department of Defense and Veterans Affairs facilities. Immunization Series Date Given Administered By Site Reaction Lot Number CVX Code Drug Bed Operator Status Comments Source COVID Vaccine Moderna 2021 [id number] complet ed COVID Vaccine Moderna 10/20/21 Given Ambulat ory Pharmac y influenza, injectable, quadrivalent- pf 2020 [id number] Profectus BiosciencesKli ne complet ed influenza , injectabl e, quadrival ent-pf 06/07/21 Given Ambulat ory Pharmac y COVID Vaccine Moderna 2020 [id number] 207 complet ed COVID Vaccine Moderna 01/04/21 Given Ambulat ory Pharmac y COVID Vaccine Moderna 2020 [id number] 207 complet ed COVID Vaccine Moderna 11/22/20 Given Ambulat ory Pharmac y influenza, injectable, quadrivalent 2019 [id number] 158 Seqirus complet ed influenza , injectabl e, quadrival ent 06/27/20 Given Ambulat ory Pharmac y influenza, injectable, quadrivalent- pf 2018 [id number] 150 Seqirus complet ed influenza , injectabl e, quadrival ent-pf 06/19/19 Given Ambulat ory Pharmac y influenza, injectable, quadrivalent 2017 [id number] Seqirus complet ed influenza , injectabl e, quadrival ent 07/08/18 Given Ambulat ory Pharmac y Influenza, inj, MDCK, quadrivalent- pf 2016 [id number] Seqirus complet ed Influenza , inj, MDCK, quadrival ent-pf 07/18/17 Given Ambulat ory Pharmac y influenza, seasonal, injectable-pf 2015 [id number] Seqirus complet ed influenza , seasonal, injectabl e-pf 06/29/16 Given Ambulat ory Pharmac y influenza, seasonal, injectable 2014 [id number] 141 CSL Behring complet ed influenza , seasonal, injectabl e 06/17/15 Given Ambulat ory Pharmac y influenza, seasonal, injectable 2013 [id number] 141 ID Biomedical comple t ed influenza , seasonal, injectabl e 06/18/14 Given Ambulat ory Pharmac y influenza, seasonal, injectable 2012 [id number] 141 CSL Behring complet ed influenza , seasonal, injectabl e 07/18/13 Given Ambulat ory Pharmac y influenza virus vaccine, live 2011 [id number] Panraven comple t ed influenza virus vaccine, live 06/27/12 Given Ambulat ory Pharmac y tetanus, diphtheria, acellular pertu is 2011 [id number] 115 sanofi pasteur complet ed tetanus, diphtheri a, acellular pertussis 06/27/12 Given Ambulat ory Pharmac y influenza, seasonal, injectable 2010 [id number] 141 sanofi pasteur complet ed influenza , seasonal, injectabl e 07/20/11 Given Ambulat ory Pharmac y hepatitis B adult vaccine 2010 [id number] 43 GlaxoSmithKli ne complet ed hepatitis B adult vaccine 12/15/10 Given Ambulat ory Pharmac y influenza virus vaccine,split 2009 [id number] 15 sanofi pasteur complet ed influenza virus vaccine,s plit 07/05/10 Given Ambulat ory Pharmac y hepatitis B adult vaccine 2009 43 complet ed hepatitis B adult vaccine 07/05/10 Given Ambulat ory Pharmac y vaccinia (smallpox) vaccine 2009 [id number] 75 Explorys complet ed vaccinia (smallpox ) vaccine 06/11/10 Given Ambulat ory Pharmac y vaccinia (smallpox) vaccine 2009 [id number] 75 Explorys complet ed vaccinia (smallpox ) vaccine 06/05/10 Given Ambulat ory Pharmac y anthrax vaccine 2009 [id number] Emergent Biosolutions complet ed anthrax vaccine 05/26/10 Given Ambulat ory Pharmac y hepatitis B adult vaccine 2009 [id number] 43 GlaxoSmithKli ne complet ed hepatitis B adult vaccine 9/11/10 Given Ambulat ory Pharmac y typhoid Vi capsular polysaccharid e vac 2009 [id number] 101 sanofi pasteur complet ed typhoid Vi capsular polysacch aride vac 05/26/10 Given Ambulat ory Pharmac y Novel influenza-H1N 1-09, injectable 2009 [id number] 127 Novartis Pharmaceutica ls complet ed Novel influenza -U6H1-70, injectabl e 10/21/09 Given Ambulat ory Pharmac y influenza virus vaccine, live 2008 [id number] 111 Medimmune Inc comple t ed influenza virus vaccine, live 06/17/09 Given Ambulat ory Pharmac y influenza virus vaccine, live 2007 [id number] 111 Medimmune Inc comple t ed influenza virus vaccine, live 06/19/08 Given Ambulat ory Pharmac y influenza virus vaccine, live 2006 [id number] 111 Medimmune Inc comple t ed influenza virus vaccine, live 08/15/07 Given Ambulat ory Pharmac y influenza virus vaccine,split 2005 [id number] 15 sanofi pasteur complet ed influenza virus vaccine,s plit 08/02/06 Given Ambulat ory Pharmac y influenza virus vaccine,split 2004 [id number] 15 sanofi pasteur complet ed influenza virus vaccine,s plit 08/17/05 Given Ambulat ory Pharmac y influenza virus vaccine, live 2004 [id number] 111 Medimmune Inc comple t ed influenza virus vaccine, live 09/22/04 Given Ambulat ory Pharmac y anthrax vaccine 2003 [id number] [employer] complet ed anthrax vaccine 06/30/04 Given Ambulat ory Pharmac y tetanus-dipht h toxoids (Td) adult/adol 2003 [id number] 09 sanofi pasteur complet ed tetanus-d iphth toxoids (Td) adult/ado l 05/05/04 Given Ambulat ory Pharmac y anthrax vaccine 2003 [id number] [employer] complet ed anthrax vaccine 12/17/03 Given Ambulat ory Pharmac y tuberculin purified protein derivative 2002 [id number] 96 sanofi pasteur complet ed tuberculi n purified protein derivativ e 06/18/03 Given Ambulat ory Pharmac y influenza virus vaccine,split 2002 [id number] 15 [facility] complet ed influenza virus vaccine,s plit 06/18/03 Given Ambulat ory Pharmac y influenza virus vaccine, whole virus 2002 [id number] 16 [facility] complet ed influenza virus vaccine, whole virus 06/18/03 Given Ambulat ory Pharmac y typhoid Vi capsular polysaccharid e vac 2002 [id number] sanofi pasteur complet ed typhoid Vi capsular polysacch aride vac 06/18/03 Given Ambulat ory Pharmac y anthrax vaccine 2002 [id number] 24 [employer] complet ed anthrax vaccine 05/28/03 Given Ambulat ory Pharmac y anthrax vaccine 2002 [id number] 24 [employer] complet ed anthrax vaccine 10/16/02 Given Ambulat ory Pharmac y anthrax vaccine 2002 [id number] 24 [employer] complet ed anthrax vaccine 09/20/02 Given Ambulat ory Pharmac y anthrax vaccine 2001 [id number] 24 [employer] complet ed anthrax vaccine 09/06/02 Given Ambulat ory Pharmac y tuberculin purified protein derivative 2001 [id number] 96 sanofi pasteur complet ed tuberculi n purified protein derivativ e 07/17/02 Given Ambulat ory Pharmac y influenza virus vaccine,split 2001 [id number] 15 sanofi pasteur complet ed influenza virus vaccine,s plit 07/17/02 Given Ambulat ory Pharmac y influenza virus vaccine, whole virus 2001 [id number] 16 sanofi pasteur complet ed influenza virus vaccine, whole virus 07/17/02 Given Ambulat ory Pharmac y tuberculin purified protein derivative 2000 [id number] 96 sanofi pasteur complet ed tuberculi n purified protein derivativ e 07/18/01 Given Ambulat ory Pharmac y influenza virus vaccine,split 2000 [id number] 15 sanofi pasteur complet ed influenza virus vaccine,s plit 07/18/01 Given Ambulat ory Pharmac y influenza virus vaccine, whole virus 2000 [id number] 16 sanofi pasteur complet ed influenza virus vaccine, whole virus 07/18/01 Given Ambulat ory Pharmac y measles/mumps /rubella virus vaccine 2000 03 Merck & Company Inc complet ed measles/m umps/rube lla virus vaccine 05/09/01 Given Ambulat ory Pharmac y tuberculin purified protein derivative 2000 [id number] complet ed tuberculi n purified protein derivativ e 05/09/01 Given Ambulat ory Pharmac y meningococcal polysaccharid e (MPSV4) 2000 32 complet ed meningoco ccal polysacch aride (MPSV4) 05/09/01 Given Ambulat ory Pharmac y typhoid vaccine, parenteral 2000 [id number] sanofi pasteur complet ed typhoid vaccine, parentera l 01/04/01 Given Ambulat ory Pharmac y influenza virus vaccine,split 2000 [id number] 15 [facility] complet ed influenza virus vaccine,s plit 09/20/00 Given Ambulat ory Pharmac y influenza virus vaccine, whole virus 2000 [id number] 16 [facility] complet ed influenza virus vaccine, whole virus 09/20/00 Given Ambulat ory Pharmac y hepatitis A adult vaccine 1998 [id number] Merck & Company Inc complet ed hepatitis A adult vaccine 08/18/99 Given Ambulat ory Pharmac y influenza virus vaccine, whole virus [id number] 16 [facility] complet ed influenza virus vaccine, whole virus 07/21/99 Given Ambulat ory Pharmac y influenza virus vaccine,split [id number] 15 [facility] complet ed influenza virus vaccine,s plit 07/21/99 Given Ambulat ory Pharmac y hepatitis A adult vaccine 1998 52 Unknown complet ed hepatitis A adult vaccine 01/13/99 Given Ambulat ory Pharmac y influenza virus vaccine, whole virus [id number] 16 sanofi pasteur complet ed influenza virus vaccine, whole virus 06/17/98 Given Ambulat ory Pharmac y influenza virus vaccine,split [id number] 15 sanofi pasteur complet ed influenza virus vaccine,s plit 06/17/98 Given Ambulat ory Pharmac y typhoid, parenteral, AKD 1997 53 complet ed typhoid, parentera l, AKD 12/14/97 Given Ambulat ory Pharmac y influenza virus vaccine, whole virus 1996 16 complet ed influenza virus vaccine, whole virus 07/16/97 Given Ambulat ory Pharmac y influenza virus vaccine,split 1996 15 complet ed influenza virus vaccine,s plit 07/16/97 Given Ambulat ory Pharmac y yellow fever vaccine 1994 37 complet ed yellow fever vaccine 02/13/95 Given Ambulat ory Pharmac y meningococcal polysaccharid e (MPSV4) 1993 [id number] 32 Unknown complet ed meningoco ccal polysacch aride (MPSV4) 04/18/94 Given Ambulat ory Pharmac y tetanus-dipht h toxoids (Td) adult/adol 1993 09 complet ed tetanus-d iphth toxoids (Td) adult/ado l 04/15/94 Given Ambulat ory Pharmac y poliovirus vaccine, live, oral 1993 02 complet ed polioviru s vaccine, live, oral 04/15/94 Given Ambulat ory Pharmac y Results Combined list of recent chemistry, hematology [...] Prevention' s HIV diagnostic algorithm. Refer to [facility] Lab Guide for additional information : [email or web address] x Testing performed by [id number] Miscellan eous Sendouts Repository Sample Received (12/16/23 1:30 PM) 12/15 N [id number] Procedures Combined list of: 1) Procedures from Department of Veterans Affairs facilities going [facility], not all [place] non-surgical procedures are included; 2) All procedures from the Department of Defense facilities. Procedure Procedure Type Code Date Perfomer Comments Sourc e No data available for this section Ambulatory P harmacy Assessment and Plan Combined list of future care activities from Department of Defense and Veterans Affairs facilities (e.g., assessment and plan notes, appointments, orders, and referrals). Additional future care activities may be listed in the Plan of Care section. Result Assessment and Plan Date Source Assessment and Plan No data available for this section 12/16/2024 Ambulatory Pharmacy Functional Status Combined list of recent functional and cognitive assessments recorded at Department of Defense and Veterans Affairs ([place] Functional [place] Measurement (FIM) Scale: 1 = Total Assistance (Subject = 0% +), 2 = Maximal Assistance (Subject = 25% +), 3 = Moderate Assistance (Subject = 50% +), 4 = Minimal Assistance (Subject = 75% +), 5 = Supervision, 6 = Modified [place] (Device), 7 = Complete [place] (Timely, Safely). Assessment Date/Time Source Assessment Type Assessment Skill Assessment Score Assessment Details No data available for this section
[2024-12-16] MEDS: gadobutroL 10 ML VIAL IVPUSH (11:06)
== END 2024-12-16 09:21 | disposition home or self-care (01) ==
LOC: HO.MRI 09:20
PROVIDERS: PCP Internal Medicine; Visit Provider Urology
DX: C61 Malignant neoplasm of prostate (principal)
CPT/HCPCS: 72197; A9585

== ENCOUNTER 2024-12-29 14:36 | Outpatient (AMB) | payer BC, SELFPAY ==
--- NOTE | 2024-12-29 14:41 | MHC.OFFVIS ---
Intake Visit Reasons: 4 M PSA Intake Note: Patient is present for 4M/PSA Urology Medication:FINASTERIDE Antibiotic Allergy:NONE Blood Thinner:NONE Mysql Database Developer Required: No Allergies lisinopril [LISINOPRIL] Allergy (Unknown, Verified 12/29/24 14:44) cough HPI Comments Details: Won is a pleasant male. He is a patient of Dr. Kent. 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 01/06 PSA 6, 04/07 5.0, 08/08 6.4 9%, 12/07 8.3 Imaging - 01/07 MRI - no evidence of lesions within prostate, 45gm Genetics indicate active surveillance group Treatment options including robotic prostatectomy discussed previously Continue Q 4 month surveillance Plan - 4 months with targeted biopsy plan Prostate cancer - 04/0623 Grade Group [address] Parson for rising PSA 03/07 PSA at diagnosis 5.7, free% 15 No family history TRUS - 45gm, T1c [place] score: 3+3=6 - Grade group: 1 Number cores positive: 4 Total number of cores: 12 - LBL 10%, LML 5%, RML 10%, KARLA 5% Periprostatic fat inv.: Not identified Seminal vesicle inv.: Not identified Perineural inv.: Not identified LVI:Not identified Staging - 05/07 Genetics active surveillance - Prolaris - 05/07 MRI - 10mm lesion right anterior mid transition zone PiRADS 3, 6 mm left posterolateral mid peripheral zone PI-RADS 4 PFSH Medical History Prostate cancer PSA elevation Anxiety and depression Fatty liver GERD (gastroesophageal reflux disease) Obesity (BMI 30-39.9) Vitamin D deficiency Obstructive sleep apnea Hypercholesterolemia Hypertension Impaired fasting glucose Alcohol abuse Surgical History History of prostate biopsy History of esophagogastroduodenoscopy (EGD) H/O nasal septoplasty Family History Father Alcoholism Breast cancer Mother Hypertension Hypercholesteremia Brother Hypercholesteremia Gout Maternal Grandfather Throat cancer Maternal Grandmother Hypertension Maternal Uncle Throat cancer Colon cancer Social History Household Members Other:: - 1 son Housing: House Alcohol intake: former Comment: 2019 last drink Patient Tobacco Use Status: Former Tobacco user Tobacco use type: Cigar Years Smoked: quit 2020 e-Cigarette/Vaping Use: Never Used Second Hand Smoke Exposure: No service: Yes Current occupational status: employed Current occupation: [employer] Cognitive needs: No Hearing needs: No Vision needs: Yes Review of Systems Const Denies chills and Denies fever(s) Card Reports no additional complaints and Denies syncope Resp Denies cough GI Denies abdominal pain and Denies heartburn Reports as per HPI and Denies change in libido Neuro Denies syncope Psych Denies change in libido Endo Denies change in libido Physical Exam Const General: cooperative, healthy appearing, comfortable and no acute distress Orientation/consciousness: patient oriented x3 HEENT Face and sinus: Yes normal facial exam Mouth: moist mucous membranes Neck Neck: Yes normal visual inspection, Yes full ROM and Yes trachea midline Chest Chest palpation & inspection: normal inspection of the chest Resp Effort & Inspection: normal respiratory effort, able to speak in complete sentences and no respiratory distress GI Inspection: Yes normal to inspection Back/Spine/Pelvis Cervical Spine: normal cervical lordosis Thoracic/Lumbar Spine: thoracic and lumbar spine normal to inspection Skin General skin exam: no rashes or lesions noted Neuro General: patient oriented x3, gait normal, tone normal and moves all extremities Extrem General: Yes normal to inspection and Yes capillary refill normal Assessment & Plan Assessment & Plan (1) Prostatic adenocarcinoma: Comment: 03/07 - Grade Group 1 Prolaris Active Surveillance Code(s): C61 - Malignant neoplasm of prostate Category: Medical Plan Four month follow-up PSA Orders: Orders PSA,Total (Free>4and<10) 4 Months C61 - Malignant neoplasm of prostate Patient Instructions: This note is constructed using voice recognition software. While every effort has been made to ensure accuracy gum machine operator errors may have been included. Imaging studies, laboratory and physical exam results were discussed and reviewed in detail. No major barriers to patient understanding were identified. An opportunity to ask questions regarding the treatment plan was provided. All questions were answered. The patient expressed understanding and agreement with the above treatment plan. The patient is aware they should contact our office by phone for worsening of their current condition or the appearance of new urologic symptoms. Compliance is encouraged with any medications and followup testing that is ordered. It is a privilege to participate in the urologic care of your patient. If you have any questions or concerns regarding treatment for the above conditions, or other urologic issues, please do not hesitate to contact me. The office telephone contact is [phone]. Sincerely, Dr Mikal Parson MD, [facility] - Urology Compassionate Specialist Care for the Genitourinary System Coding Level of Care Code Est Pt Level 3 (25912) Complex EM visit Add On G2211 Diagnoses Prostatic adenocarcinoma C61
--- OUTSIDE RECORDS SUMMARY | 2024-12-29 17:21 | XMS_ITS | Clinical Summary ---
Author Organization [facility] Address [address] [place] [address] Care Team Providers Care Radiotelegraph Operator Name Role Phone Pcp, No Primary Care Provider Unavailabl e Allergies Active Allergy Reactions Criticality Noted Date Comments Lisinopril Cough Low 05/22/2020 Medications losartan (COZAAR) 50 MG tablet Take 50 [...] Recorded Sex Assigned at Not on file Legal Sex Male 10:04 AM EDT Gender Identity Not on file Sexual Orientation [...] on patient's age to complete this topic [facility] Radiotelegraph Operator Relationship Specialty Start Date End Date Pcp, No PCP - General General Medicine 09/15/19
--- OUTSIDE RECORDS SUMMARY | 2024-12-29 17:22 | XMS_ITS | Continuity of Care Document ---
Author Name [facility] Organization [facility] Care Team Providers Care Reporting Consultant Name Role Phone [facility] Unavailable Unavailable Immunizations Combined list of available immunizations from the Department of Defense and Veterans Affairs facilities. Immunization Series Date Given Administered By Site Reaction Lot Number CVX Code Drug Power Tong Operator Status Comments Source COVID Vaccine Moderna 2021 [id number] 207 complet ed COVID Vaccine Moderna 10/20/21 Given Ambulat ory Pharmac y influenza, injectable, quadrivalent- pf 2020 [id number] Egnyte[employer]li ne complet ed influenza , injectabl e, quadrival ent-pf 06/07/21 Given Ambulat ory Pharmac y COVID Vaccine Moderna 2020 [id number] 207 complet ed COVID Vaccine Moderna 01/04/21 Given Ambulat ory Pharmac y COVID Vaccine Moderna 2020 [id number] 207 complet ed COVID Vaccine Moderna 11/22/20 Given Ambulat ory Pharmac y influenza, injectable, quadrivalent 2019 [id number] 158 Seqirus complet ed influenza , injectabl e, quadrival ent 06/27/20 Given Ambulat ory Pharmac y influenza, injectable, quadrivalent- pf 2018 [id number] 150 Seqirus complet ed influenza , injectabl e, quadrival ent-pf 06/19/19 Given Ambulat ory Pharmac y influenza, injectable, quadrivalent 2017 [id number] 158 Seqirus complet ed influenza , injectabl e, quadrival ent 07/08/18 Given Ambulat ory Pharmac y Influenza, inj, MDCK, quadrivalent- pf 2016 [id number] 171 Seqirus complet ed Influenza , inj, MDCK, quadrival ent-pf 07/18/17 Given Ambulat ory Pharmac y influenza, seasonal, injectable-pf 2015 [id number] 140 Seqirus complet ed influenza , seasonal, injectabl e-pf 06/29/16 Given Ambulat ory Pharmac y influenza, seasonal, injectable 2014 [id number] 141 CSL Behring complet ed influenza , seasonal, injectabl e 06/17/15 Given Ambulat ory Pharmac y influenza, seasonal, injectable 2013 [id number] 141 [employer]ical comple t ed influenza , seasonal, injectabl e 06/18/14 Given Ambulat ory Pharmac y influenza, seasonal, injectable 2012 [id number] 141 CSL Behring complet ed influenza , seasonal, injectabl e 07/18/13 Given Ambulat ory Pharmac y influenza virus vaccine, live 2011 [id number] 111 [place] comple t ed influenza virus vaccine, live 06/27/12 Given Ambulat ory Pharmac y tetanus, diphtheria, acellular pertu is 2011 [id number] 115 sanofi pasteur complet ed tetanus, diphtheri a, acellular pertussis 06/27/12 Given Ambulat ory Pharmac y influenza, seasonal, injectable 2010 [id number] 141 sanofi pasteur complet ed influenza , seasonal, injectabl e 07/20/11 Given Ambulat ory Pharmac y hepatitis B adult vaccine 2010 [id number] 43 GlaxoSmithKli ne complet ed hepatitis B adult vaccine 12/15/10 Given Ambulat ory Pharmac y influenza virus vaccine,split 2009 [id number] 15 sanofi pasteur complet ed influenza virus vaccine,s plit 07/05/10 Given Ambulat ory Pharmac y hepatitis B adult vaccine 2009 43 complet ed hepatitis B adult vaccine 07/05/10 Given Ambulat ory Pharmac y vaccinia (smallpox) vaccine 2009 VV04-00 3A 75 Verisante Technology complet ed vaccinia (smallpox ) vaccine 06/11/10 Given Ambulat ory Pharmac y vaccinia (smallpox) vaccine 2009 VV04-00 [id number] 75 Verisante Technology complet ed vaccinia (smallpox ) vaccine 06/05/10 Given Ambulat ory Pharmac y anthrax vaccine 2009 [id number] 24 Emergent Biosolutions complet ed anthrax vaccine [...] Pharmac y Novel influenza-H1N 1-09, injectable 2009 [id number] 127 Novartis Pharmaceutica ls complet ed Novel influenza -B4V8-43, injectabl e 10/21/09 Given Ambulat ory Pharmac y influenza virus vaccine, live 2008 [id number] 111 Medimmune Inc comple t ed influenza virus vaccine, live 06/17/09 Given Ambulat ory Pharmac y influenza virus vaccine, live 2007 [id number] 111 Med[employer] Inc comple t ed influenza virus vaccine, live 06/19/08 Given Ambulat ory Pharmac y influenza virus vaccine, live 2006 [id number] 111 Med[employer] Inc comple t ed influenza virus vaccine, live 08/15/07 Given Ambulat ory Pharmac y influenza virus vaccine,split 2005 [id number] 15 sanofi pasteur complet ed influenza virus vaccine,s plit 08/02/06 Given Ambulat ory Pharmac y influenza virus vaccine,split 2004 [id number] 15 sanofi pasteur complet ed influenza virus vaccine,s plit 08/17/05 Given Ambulat ory Pharmac y influenza virus vaccine, live 2004 [id number] 111 Medimmune Inc comple t ed influenza virus vaccine, live 09/22/04 Given Ambulat ory Pharmac y anthrax vaccine 2003 [id number] 24 [employer] complet ed anthrax vaccine 06/30/04 Given Ambulat ory Pharmac y tetanus-dipht h toxoids (Td) adult/adol 2003 [id number] 09 sanofi pasteur complet ed tetanus-d iphth toxoids (Td) adult/ado l 05/05/04 Given Ambulat ory Pharmac y anthrax vaccine 2003 [id number] 24 [employer] complet ed anthrax vaccine 12/17/03 Given Ambulat ory Pharmac y tuberculin purified protein derivative 2002 [id number] 96 sanofi pasteur complet ed tuberculi n purified protein derivativ e 06/18/03 Given Ambulat ory Pharmac y influenza virus vaccine,split 2002 [id number] 15 [facility] complet ed influenza virus vaccine,s plit 06/18/03 Given Ambulat ory Pharmac y influenza virus vaccine, whole virus 2002 [id number] 16 [facility] complet ed influenza virus vaccine, whole virus 06/18/03 Given Ambulat ory Pharmac y typhoid Vi capsular polysaccharid e vac 2002 [id number] 101 sanofi pasteur complet ed typhoid Vi capsular polysacch aride vac 06/18/03 Given Ambulat ory Pharmac y anthrax vaccine 2002 [id number] 24 [employer] complet ed anthrax vaccine 05/28/03 Given Ambulat ory Pharmac y anthrax vaccine 2002 [id number] 24 [employer] complet ed anthrax vaccine 10/16/02 Given Ambulat ory Pharmac y anthrax vaccine 2002 [id number] 24 [employer] complet ed anthrax vaccine 09/20/02 Given Ambulat ory Pharmac y anthrax vaccine 2001 [id number] 24 [employer] complet ed anthrax vaccine 09/06/02 Given Ambulat ory Pharmac y tuberculin purified protein derivative 2001 [id number] 96 sanofi pasteur complet ed tuberculi n purified protein derivativ e 07/17/02 Given Ambulat ory Pharmac y influenza virus vaccine,split 2001 [id number] 15 sanofi pasteur complet ed influenza virus vaccine,s plit 07/17/02 Given Ambulat ory Pharmac y influenza virus vaccine, whole virus 2001 [id number] 16 sanofi pasteur complet ed influenza virus vaccine, whole virus 07/17/02 Given Ambulat ory Pharmac y tuberculin purified protein derivative 2000 [id number] 96 sanofi pasteur complet ed tuberculi n purified protein derivativ e 07/18/01 Given Ambulat ory Pharmac y influenza virus vaccine,split 2000 [id number] 15 sanofi pasteur complet ed influenza virus vaccine,s plit 07/18/01 Given Ambulat ory Pharmac y influenza virus vaccine, whole virus 2000 [id number] 16 sanofi pasteur complet ed influenza virus vaccine, whole virus 07/18/01 Given Ambulat ory Pharmac y measles/mumps /rubella virus vaccine 2000 03 Merck & Company Inc complet ed measles/m umps/rube lla virus vaccine 05/09/01 Given Ambulat ory Pharmac y tuberculin purified protein derivative 2000 [id number] 96 complet ed tuberculi n purified protein derivativ e 05/09/01 Given Ambulat ory Pharmac y meningococcal polysaccharid e (MPSV4) 2000 32 complet ed meningoco ccal polysacch aride (MPSV4) 05/09/01 Given Ambulat ory Pharmac y typhoid vaccine, parenteral 2000 [id number] 41 sanofi pasteur complet ed typhoid vaccine, parentera l 01/04/01 Given Ambulat ory Pharmac y influenza virus vaccine,split 2000 [id number] 15 [facility] complet ed influenza virus vaccine,s plit 09/20/00 Given Ambulat ory Pharmac y influenza virus vaccine, whole virus 2000 [id number] 16 [facility] complet ed influenza virus vaccine, whole virus 09/20/00 Given Ambulat ory Pharmac y hepatitis A adult vaccine 1998 [id number] 52 Merck & Company Inc complet ed hepatitis A adult vaccine 08/18/99 Given Ambulat ory Pharmac y influenza virus vaccine, whole virus [id number] 16 [facility] complet ed influenza virus vaccine, whole virus 07/21/99 Given Ambulat ory Pharmac y influenza virus vaccine,split [id number] 15 [facility] complet ed influenza virus vaccine,s plit 07/21/99 Given Ambulat ory Pharmac y hepatitis A adult vaccine 1998 52 Unknown complet ed hepatitis A adult vaccine 01/13/99 Given Ambulat ory Pharmac y influenza virus vaccine, whole virus 19970113 [id number] 16 sanofi pasteur complet ed influenza virus vaccine, whole virus 06/17/98 Given Ambulat ory Pharmac y influenza virus vaccine,split 19973862 [id number] 15 sanofi pasteur complet ed influenza virus [...] Prevention' s HIV diagnostic algorithm. Refer to [facility] Lab Guide for additional information : [email or web address]/ [email or web address] [email or web address] x Testing performed by Gricelda fair 5600A-U [facility] EPILAB Miscellan eous Sendouts Repository Sample Received (12/16/23 1:30 PM) 12/15 N 5600A-U [facility] EPILAB Procedures Combined list of: 1) [facility], not all [place] non-surgical procedures are included; 2) All procedures [...] Plan No data available for this section 12/29/2024 Ambulatory Pharmacy Functional Status Combined list of recent functional and cognitive assessments recorded at Department of Defense and Veterans Affairs ([place] Functional [place] Measurement (FIM) Scale: 1 = Total Assistance (Subject = 0% +), 2 = Maximal Assistance (Subject = 25% +), 3 = Moderate Assistance (Subject = 50% +), 4 = Minimal Assistance (Subject = 75% +), 5 = Supervision, 6 = Modified [place] (Device), 7 = Complete [place] (Timely, Safely). Assessment Date/Time Source Assessment Type Assessment Skill Assessment Score Assessment Details No data available for this section
--- OUTSIDE RECORDS SUMMARY | 2024-12-29 17:22 | XMS_ITS | Clinical Summary ---
Author Organization [facility] Address [address] [address] Phone Care Team Providers Care Steam Shovel Operating Engineer Name Role Phone Jamaica Kent MD Primary Care Provider [phone] Allergies Active Allergy Reactions Criticality Noted Date [...] Medical Devices Not on file Care Teams Steam Shovel Operating Engineer Relationship Specialty Start Date End Date Jamaica Kent MD [address] [facility] [place] [address] PCP - General Internal Medicine 09/01/19 Additional Source Comments The information contained in this document represents components of the legal health record. It is not the complete legal health record.[facility]
== END 2024-12-29 15:41 | disposition home or self-care (01) ==
LOC: HO.HUSH 14:37
PROVIDERS: PCP Internal Medicine; Visit Provider Urology
DX: C61 Malignant neoplasm of prostate (principal)
CPT/HCPCS: 99213

== ENCOUNTER → 2024-12-29 15:51 | Outpatient (REF) | payer BC, SELFPAY ==
--- OUTSIDE RECORDS SUMMARY | 2024-12-29 18:10 | XMS_ITS | Clinical Summary ---
Author Organization [facility] Address [address] [address] Phone Care Team Providers Care Supervisor Belt And Link Assembly Name Role Phone Jamaica Kent MD Primary Care Provider [phone] Allergies Active Allergy Reactions Criticality Noted Date [...] Medical Devices Not on file Care Teams Supervisor Belt And Link Assembly Relationship Specialty Start Date End Date Jamaica Kent MD [address] [place] [address] PCP - General Internal Medicine 09/01/19 Additional Source Comments The information contained in this document represents components of the legal health record. It is not the complete legal health record.[facility]
--- OUTSIDE RECORDS SUMMARY | 2024-12-29 18:10 | XMS_ITS | Clinical Summary ---
Author Organization [facility] Address [address] [place] [address] Care Team Providers Care Ticker Installer Name Role Phone Pcp, No Primary Care [...] patient's age to complete this topic [facility] Care Teams Ticker Installer Relationship Specialty Start Date End Date Pcp, No PCP - General General Medicine 09/15/19
--- OUTSIDE RECORDS SUMMARY | 2024-12-29 18:10 | XMS_ITS | Continuity of Care Document ---
Author Name [facility] Organization [facility] Care Team Providers Care Glass Cut Off Tender Name Role Phone [facility] Unavailable Unavailable Immunizations Combined list of available immunizations from the Department of Defense and Veterans Affairs facilities. Immunization Series Date Given Administered By Site Reaction Lot Number CVX Code Drug Car Repossessor Status Comments Source COVID Vaccine Moderna 2021 [id number] 207 complet ed COVID Vaccine Moderna 10/20/21 Given Ambulat ory Pharmac y influenza, injectable, quadrivalent- pf 2020 [id number] 150 [place] complet ed influenza , injectabl e, quadrival ent-pf 06/07/21 Given Ambulat ory Pharmac y COVID Vaccine Moderna 2020 [id number] 207 complet ed COVID Vaccine Moderna 01/04/21 Given Ambulat ory Pharmac y COVID Vaccine Moderna 2020 [id number] 207 complet ed COVID Vaccine Moderna 11/22/20 Given Ambulat ory Pharmac y influenza, injectable, quadrivalent 2019 [id number] 158 Seqirus complet ed influenza , injectabl e, quadrival ent 06/27/20 Given Ambulat ory Pharmac y influenza, injectable, quadrivalent- pf 2018 [id number] 150 Seqirus complet ed influenza , injectabl e, quadrival ent-pf 06/19/19 Given Ambulat ory Pharmac y influenza, injectable, quadrivalent 2017 [id number] 158 Seqirus complet ed influenza , injectabl e, quadrival ent 07/08/18 Given Ambulat ory Pharmac y Influenza, inj, MDCK, quadrivalent- pf 2016 [id number] 171 Seqirus complet ed Influenza , inj, MDCK, quadrival ent-pf 07/18/17 Given Ambulat ory Pharmac y influenza, seasonal, injectable-pf 2015 [id number] 140 Seqirus complet ed influenza , seasonal, injectabl e-pf 06/29/16 Given Ambulat ory Pharmac y influenza, seasonal, injectable 2014 [id number] 141 CSL Behring complet ed influenza , seasonal, injectabl e 06/17/15 Given Ambulat ory Pharmac y influenza, seasonal, injectable 2013 [id number] 141 [employer] comple t ed influenza , seasonal, injectabl e 06/18/14 Given Ambulat ory Pharmac y influenza, seasonal, injectable 2012 [id number] [id number] 141 CSL Behring complet ed influenza , seasonal, injectabl e 07/18/13 Given Ambulat ory Pharmac y influenza virus vaccine, live 2011 [id number] 111 [place] comple t ed influenza virus vaccine, live 06/27/12 Given Ambulat ory Pharmac y tetanus, diphtheria, acellular pertu is 2011 [id number] 115 sanofi pasteur complet ed tetanus, diphtheri a, acellular pertussis 06/27/12 Given Ambulat ory Pharmac y influenza, seasonal, injectable 2010 [id number] 141 sanofi pasteur complet ed influenza , seasonal, injectabl e 07/20/11 Given Ambulat ory Pharmac y hepatitis B adult vaccine 2010 [id number] 43 GlaxoSmithKli ne complet ed hepatitis B adult vaccine 12/15/10 Given Ambulat ory Pharmac y influenza virus vaccine,split 2009 [id number] 15 sanofi pasteur complet ed influenza virus vaccine,s plit 07/05/10 Given Ambulat ory Pharmac y hepatitis B adult vaccine 2009 43 complet ed hepatitis B adult vaccine 07/05/10 Given Ambulat ory Pharmac y vaccinia (smallpox) vaccine 2009 VV04-00 3A 75 [employer]APE complet ed vaccinia (smallpox ) vaccine 06/11/10 Given Ambulat ory Pharmac y vaccinia (smallpox) vaccine 2009 VV04-00 3A 75 SHAPE complet ed vaccinia (smallpox ) vaccine 06/05/10 Given Ambulat ory Pharmac y anthrax vaccine 2009 [id number] 24 Emergent [employer] complet ed anthrax vaccine [...] Pharmac y Novel influenza-H1N 1-09, injectable 2009 [id number] 127 Novartis Pharmaceutica ls complet ed Novel influenza -D3I6-72, injectabl e 10/21/09 Given Ambulat ory Pharmac y influenza virus vaccine, live 2008 [id number] 111 Medimmune Inc comple t ed influenza virus vaccine, live 06/17/09 Given Ambulat ory Pharmac y influenza virus vaccine, live 2007 [id number] 111 Med[employer] Inc comple t ed influenza virus vaccine, live 06/19/08 Given Ambulat ory Pharmac y influenza virus vaccine, live 2006 [id number] 111 [employer] Inc comple t ed influenza virus vaccine, live 08/15/07 Given Ambulat ory Pharmac y influenza virus vaccine,split 2005 [id number] 15 sanofi pasteur complet ed influenza virus vaccine,s plit 08/02/06 Given Ambulat ory Pharmac y influenza virus vaccine,split 2004 [id number] 15 sanofi pasteur complet ed influenza virus vaccine,s plit 08/17/05 Given Ambulat ory Pharmac y influenza virus vaccine, live 2004 [id number] 111 Med[employer] Inc comple t ed influenza virus vaccine, live 09/22/04 Given Ambulat ory Pharmac y anthrax vaccine 2003 [id number] 24 [employer] complet ed anthrax vaccine 06/30/04 Given Ambulat ory Pharmac y tetanus-dipht h toxoids (Td) adult/adol 2003 [id number] 09 sanofi pasteur complet ed tetanus-d iphth toxoids (Td) adult/ado l 05/05/04 Given Ambulat ory Pharmac y anthrax vaccine 2003 [id number] 24 [employer] complet ed anthrax vaccine 12/17/03 Given Ambulat ory Pharmac y tuberculin purified protein derivative 2002 [id number] 96 sanofi pasteur complet ed tuberculi n purified protein derivativ e 06/18/03 Given Ambulat ory Pharmac y influenza virus vaccine,split 2002 [id number] 15 [facility] complet ed influenza virus vaccine,s plit 06/18/03 Given Ambulat ory Pharmac y influenza virus vaccine, whole virus 2002 [id number] 16 [facility] complet ed influenza virus vaccine, whole virus 06/18/03 Given Ambulat ory Pharmac y typhoid Vi capsular polysaccharid e vac 2002 [id number] 101 sanofi pasteur complet ed typhoid Vi capsular polysacch aride vac 06/18/03 Given Ambulat ory Pharmac y anthrax vaccine 2002 [id number] 24 [employer] complet ed anthrax vaccine 05/28/03 Given Ambulat ory Pharmac y anthrax vaccine 2002 [id number] 24 [employer] complet ed anthrax vaccine 10/16/02 Given Ambulat ory Pharmac y anthrax vaccine 2002 [id number] 24 [employer] complet ed anthrax vaccine 09/20/02 Given Ambulat ory Pharmac y anthrax vaccine 2001 [id number] 24 [employer] complet ed anthrax vaccine 09/06/02 Given Ambulat ory Pharmac y tuberculin purified protein derivative 2001 [id number] 96 sanofi pasteur complet ed tuberculi n purified protein derivativ e 07/17/02 Given Ambulat ory Pharmac y influenza virus vaccine,split 2001 [id number] 15 sanofi pasteur complet ed influenza virus vaccine,s plit 07/17/02 Given Ambulat ory Pharmac y influenza virus vaccine, whole virus 2001 [id number] 16 sanofi pasteur complet ed influenza virus vaccine, whole virus 07/17/02 Given Ambulat ory Pharmac y tuberculin purified protein derivative 2000 [id number] 96 sanofi pasteur complet ed tuberculi n purified protein derivativ e 07/18/01 Given Ambulat ory Pharmac y influenza virus vaccine,split 2000 [id number] 15 sanofi pasteur complet ed influenza virus vaccine,s plit 07/18/01 Given Ambulat ory Pharmac y influenza virus vaccine, whole virus 2000 [id number] 16 sanofi pasteur complet ed influenza virus vaccine, whole virus 07/18/01 Given Ambulat ory Pharmac y measles/mumps /rubella virus vaccine 2000 03 Merck & Company Inc complet ed measles/m umps/rube lla virus vaccine 05/09/01 Given Ambulat ory Pharmac y tuberculin purified protein derivative 2000 [id number] 96 complet ed tuberculi n purified protein derivativ e 05/09/01 Given Ambulat ory Pharmac y meningococcal polysaccharid e (MPSV4) 2000 32 complet ed meningoco ccal polysacch aride (MPSV4) 05/09/01 Given Ambulat ory Pharmac y typhoid vaccine, parenteral 2000 S7831-5 41 sanofi pasteur complet ed typhoid vaccine, parentera l 01/04/01 Given Ambulat ory Pharmac y influenza virus vaccine,split 2000 [id number] 15 [facility] complet ed influenza virus vaccine,s plit 09/20/00 Given Ambulat ory Pharmac y influenza virus vaccine, whole virus 2000 [id number] 16 [facility] complet ed influenza virus vaccine, whole virus 09/20/00 Given Ambulat ory Pharmac y hepatitis A adult vaccine 1998 [id number] 52 Merck & Company Inc complet ed hepatitis A adult vaccine 08/18/99 Given Ambulat ory Pharmac y influenza virus vaccine, whole virus [id number] 16 [facility] complet ed influenza virus vaccine, whole virus 07/21/99 Given Ambulat ory Pharmac y influenza virus vaccine,split 19986401 [id number] 15 [facility] complet ed influenza virus vaccine,s plit 07/21/99 Given Ambulat ory Pharmac y hepatitis A adult vaccine 1998 52 Unknown complet ed hepatitis A adult vaccine 01/13/99 Given Ambulat ory Pharmac y influenza virus vaccine, whole virus 19979546 [id number] 16 sanofi pasteur complet ed influenza virus vaccine, whole virus 06/17/98 Given Ambulat ory Pharmac y influenza virus vaccine,split 19971500 [id number] 15 sanofi pasteur complet ed influenza virus [...] Prevention' s HIV diagnostic algorithm. Refer to [facility] Lab Guide for additional information : [email or web address]/ [email or web address] [email or web address] x Testing performed by Gricelda fair 5600A-U [facility] EPIL[facility] Miscellan eous Sendouts Repository Sample Received (12/16/23 1:30 PM) 12/15 N 5600A-U [facility] EPILAB Procedures Combined list of: 1) [facility], not all [place] non-surgical procedures are included; 2) All procedures [...] at Department of Defense and Veterans Affairs ([place] Functional [place] Measurement (FIM) Scale: 1 = Total Assistance (Subject = 0% +), 2 = Maximal Assistance (Subject = 25% +), 3 = Moderate Assistance (Subject = 50% +), 4 = Minimal Assistance (Subject = 75% +), 5 = Supervision, 6 = Modified [place] (Device), 7 = Complete [place] (Timely, Safely). Assessment Date/Time Source Assessment Type Assessment Skill Assessment Score Assessment Details No data available for this section
== END ==
LOC: HO.SL 15:51
PROVIDERS: PCP Internal Medicine; Visit Provider Internal Medicine
DX: G47.33 Obstructive sleep apnea (adult) (pediatric) (principal)
CPT/HCPCS: 95806

== ENCOUNTER → 2024-12-29 15:58 | Outpatient (BNV) | payer BC, SELFPAY | PROVIDERS: PCP Internal Medicine; Visit Provider Internal Medicine | DX: G47.33 Obstructive sleep apnea (adult) (pediatric) (principal) | CPT/HCPCS: 95806 ==

== ENCOUNTER 2025-05-10 09:17 | Outpatient (REF) | payer BC, SELFPAY ==
--- OUTSIDE RECORDS SUMMARY | 2025-05-10 09:40 | XMS_ITS | Continuity of Care Document ---
Author Name [facility] Organization [facility] Care Team Providers Care Invisible Braces Orthodontist Name Role Phone [facility] Unavailable Unavailable Problems Combined list of problems from Department of Defense and Veterans Affairs facilities. It does not include entries that were removed or entered in error. Problem Status Onset Date Problem Type Date of Resolution Comments Source HYPERTENSION (SYSTEMIC) Active Condition DoD visit for: administrative purpose Inactive Condition DoD HYPERLIPIDEMIA Active Condition DoD Blood Pressure Isolated Elevated Inactive Condition DoD UPPER RESPIRATORY INFECTION Inactive Condition DoD Immunizations Combined list of available immunizations from the Department of Defense and Veterans Affairs facilities. Immunization Series Date Given Administered By Site Reaction Lot Number CVX Code Drug Fiscal Economist Status Comments Source Influenza, injectable, quadrivalent, preservative free 0 2021 [id number] Keystone Technology (SKB) complet ed Influenza , injectabl e, quadrival ent, preservat wale free DoD tetanus toxoid, reduced diphtheria toxoid, and acellular pertu is vaccine, adsorbed 2 2021 [id number] 115 Sanofi Pasteur (PMC) complet ed tetanus toxoid, reduced diphtheri a toxoid, and acellular pertussis vaccine, adsorbed DoD COVID Vaccine Moderna 2021 [id number] complet ed COVID Vaccine Moderna 10/20/21 Given Ambulat ory Pharmac y SARS-COV-2 (COVID-19) vaccine, mRNA, spike protein, LNP, preservative free, 100 mcg or 50 mcg dose 3 2021 [id number] 207 Moderna Authentic[employer], Inc. (MOD) complet ed SARS-COV- 2 (COVID-19 ) vaccine, mRNA, spike protein, LNP, preservat wale free, 100 mcg or 50 mcg dose DoD influenza, injectable, quadrivalent- pf 2020 [id number] 150 GlaxoSmithKli ne complet ed influenza , injectabl e, quadrival ent-pf 06/07/21 Given Ambulat ory Pharmac y Influenza, injectable, quadrivalent, preservative free 1 2020 [id number] 150 [facility] (SKB) complet ed Influenza , injectabl e, quadrival ent, preservat wale free DoD COVID Vaccine Moderna 2020 [id number] 207 complet ed COVID Vaccine Moderna 01/04/21 Given Ambulat ory Pharmac y SARS-COV-2 (COVID-19) vaccine, mRNA, spike protein, LNP, preservative free, 100 mcg or 50 mcg dose 2 2020 [id number] 207 Moderna Authentic8, Inc. (MOD) complet ed SARS-COV- 2 (COVID-19 ) vaccine, mRNA, spike protein, LNP, preservat wale free, 100 mcg or 50 mcg dose DoD COVID Vaccine Moderna 2020 [id number] complet ed COVID Vaccine Moderna 11/22/20 Given Ambulat ory Pharmac y SARS-COV-2 (COVID-19) vaccine, mRNA, spike protein, LNP, preservative free, 100 mcg or 50 mcg dose 1 2020 [id number] 207 Moderna Authentic[employer], Inc. (MOD) complet ed SARS-COV- 2 (COVID-19 ) vaccine, mRNA, spike protein, LNP, preservat wale free, 100 mcg or 50 mcg dose DoD influenza, injectable, quadrivalent 2019 [id number] 158 Seqirus complet ed influenza , injectabl e, quadrival ent 06/27/20 Given Ambulat ory Pharmac y influenza, injectable, quadrivalent, contains preservative 1 2019 [id number] 158 Seqirus (SEQ) complet ed influenza , injectabl e, quadrival ent, contains preservat wale DoD influenza, injectable, quadrivalent- pf 2018 [id number] 520 150 Se[employer]irus complet ed influenza , injectabl e, quadrival ent-pf 06/19/19 Given Ambulat ory Pharmac y Influenza, injectable, quadrivalent, preservative free 23 2018 [id number] 150 Seqirus (SEQ) complet ed Influenza , injectabl e, quadrival ent, preservat wale free DoD influenza, injectable, quadrivalent 2017 [id number] 158 [employer] complet ed influenza , injectabl e, quadrival ent 07/08/18 Given Ambulat ory Pharmac y influenza, injectable, quadrivalent, contains preservative 22 2017 [id number] 158 Seqirus (SEQ) comple t ed influenza [...] quadrival ent DoD influenza, seasonal, injectable-pf 2015 [id number] 140 Se[employer]irus complet ed influenza , seasonal, injectabl e-pf 06/29/16 Given Ambulat ory Pharmac y Influenza, seasonal, injectable, preservative free 20 2015 [id number] 140 Seqirus (SEQ) comple t ed Influenza , seasonal, injectabl e, preservat wale free DoD influenza, seasonal, injectable 2014 [id number] 141 CSL Behring complet ed influenza , seasonal, injectabl e 06/17/15 Given Ambulat ory Pharmac y Influenza, seasonal, injectable 1 2014 [id number] 141 CS [employer] Inc. (CSL) complet ed Influenza , seasonal, injectabl e DoD influenza, seasonal, injectable 2013 [id number] 141 ID Biomedical comple t ed influenza , seasonal, injectabl e 06/18/14 Given Ambulat ory Pharmac y Influenza, seasonal, injectable 25 2013 [id number] 141 (IDB) complet ed Influenza , seasonal, injectabl e DoD influenza, seasonal, injectable 2012 [id number] 141 CSL Behring complet ed influenza , seasonal, injectabl e 07/18/13 Given Ambulat ory Pharmac y Influenza, seasonal, injectable 1 2012 [id number] 141 [employer]. (CSL) complet ed Influenza , seasonal, injectabl e DoD influenza virus vaccine, live 2011 [id number] 111 [employer] [facility] comple t ed influenza virus vaccine, live 06/27/12 Given Ambulat ory Pharmac y tetanus, diphtheria, acellular pertu is 2011 [id number] 115 sanofi pasteur complet ed tetanus, diphtheri a, acellular pertussis 06/27/12 Given Ambulat ory Pharmac y influenza virus vaccine, live, attenuated, for intranasal use 23 2011 [id number] 111 ABA English. (MED) complet ed influenza virus vaccine, live, attenuate d, for intranasa l use DoD tetanus toxoid, reduced diphtheria toxoid, and acellular pertu is vaccine, adsorbed 0 2011 [id number] 115 Sanofi Pasteur (PMC) complet ed tetanus toxoid, reduced diphtheri a toxoid, and acellular pertussis vaccine, adsorbed DoD influenza, seasonal, injectable 2010 [id number] 141 sanofi pasteur complet ed influenza , seasonal, injectabl e 07/20/11 Given Ambulat ory Pharmac y Influenza, seasonal, injectable 0 2010 [id number] 141 Sanofi Pasteur (PMC) complet ed Influenza , seasonal, injectabl e DoD hepatitis B adult vaccine 2010 [id number] 43 GlaxoSmithKli ne complet ed hepatitis B adult vaccine 12/15/10 Given Ambulat ory Pharmac y hepatitis B vaccine, adult dosage 3 2010 [id number] [id number] 43 [facility] (SKB) complet ed hepatitis B vaccine, adult dosage DoD influenza virus vaccine,split 2009 [id number] 15 sanofi pasteur complet ed influenza virus vaccine,s plit 07/05/10 Given Ambulat ory Pharmac y hepatitis B adult vaccine 2009 43 complet ed hepatitis B adult vaccine 07/05/10 Given Ambulat ory Pharmac y influenza virus vaccine, split virus (incl. purified surface antigen)-reti red CODE 21 2009 [id number] 15 Sanofi Pasteur (PMC) complet ed influenza virus vaccine, split virus (incl. purified surface antigen)- retired CODE DoD influenza virus vaccine, whole virus 0 2009 [id number] 16 Sanofi Pasteur (PMC) complet ed influenza virus vaccine, whole virus DoD hepatitis B vaccine, adult dosage 2 2009 43 () complet ed hepatitis B vaccine, adult dosage DoD vaccinia (smallpox) vaccine 2009 VV04-00 3A 75 [employer] complet ed vaccinia (smallpox ) vaccine 06/11/10 Given Ambulat ory Pharmac y vaccinia (smallpox) vaccine 1 2009 VV04-00 3A 75 [facility] complet ed vaccinia (smallpox ) vaccine DoD vaccinia (smallpox) vaccine 2009 VV04-00 3A 75 [employer]UP complet ed vaccinia (smallpox ) vaccine 06/05/10 Given Ambulat ory Pharmac y vaccinia (smallpox) vaccine 1 2009 VV04-00 3A 75 [facility] complet ed vaccinia (smallpox ) vaccine DoD anthrax vaccine 2009 [id number] 24 [employer] complet ed anthrax vaccine 05/26/10 Given Ambulat ory Pharmac y hepatitis B adult vaccine 2009 [id number] [id number] 43 GlaxoSmithKli pa complet ed hepatitis B adult vaccine 05/26/10 Given Ambulat ory Pharmac y typhoid Vi capsular polysaccharid e vac 2009 [id number] 101 sanofi pasteur complet ed typhoid Vi capsular polysacch aride vac 05/26/10 Given Ambulat ory Pharmac y anthrax vaccine 6 2009 [id number] 24 [employer] [place] (MIP) complet ed anthrax vaccine DoD hepatitis B vaccine, adult dosage 1 2009 [id number] [id number] 43 [facility] hepatitis B vaccine, adult dosage DoD typhoid Vi capsular polysaccharid e vaccine 1 2009 [id number] 101 Sanofi Pasteur (PMC) complet ed typhoid Vi capsular polysacch aride vaccine DoD Novel influenza-H1N 1-09, injectable 2009 [id number] 127 Novartis Pharmaceutica ls complet ed Novel influenza -[id number], injectabl e 10/21/09 Given Ambulat ory Pharmac y Novel influenza-H1N 1-09, injectable 1 2009 [id number] 1 127 Novartis Pharmaceutica l Shaniqua. (NOV) complet ed Novel influenza -L3R8-85, injectabl e DoD influenza virus vaccine, live 2008 [id number] 111 [employer] Inc comple t ed influenza virus vaccine, live 06/17/09 Given Ambulat ory Pharmac y influenza virus vaccine, live, attenuated, for intranasal use 1 2008 [id number] 111 LIANAI, Inc. (MED) complet ed influenza virus vaccine, live, attenuate d, for intranasa l use DoD influenza virus vaccine, live 2007 [id number] 111 [employer] [facility] comple t ed influenza virus vaccine, live 06/19/08 Given Ambulat ory Pharmac y influenza virus vaccine, live, attenuated, for intranasal use 1 2007 [id number] 111 LIANAI, [facility]. (MED) complet ed influenza virus vaccine, live, attenuate d, for intranasa l use DoD influenza virus vaccine, live 2006 [id number] 111 Lingt [facility] t ed influenza virus vaccine, live 08/15/07 Given Ambulat ory Pharmac y influenza virus vaccine, live, attenuated, for intranasal use 1 2006 [id number] 111 LIANAI, Inc. (MED) complet ed influenza virus vaccine, live, attenuate d, for intranasa l use DoD influenza virus vaccine,split 2005 [id number] 15 sanofi pasteur complet ed influenza virus vaccine,s plit 08/02/06 Given Ambulat ory Pharmac y influenza virus vaccine, split virus (incl. purified surface antigen)-reti red CODE 1 2005 [id number] 15 Sanofi Pasteur ([facility]) complet ed influenza virus vaccine, split virus (incl. purified surface antigen)- retired CODE DoD varicella virus vaccine 0 2005 21 () Not Given varicella virus vaccine DoD influenza virus vaccine,split 2004 [id number] 15 sanofi pasteur complet ed influenza virus vaccine,s plit 08/17/05 Given Ambulat ory Pharmac y influenza virus vaccine, split virus (incl. purified surface antigen)-reti red CODE 1 2004 [id number] 15 Sanofi Pasteur ([facility]) complet ed influenza virus vaccine, split virus (incl. purified surface antigen)- retired CODE DoD influenza virus vaccine, live 2004 [id number] 111 Lingt [facility] comple t ed influenza virus vaccine, live 09/22/04 Given Ambulat ory Pharmac y influenza virus vaccine, live, attenuated, for intranasal use 0 2004 [id number] 111 LIANAI, Inc. (MED) complet ed influenza virus vaccine, live, attenuate d, for intranasa l use DoD anthrax vaccine 2003 [id number] 24 [employer] complet ed anthrax vaccine 06/30/04 Given Ambulat ory Pharmac y anthrax vaccine 6 2003 [id number] 24 [facility] complet ed anthrax vaccine DoD tetanus-dipht h toxoids (Td) adult/adol 2003 [id number] 09 sanofi pasteur complet ed tetanus-d iphth toxoids (Td) adult/ado l 05/05/04 Given Ambulat ory Pharmac y tetanus and diphtheria toxoids, adsorbed, preservative free, for adult use (2 Lf of tetanus toxoid and 2 Lf of diphtheria toxoid) 0 2003 [id number] 09 Sanofi Pasteur (PMC) complet ed tetanus and diphtheri a toxoids, adsorbed, preservat wale free, for adult use (2 Lf of tetanus toxoid and 2 Lf of diphtheri a toxoid) DoD anthrax vaccine 2003 [id number] [employer] complet ed anthrax vaccine 12/17/03 Given Ambulat ory Pharmac y anthrax vaccine 5 2003 [id number] 24 [facility] complet ed anthrax vaccine DoD tuberculin purified protein derivative 2002 [id number] 96 sanofi pasteur complet ed tuberculi n purified protein derivativ e 06/18/03 Given Ambulat ory Pharmac y influenza virus vaccine,split 2002 [id number] 15 [employer] complet ed influenza virus vaccine,s plit 06/18/03 Given Ambulat ory Pharmac y influenza virus vaccine, whole virus 2002 [id number] 16 [employer] complet ed influenza virus vaccine, whole virus 06/18/03 Given Ambulat ory Pharmac y typhoid Vi capsular polysaccharid e vac 2002 [id number] 101 sanofi pasteur complet ed typhoid Vi capsular polysacch aride vac 06/18/03 Given Ambulat ory Pharmac y influenza virus vaccine, split virus (incl. purified surface antigen)-reti red CODE 0 2002 [id number] 15 [employer] ([facility]) complet ed influenza virus vaccine, split virus (incl. purified surface antigen)- retired CODE DoD influenza virus vaccine, whole virus 0 2002 [id number] 16 DwainMichael ([facility]) complet ed influenza virus vaccine, whole virus DoD typhoid Vi capsular polysaccharid e vaccine 0 2002 [id number] 101 Sanofi Pasteur ([facility]) complet ed typhoid Vi capsular polysacch aride vaccine DoD anthrax vaccine 2002 [id number] 24 [employer] complet ed anthrax vaccine 05/28/03 Given Ambulat ory Pharmac y anthrax vaccine 4 2002 [id number] 24 [employer] ([facility]) complet ed anthrax vaccine DoD anthrax vaccine 2002 [id number] 24 [employer] complet ed anthrax vaccine 10/16/02 Given Ambulat ory Pharmac y anthrax vaccine 3 2002 [id number] 24 [employer] ([facility]) complet ed anthrax vaccine DoD anthrax vaccine 2002 [id number] 24 [employer] complet ed anthrax vaccine 09/20/02 Given Ambulat ory Pharmac y anthrax vaccine 2 2002 [id number] 24 [employer] ([facility]) complet ed anthrax vaccine DoD anthrax vaccine 2001 [id number] 24 [employer] complet ed anthrax vaccine 09/06/02 Given Ambulat ory Pharmac y anthrax vaccine 1 2001 [id number] 24 [employer] ([facility]) complet ed anthrax vaccine DoD tuberculin purified protein derivative 2001 [id number] 96 sanofi pasteur complet ed tuberculi n purified protein derivativ e 07/17/02 Given Ambulat ory Pharmac y influenza virus vaccine,split 2001 [id number] 15 sanofi pasteur complet ed influenza virus vaccine,s plit 07/17/02 Given Ambulat ory Pharmac y influenza virus vaccine, whole virus 2001 [id number] 16 sanofi pasteur complet ed influenza virus vaccine, whole virus 07/17/02 Given Ambulat ory Pharmac y influenza virus vaccine, split virus (incl. purified surface antigen)-reti red CODE 0 2001 [id number] 15 Sanofi Pasteur ([facility]) complet ed influenza virus vaccine, split virus (incl. purified surface antigen)- retired CODE DoD influenza virus vaccine, whole virus 0 2001 [id number] 16 Sanofi Pasteur (PMC) complet ed influenza virus vaccine, whole virus DoD tuberculin purified protein derivative 2000 [id number] 96 sanofi pasteur complet ed tuberculi n purified protein derivativ e 07/18/01 Given Ambulat ory Pharmac y influenza virus vaccine,split 2000 [id number] 15 sanofi pasteur complet ed influenza virus vaccine,s plit 07/18/01 Given Ambulat ory Pharmac y influenza virus vaccine, whole virus 2000 [id number] 16 sanofi pasteur complet ed influenza virus vaccine, whole virus 07/18/01 Given Ambulat ory Pharmac y influenza virus vaccine, split virus (incl. purified surface antigen)-reti red CODE 0 2000 [id number] 15 Sanofi Pasteur (PMC) complet ed influenza virus vaccine, split virus (incl. purified surface antigen)- retired CODE DoD influenza virus vaccine, whole virus 0 2000 [id number] 16 Sanofi Pasteur (PMC) complet ed influenza virus vaccine, whole virus DoD measles/mumps /rubella virus vaccine 2000 03 Merck & Company Inc complet ed measles/m umps/rube lla virus vaccine 05/09/01 Given Ambulat ory Pharmac y tuberculin purified protein derivative 2000 [id number] complet ed tuberculi n purified protein [...] polysacch aride vaccine (MPSV4) DoD typhoid vaccine, inactivated 2000 [id number] 101 sanofi pasteur complet ed typhoid vaccine, inactivat ed 01/04/01 Given Ambulat ory Pharmac y typhoid vaccine, parenteral, other than acetone-kille d, dried 0 2000 [id number] 41 Sanofi Pasteur (PMC) complet ed typhoid vaccine, parentera l, other than acetone-k illed, dried DoD influenza virus vaccine,split 2000 [id number] 15 [employer] complet ed influenza virus vaccine,s plit 09/20/00 Given Ambulat ory Pharmac y influenza virus vaccine, whole virus 2000 [id number] 16 [employer] complet ed influenza virus vaccine, whole virus 09/20/00 Given Ambulat ory Pharmac y influenza virus vaccine, split virus (incl. purified surface antigen)-reti red CODE 0 2000 [id number] 15 Mir[employer]is Medica ([place]) complet ed influenza virus vaccine, split virus (incl. purified surface antigen)- retired CODE DoD influenza virus vaccine, whole virus 0 2000 [id number] 16 [employer] (WAL) complet ed influenza virus vaccine, whole virus DoD hepatitis A adult vaccine 1998 [id number] Merck & amprice Inc complet ed hepatitis A adult vaccine 08/18/99 Given Ambulat ory Pharmac y hepatitis A vaccine, adult dosage 2 1998 [id number] 52 Merck (MSD) complet ed hepatitis A vaccine, adult dosage DoD influenza virus vaccine, whole virus [id number] 16 [employer] complet ed influenza virus vaccine, whole virus 07/21/99 Given Ambulat ory Pharmac y influenza virus vaccine,split 19987519 [id number] 15 [employer] complet ed influenza virus vaccine,s plit 07/21/99 Given Ambulat ory Pharmac y influenza virus vaccine, split virus (incl. purified surface antigen)-reti red CODE 0 19984833 [id number] 15 Mirabilis Medicaseema (WAL) complet ed influenza virus vaccine, split virus (incl. purified surface antigen)- retired CODE DoD influenza virus vaccine, whole virus 0 [id number] [id number] 16 Mirabilis Medicaseema ([place]AL) complet ed influenza virus vaccine, whole virus DoD hepatitis A adult vaccine 1998 52 Unknown complet ed hepatitis A adult vaccine 01/13/99 Given Ambulat ory Pharmac y hepatitis A vaccine, adult dosage 1 1998 52 Unknown (UNK) comple t ed hepatitis A vaccine, adult dosage DoD influenza virus vaccine, whole virus 19973296 [id number] 16 sanofi pasteur complet ed influenza virus vaccine, whole virus 06/17/98 Given Ambulat ory Pharmac y influenza virus vaccine,split 19976402 [id number] [facility] influenza virus vaccine,s plit 06/17/98 Given Ambulat ory Pharmac y influenza virus vaccine, split virus (incl. purified surface antigen)-reti red CODE 0 19977501 [id number] 15 ofi Pasteur ([facility]) complet ed influenza virus vaccine, split virus (incl. purified surface antigen)- retired CODE DoD influenza virus vaccine, whole virus 0 19973985 8440685 16 ofi Pasteur ([facility]) complet ed influenza virus vaccine, [...] ed meningoco ccal polysacch aride vaccine (MPSV4) [facility] tetanus-dipht h toxoids (Td) adult/adol 1993 09 [...] Prevention' s HIV diagnostic algorithm. Refer to [facility] Lab Guide for additional information : [email or web address]/ [email or web address] x Testing performed by [facility] [address] [email or web address] EPILAB Miscellan eous Sendouts Repository Sample Received (12/16/23 1:30 PM) 12/15 N [address] [employer] EPILAB Encounters Combined list of: 1) Encounters from Department of Veterans Affairs facilities going backup to the last 18 months, not all VA inpatient encounters are included; 2) Encounters from the Department of Defense facilities going backup to 280 months. Location Location Details Encounter Type Encounter Number Reason For Visit Attending Provider ADM Date DC Date Status Disposition Source [facility] [place] [facility] OUTPATIENT [id number] sore throat/ congest ion x2days JERONIMO EGAN 11/11 Released w/o Limitations [facility] [place] [facility] [place] [facility] [place] [facility] TELE CONSULT [id number] Notes Entered by: JERONIMO MARTIN 11 Nov 2012 1355 ------- ------- ------- ------- -- Hyperli pidemia RYAN FOOTE 11/11 [facility] [place] [facility] [place] [facility] [place] [facility]) OUTPATIENT [id number] f/u BP and Labs JERONIMO EAGN 11/18 Released w/o Limitations [facility] [place] [facility] [place] [facility] [place] [facility]) OUTPATIENT [id number] F/U HBP CHECK UP/JERONIMO KUMAR 12/21 Released w/o Limitations [facility] [place] [facility] [facility] [place] [facility]) OUTPATIENT [id number] f/u BP per LCDR CHAYA Avendaño 01/07 Released w/o Limitations [facility] [place] [facility] [place] [facility] [place] [facility] [place]) OUTPATIENT [id number] follow up per CHAYA Gatica 01/29 Released w/o Limitations [facility] [place] [facility] [facility] [place] [place] [address](AFN G 104 Med Sq-FM) OUTPATIENT [id number] Notes Entered by: ROSSY LEWIS R 16 Feb 2017 1306 ------- ------- ------- ------- -- [employer] ice PHA-Q FABRIZIO LEWIS 02/16 Released w/o Limitations [facility] [place] [place] [address](A FNG 104 Med Sq-FM) [place] [address](AFN G 104 Med Sq-FM) OUTPATIENT [id number] Notes Entered by: EDNA LOWE 24 May 2017 1049 ------- ------- ------- ------- -- PHAQ follow up EDNA LOWE 05/24 Released w/o Limitations [facility] [place] [address](A FNG 104 Med Sq-FM) [place] [address](AFN G 104 Med Sq-FM) OUTPATIENT [id number] Notes Entered by: EDNA LOWE 20 May 2018 1542 ------- ------- ------- ------- -- Tri-Ser EDNA Duarte 05/20 Released w/o Limitations [facility] [place] [address](A FNG 104 Med Sq-FM) [place] [address](AFN G 104 Med Sq-FM) OUTPATIENT [id number] Notes Entered by: VERO COLLINS 17 Oct 2019 1326 ------- ------- ------- ------- -- PHAQ VERO COLLINS 10/17 [facility] Limitations [facility] [place] [address](A FNG 104 Med Sq-FM) [facility] [place] [address](AFN G 104 Med Sq-FM) TELE CONSULT [id number] Notes Entered by: ISMAEL TRAN 08 Dec 2019 1008 ------- ------- ------- ------- -- ISMAEL KENT 12[facility]07 [facility] [place] [place] [address](A FNG 104 Med Sq-FM) [facility] [place] [address](AFN G 104 Med Sq-FM) OUTPATIENT [id number] Notes Entered by: ISMAEL TRAN 02 Mar 2020 1305 ------- ------- ------- ------- -- DEVORA 1 ISMAEL TRAN 03/02 [facility]ased w/o Limitations [facility] [place] [address](A FNG 104 Med Sq-FM) [facility], [place] [address](AFN G 104 Med Sq-FM) TELE CONSULT [id number] Notes Entered by: ISMAEL TRAN 09 Mar 2020 0729 ------- ------- ------- ------- -- hospISMAEL Olvera 03/09 [facility] [place] [place] [address](A FNG 104 Med Sq-FM) [facility] [place] [address](AFN G 104 Med Sq-FM) TELE CONSULT [id number] Notes Entered by: ISMAEL TRAN 26 May 2020 1437 ------- ------- ------- ------- -- return note ISMAEL TRAN 05/26 [facility] [place] [place] [address](A FNG 104 Med Sq-FM) [facility] [place] [address](AFN G 104 Med Sq-FM) TELE CONSULT [id number] ISMAEL TRAN 05/30 [facility] [place] [place] [address](A FNG 104 Med Sq-FM) [facility] [place] [address](AFN G 104 Med Sq-FM) TELE CONSULT [id number] ISMAEL TRAN LORRAINE 08/26 [facility] [place] [place] [address](A FNG 104 Med Sq-FM) [facility] [place] [address](AFN G 104 Med Sq-FM) OUTPATIENT [id number] ANASTACIA TRANJANES PETERS 11/17 [facility]ased w/o Limitations [facility] [place] [address](A FNG 104 Med Sq-FM) [facility] [place] [address](AFN G 104 Med Sq-FM) OUTPATIENT [id number] Notes Entered by: ISMAEL TRAN 24 Nov 2020 1332 ------- ------- ------- ------- -- PHAQ ISMAEL TRAN 11/24 [facility] w/o Limitations [facility] [place] [address](A FNG 104 Med Sq-FM) [facility] [place] [address](AFN G 104 Med Sq-FM) OUTPATIENT [id number] Notes Entered by: DELIA HOLLAND 23 Nov 2021 0832 ------- ------- ------- ------- -- Audiogr am/PHAQ /FABRIZIO TAYLOR 11/23 Released w/o Limitations [facility] Treatme nt [place] [address](A FNG [address] Med [address]-FM) [facility] [place] [place] [address](AFN G [address] Med S[address]-FM) OUTPATIENT [id number] Notes Entered by: EDISON BIRD 14 Nov 2022 1550 ------- ------- ------- ------- -- Audiogr am ISMAEL TRAN 11/14 Released w/o Limitations [facility] [place] [address](A FNG [address] Med Sq-FM) [facility] [place] [place] [address](AFN G [address] Med Sq-FM) OUTPATIENT [id number] 6 Notes Entered by: MIHIR AUSTINKYLIE AMATO Justina 14 Nov 2022 1802 ------- ------- ------- ------- -- CARLA Oscar 11/15 [facility] [place] [address](A FNG [address] Med Sq-FM) Procedures Combined list of: 1) Procedures from Department of Veterans Affairs facilities going back up to thelast 18 months, not all [place] non-surgical procedures are included; 2) All procedures [...] Plan No data available for this section 05/10/2025 Ambulatory Pharmacy Functional Status Combined list of recent functional and cognitive assessments recorded at Department of Defense and Veterans Affairs ([place]).VA Functional Edwards Measurement (FIM) Scale: 1 = Total Assistance (Subject = 0% +), 2 = Maximal Assistance (Subject = 25% +), 3 = Moderate Assistance (Subject = 50% +), 4 = Minimal Assistance (Subject = 75% +), 5 = Supervision, 6 = Modified Edwards (Device), 7 = Complete Edwards (Timely, Safely). Assessment Date/Time Source Assessment Type Assessment Skill Assessment Score Assessment Details No data available for this section
--- OUTSIDE RECORDS SUMMARY | 2025-05-10 09:44 | XMS_ITS | Clinical Summary ---
Author Organization [facility] Address [address] [place] [address] Care Team Providers Care Lift Manager Name Role Phone Pcp, No Primary Care [...] 60 05/22/2020 1:51 PM EDT Temperature 36.9 C (98.5 F) 05/22/2020 1:51 PM EDT Respiratory Rate 16 05/22/2020 1:51 PM EDT [...] (1 of 3 - 19+ 3-dose series) 08/16 Colonoscopy 2015 Pneumococcal Vaccines 50+ (1 of 1 - PCV) 2020 Zoster (Shingles) Vaccine (1 of 2) 2020 COVID-19 Vaccine (1 - 2023- season) 2024 Influenza Vaccine 04/15/2025 [facility] Care Teams Lift Manager Relationship Specialty Start Date End Date Pcp, No PCP - General General Medicine 09/15/19
--- OUTSIDE RECORDS SUMMARY | 2025-05-10 09:45 | XMS_ITS | Clinical Summary ---
Author Organization [facility] Address [address] [address] Phone Care Team Providers Care Power Line Lineman Name Role Phone Jamaica Kent MD Primary Care Provider [phone] Allergies Active Allergy Reactions Criticality Noted Date Comments Lisinopril 09/01/2019 Medications amLODIPine (NORVASC) 10 MG tablet 07/30/2019 Active atorvastatin (LIPITOR) 20 MG tablet 10/03/2019 Active hydroCHLOROthiazid e (HYDRODIURIL) 25 MG tablet 07/30/2019 Active losartan [...] at Not on file Legal Sex Male 4:22 PM EST Gender Identity Not on file Sexual Orientation Not on file Last Filed Vital Signs Vital Sign Reading Time Taken Comments Blood Pressure 131/90 10/22/2019 12:07 PM EST Pulse 90 10/22/2019 12:07 PM EST Temperature 36.9 C (98.5 F) 10/22/2019 12:07 PM EST Respiratory Rate 18 10/22/2019 12:07 PM EST [...] POTASSIUM LEVEL 1970 DEPRESSION SCREENING 1982 HEPATITIS C SCREENING 1988 HIV ONE-TIME SCREENING (18-6 5 YEARS) 1988 COLOGUARD 2015 COLONOSCOPY 2015 COLORECTAL CANCER SCREENING 2015 FIT TEST 2015 FOBT 2015 SIGMOIDOSCOPY 2015 VIRTUAL COLONOSCOPY 2015 PNEUMOCOCCAL VACCINES (50+ y ears) (1 of 1 - PCV) 2020 ZOSTER VACCINES (1 of 2) 2020 COVID-19 VACCINE (1 - 2023-2 5 season) [...] age to complete this topic MENINGOCOCCAL VACCINES (B) Aged Out N o longer eligible based on patient's age to complete this topic Medical Devices Not on file Insurance [employer] PPO CIGNA CARELINK PPO CIGNA CARELINK PPO CIGNA [employer] PPO CIGNA [employer]ELINK PPO CIGNA [employer] PPO CIGNA [employer]ELINK PPO Care Teams Power Line Lineman Relationship Specialty Start Date End Date Po, Jamaica Levy MD [address] [place] [address] PCP - General Internal Medicine 09/01/19 Additional Source Comments The information contained in this document represents components of the legal health record. It is not the complete legal health record.[facility]
[2025-05-10 09:55] LABS: MANUAL DIFF FLAG NO
[2025-05-10 10:04] LABS: Hematocrit 40.8 % (42.0-52.0); Hemoglobin 14.1 g/dl (14.0-18.0); Imm Gran Abs Auto 0.03 X10*3/uL (0.00-0.03); Imm Gran Pct Auto 0.5 % (0.0-0.4); Lymphocytes Absolute Auto 1.1 X10*3/uL (1.2-4.9); Mean Corpuscular HGB Conc 34.6 g/dl (31.0-36.0); Mean Corpuscular Hemoglobin 31.6 pg (27.0-33.0); Mean Corpuscular Volume 91.5 fL (80.0-98.0); NRBC Abs Auto 0.000 X10*3/uL (0.0-0.012); NRBC Pct Auto 0.0 /100WBC (0.0-0.2); Platelet Count 191 X10*3/uL (160-400); Red Blood Count 4.46 X10*6/uL (4.60-5.80); White Blood Count 6.5 X10*3/uL (4.8-10.8)
[2025-05-10 10:11] LABS: Hemoglobin A1C 139.4022 umol/L; Total Hemoglobin (HGBA1C) 3738.8158 umol/L
[2025-05-10 11:08] LABS: PSA,Total (Free>4and<10) 11.09 ng/mL (0.00-4.00)
[2025-05-10 11:12] LABS: Alanine Aminotransferase 68 U/L (0-40); Albumin Level 4.8 g/dL (3.5-5.0); Alkaline Phosphatase 72 U/L (39-117); Anion Gap 15 (12-20); Aspartate Amino Transferase 67 U/L (5-37); Blood Urea Nitrogen 15 mg/dL (9-16); Calcium 9.3 mg/dL (8.4-10.2); Carbon Dioxide 22 mmol/L (22-29); Chloride 108 mmol/L (96-108); Estimated Glomerular Filt Rate > 60; Free T4 (Free Thyroxine) 1.11 ng/dL (0.71-1.85); Potassium 4.0 mmol/L (3.3-5.1); Sodium 141 mmol/L (135-145); Thyroid Stimulating Hormone 1.69 uIU/mL (0.32-4.0); Total Protein 7.2 g/dL (6.5-8.0)
[2025-05-10 11:18] LABS: Folate 7.8 ng/mL (> or = 4.0); Vitamin B12 421 pg/mL (200-900)
== END 2025-05-10 09:18 | disposition home or self-care (01) ==
LOC: HO.LAB 09:17
PROVIDERS: Absent Provider Urology; PCP Internal Medicine; Visit Provider Internal Medicine
DX: Z12.5 Encounter for screening for malignant neoplasm of prostate (principal); C61 Malignant neoplasm of prostate; E78.00 Pure hypercholesterolemia, unspecified; R79.89 Other specified abnormal findings of blood chemistry
CPT/HCPCS: 36415; 80053; 82248; 82607; 82746; 83036; 84153; 84439; 84443; 85025

== ENCOUNTER 2025-05-27 14:55 | Outpatient (AMB) | payer BC, SELFPAY ==
--- NOTE | 2025-05-27 15:01 | A.OFFVIS_ITS ---
Intake Visit Reasons: follow up/PSA Intake Note: patient presents today for: follow up/PSA urology medications: finasteride blood thinners: none labs done 05/10/25:t-psa 11.09 Business Support Specialist Required: No Accompanied by: Self / Same As Patient Allergies lisinopril (LISINOPRIL) Allergy (Unknown, Verified 05/27/25 15:01) cough HPI Comments Details: Won is a pleasant male. He is a patient of Dr. Kent. 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 PSA remains progressive Imaging not consistent with PSA result Recommend repeat biopsy 01/06 PSA 6, 04/07 5.0, 08/08 6.4 9%, 12/07 8.3, 02/05 11 Imaging - 01/07 MRI - no evidence of lesions within prostate, 45gm Genetics indicate active surveillance group Treatment options including robotic prostatectomy discussed previously Prostate cancer - 04/0623 Grade Group [address] Parson for rising PSA 03/07 PSA at diagnosis 5.7, free% 15 No family history TRUS - 45gm, T1c Jose score: 3+3=6 - Grade group: 1 Number cores positive: 4 Total number of cores: 12 - LBL 10%, LML 5%, RML 10%, KARLA 5% Periprostatic fat inv.: Not identified Seminal vesicle inv.: Not identified Perineural inv.: Not identified LVI:Not identified Staging - 05/07 Genetics active surveillance - Prolaris - 05/07 MRI - 10mm lesion right anterior mid transition zone PiRADS 3, 6 mm left posterolateral mid peripheral zone PI-RADS 4 PFSH Medical History Prostate cancer PSA elevation Anxiety and depression Fatty liver GERD (gastroesophageal reflux disease) Obesity (BMI 30-39.9) Vitamin D deficiency Obstructive sleep apnea Hypercholesterolemia Hypertension Impaired fasting glucose Alcohol abuse Surgical History History of prostate biopsy History of esophagogastroduodenoscopy (EGD) H/O nasal septoplasty Family History Father Alcoholism Breast cancer Mother Hypertension Hypercholesteremia Brother Hypercholesteremia Gout Maternal Grandfather Throat cancer Maternal Grandmother Hypertension Maternal Uncle Throat cancer Colon cancer Social History Household Members Other:: - 1 son Housing: House Alcohol intake: former Comment: 2019 last drink Patient Tobacco Use Status: Former Tobacco user Tobacco use type: Cigar Years Smoked: quit 2020 e-Cigarette/Vaping Use: Never Used Second Hand Smoke Exposure: No service: Yes Current occupational status: employed Current occupation: [employer] Cognitive needs: No Hearing needs: No Vision needs: Yes Review of Systems Const Denies chills and Denies fever(s) Card Reports no additional complaints and Denies syncope Resp Denies cough GI Denies abdominal pain and Denies heartburn Reports as per HPI and Denies change in libido Neuro Denies syncope Psych Denies change in libido Endo Denies change in libido Physical Exam Const General: cooperative, healthy appearing, comfortable and no acute distress Orientation/consciousness: patient oriented x3 HEENT Face and sinus: Yes normal facial exam Mouth: moist mucous membranes Neck Neck: Yes normal visual inspection, Yes full ROM and Yes trachea midline Chest Chest palpation & inspection: normal inspection of the chest Resp Effort & Inspection: normal respiratory effort, able to speak in complete sentences and no respiratory distress GI Inspection: Yes normal to inspection Back/Spine/Pelvis Cervical Spine: normal cervical lordosis Thoracic/Lumbar Spine: thoracic and lumbar spine normal to inspection Skin General skin exam: no rashes or lesions noted Neuro General: patient oriented x3, gait normal, tone normal and moves all extremities Extrem General: Yes normal to inspection and Yes capillary refill normal Assessment & Plan Assessment & Plan (1) Prostatic adenocarcinoma: Comment: 03/07 - Grade Group 1 Prolaris Active Surveillance Code(s): C61 - Malignant neoplasm of prostate Category: Medical Plan Risks and benefits regarding trans rectal ultrasound with prostate biopsy were discussed. Options of continued surveillance, no treatment and biopsy were offered. The risks include but are not limited to, urinary tract infection, sepsis, difficulty urinating, bleeding into the rectum or bladder that requires intervention and transfusion,and failure to diagnose prostate cancer. The patient understands the options and the risks involved. They wish to proceed. Printed information was provided to ensure he remains off anticoagulation for the appropriate length of time. He may require cardiology or PCP clearance. An antibiotic will be administered prior to, and following the procedure Medications: New levofloxacin take 1 tablet day before procedure, 1 tablet day of procedure and 1 tablet day after procedure 500 mg PO DAILY 3 tabs 0RF 3 days C61 - Malignant neoplasm of prostate diazepam Take medication after arrival at office 2 mg PO BID PRN 2 tabs 0RF anxiety 1 day C61 - Malignant neoplasm of prostate, R45.89 - Other symptoms and signs involving emotional state Patient Instructions: This note is constructed using voice recognition software. While every effort has been made to ensure accuracy security installation sales technician errors may have been included. Imaging studies, laboratory and physical exam results were discussed and reviewed in detail. No major barriers to patient understanding were identified. An opportunity to ask questions regarding the treatment plan was provided. All questions were answered. The patient expressed understanding and agreement with the above treatment plan. The patient is aware they should contact our office by phone for worsening of their current condition or the appearance of new urologic symptoms. Compliance is encouraged with any medications and followup testing that is ordered. It is a privilege to participate in the urologic care of your patient. If you have any questions or concerns regarding treatment for the above conditions, or other urologic issues, please do not hesitate to contact me. The office telephone contact is [phone]. Sincerely, Dr Mikal Parson MD, [facility] - Urology Compassionate Specialist Care for the Genitourinary System Coding Level of Care Code Est Pt Level 3 (90540) Complex EM visit Add On G2211 Diagnoses Prostatic adenocarcinoma C61
--- OUTSIDE RECORDS SUMMARY | 2025-05-27 17:32 | XMS_ITS | Clinical Summary ---
Author Organization [facility] Address [address] [address] Phone Care Team Providers Care Welder Fitter Gas Name Role Phone Jamaica Kent MD Primary Care Provider [phone] Allergies Active Allergy Reactions Criticality Noted Date [...] (1 of 2) 2020 INFLUENZA VACCINE (#1) 2025 9, 10/31/2017, 06/29/2016 COVID-19 VACCINE (1 - 2023-2 5 season) 2025 SMOKING STATUS SCREENING (On ce After 26 [...] topic Medical Devices Not on file Insurance [employer] PPO CIGNA CARELINK PPO CIGNA CARELINK PPO CIGNA [employer] PPO CIGNA [employer]ELINK PPO CIG[employer] PPO Care Teams Welder Fitter Gas Relationship Specialty Start Date End Date Donte, Jamaica Levy MD [address] [place] [address] PCP - General Internal Medicine 09/01/19 Additional Source Comments The information contained in this document represents components of the legal health record. It is not the complete legal health record.[facility]
--- OUTSIDE RECORDS SUMMARY | 2025-05-27 17:32 | XMS_ITS | Clinical Summary ---
Author Organization [facility] Address [address] [place] [address] Care Team Providers Care Nailer Hand Name Role Phone Pcp, No Primary Care [...] Vaccine (1 of 2) 2020 Influenza Vaccine 04/15/2025 COVID-19 Vaccine (1 - 2023- season) 2025 [facility] Care Teams Nailer Hand Relationship Specialty Start Date End Date Pcp, No PCP - General General Medicine 09/15/19
== END 2025-05-27 15:43 | disposition home or self-care (01) ==
LOC: HO.HUSH 14:56
PROVIDERS: PCP Internal Medicine; Visit Provider Urology
DX: C61 Malignant neoplasm of prostate (principal)
CPT/HCPCS: 99213

== ENCOUNTER 2025-06-07 07:44 | Outpatient (REF) | payer BC, SELFPAY ==
--- OUTSIDE RECORDS SUMMARY | 2025-06-07 07:46 | XMS_ITS | Clinical Summary ---
Author Organization [facility] Address [address] [address] Phone Care Team Providers Care Marshmallow Runner Name Role Phone Jamaica Kent MD Primary Care Provider [phone] Allergies Active Allergy Reactions Criticality Noted Date [...] topic Medical Devices Not on file Insurance [employer] PPO CIGNA CARELINK PPO CIGNA [employer]ELINK PPO CIGNA [employer] PPO CIGNA CARELINK PPO CIGNA [employer]EL[employer] PPO Care Teams Marshmallow Runner Relationship Specialty Start Date End Date Donte, Jamaica Levy MD [address] [place] [address] PCP - General Internal Medicine 09/01/19 Additional Source Comments The information contained in this document represents components of the legal health record. It is not the complete legal health record.[facility]
--- OUTSIDE RECORDS SUMMARY | 2025-06-07 07:46 | XMS_ITS | Clinical Summary ---
Author Organization [facility] Address [address] [place] [address] Care Team Providers Care Commercial Housekeeper Name Role Phone Pcp, No Primary Care [...] Vaccine (1 - 2023- season) 2025 [facility] Care Teams Commercial Housekeeper Relationship Specialty Start Date End Date Pcp, No PCP - General General Medicine 09/15/19
--- NOTE | 2025-06-07 08:35 | W.PM.OPN ---
Operative Note Operative Note Date of Service: 06/07/25 Narrative: Preoperative diagnosis: Prostate Cancer Postoperative diagnosis: Prostate Cancer Procedure: 1. transrectal ultrasound measurement of prostate 2. transrectal ultrasound-guided pudendal nerve block 3. transrectal ultrasound-guided prostate biopsy 12 core Surgeon: Dr. Mikal Parson Anesthetic: 10cc 1% lidocaine Indications for procedure: Prostate Cancer - grade group 1 on active surveillance follow-up biopsy for cause - elevated PSA Counselling: Technical aspects, risks and benefits of proposed procedure were discussed in full. All questions have been answered, written consent has been obtained and patient agrees to proceed. Procedure: The patient was brought into the procedure area and placed in a left lateral decubitus position. Patient identity confirmed. Perioperative antibiotics confirmed. Safety pause time out performed. LEN was performed to dilate rectal sphincter Iodine 10cc with 60 cc gel was placed per rectum to reduce infection risk using a catheter tip syringe. 8 Hz Keyonna rectal end-fire ultrasound probe was placed transrectally without difficulty. The prostate was visualized. Seminal vesicles were normal. Prostate margins were clearly demarcated. Bladder was seen superiorly. No cystic structures were noted No calcifications were noted at the surgical margin The prostate was otherwise homogeneous in nature The prostate was measured in 3 dimensions Prostatic Width: 4.4 cm Prostatic Height: 4.4 cm Urethral Length: 4.9 cm Total volume equals : 50 ml An ultrasound-guided pudendal nerve block was performed using a 22 gauge spinal needle in the sagittal plane. 4 cc of 1% lidocaine placed at the junction of each seminal vesicle and 2 cc placed at the apex of the prostate. A 12 core biopsy was performed with 6 cores each side using an 18 gauge prostate biopsy gun. Two cores each were taken at the prostate apex, mid and base on each side. Cores were spaced between lateral and medial aspects. Each core was examined as placed on specimen foam as part of quality control microbiology supervisor to ensure a minimum 1 cm of length and minimal discontinuity. He tolerated the procedure well with minimal rectal bleeding. Blood pressure remained stable following procedure. He was able to ambulate to bathroom after 5 minutes. Printed instructions regarding antibiotic use and common adverse events from the procedure such as low-grade temperature, potential infection and bleeding were given. He understands to call the office or go to an emergency room should any of these events arise. Pathology: 12 core prostate biopsy. CPT code 99985: Transrectal ultrasound; this is a diagnostic test for evaluation of the prostate and surrounding structures, looking for abnormalities or suspicious areas worrisome for cancer CPT code 30130: Biopsy, prostate; needle or punch, single or multiple, any approach CPT code 20533: Ultrasonic guidance for needle placement (eg, biopsy, aspiration, injection, localization device), imaging supervision and interpretation
[2025-06-07] MEDS: Lidocaine HCl 1 % MPF 5 ML VIAL 10 ML SUBCUT (08:55)
== END 2025-06-07 07:45 | disposition home or self-care (01) ==
LOC: HO.US 07:44
PROVIDERS: PCP Internal Medicine; Visit Provider Urology
DX: R97.20 Elevated prostate specific antigen [PSA] (principal); C61 Malignant neoplasm of prostate
CPT/HCPCS: 55700; 76942; 88305; J2003

== ENCOUNTER → 2025-06-07 07:44 | Outpatient (BNV) | payer BC, SELFPAY | PROVIDERS: PCP Internal Medicine; Visit Provider Urology | DX: C61 Malignant neoplasm of prostate (principal) | CPT/HCPCS: 55700; 76872; 76942 ==

== ENCOUNTER 2025-06-16 15:02 | Outpatient (AMB) | payer BC, SELFPAY ==
--- NOTE | 2025-06-16 15:02 | A.OFFVIS_ITS ---
Intake Visit Reasons: Prostate biopsy results Intake Note: patient presents today for PROSTATE Bx RESULTS urology medications: finasteride blood thinners: none Marketing Operations Coordinator Required: No Accompanied by: Self / Same As Patient Allergies lisinopril (LISINOPRIL) Allergy (Unknown, Verified 06/16/25 15:03) cough HPI Comments Details: Won is a pleasant male. He is a patient of Dr. Kent. 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 01/06 PSA 6, 04/07 5.0, 08/08 6.4 9%, 12/07 8.3, 02/05 11 Imaging - 01/07 MRI - no evidence of lesions within prostate, 45gm Current biopsy shows grade group 1 low volume Continue finasteride Three-month follow-up repeat PSA Prostate cancer - 04/0623 Grade Group 1 low volume, 06/0925 grade group [address] Parson for rising PSA 03/07 PSA at diagnosis 5.7, free% 15 No family history TRUS - 45gm, T1c April 2025 grade group 1 low volume TRUS 50 g, T1c Histologic type: Acinar adenocarcinoma Histologic grade: Jose score: 3+3=6 (K) % of pattern 4: N/A % of pattern 5: N/A Grade group: 1 Tumor quantitation: Number cores positive: 1 Total number of cores: 12 % of tissue involved: See above for details Periprostatic fat inv.: Not identified Seminal vesicle inv.: Not identified Perineural inv.: Not identified LVI: Not identified March 2023 - grade grade 1 low volume [place] score: 3+3=6 - Grade group: 1 Number cores positive: 4 Total number of cores: 12 - LBL 10%, LML 5%, RML 10%, KARLA 5% Periprostatic fat inv.: Not identified Seminal vesicle inv.: Not identified Perineural inv.: Not identified LVI:Not identified Staging - 05/07 Genetics active surveillance - Prolaris - 05/07 MRI - 10mm lesion right anterior mid transition zone PiRADS 3, 6 mm left posterolateral mid peripheral zone PI-RADS 4 PFSH Medical History Prostate cancer PSA elevation Anxiety and depression Fatty liver GERD (gastroesophageal reflux disease) Obesity (BMI 30-39.9) Vitamin D deficiency Obstructive sleep apnea Hypercholesterolemia Hypertension Impaired fasting glucose Alcohol abuse Surgical History History of prostate biopsy History of esophagogastroduodenoscopy (EGD) H/O nasal septoplasty Family History Father Alcoholism Breast cancer Mother Hypertension Hypercholesteremia Brother Hypercholesteremia Gout Maternal Grandfather Throat cancer Maternal Grandmother Hypertension Maternal Uncle Throat cancer Colon cancer Social History Household Members Other:: - 1 son Housing: House Alcohol intake: former Comment: 2019 last drink Patient Tobacco Use Status: Former Tobacco user Tobacco use type: Cigar Years Smoked: quit 2020 e-Cigarette/Vaping Use: Never Used Second Hand Smoke Exposure: No service: Yes Current occupational status: employed Current occupation: [employer] Cognitive needs: No Hearing needs: No Vision needs: Yes Review of Systems Const All systems reviewed & are unremarkable except as noted in HPI and below Reports no additional complaints Resp Reports no additional complaints GI Reports no additional complaints Reports as per HPI Musc Reports no additional complaints Physical Exam Telemedicine evaluation Appropriate responses Regular breathing rate and rhythm HEENT Head: Yes normal to inspection Ears: hearing grossly normal bilaterally Eyes General: appearance normal, both eyes and all related structures Neck Neck: Yes normal visual inspection Chest Chest palpation & inspection: normal inspection of the chest Resp Effort & Inspection: normal respiratory effort and able to speak in complete sentences Telehealth Telehealth Telehealth Platform: [facility] Location of provider rendering services: practice address Location of patient: address on file Patient Identification confirmed using: Name, : Yes Telehealth method: video Patient verbally consented to treatment: Yes Patient verbally consented to billing insurance company: Yes Patient informed of any privacy concerns related to visit: Yes Minutes spent on Phone/Video with Pt.: 15 Assessment & Plan Assessment & Plan (1) Prostatic adenocarcinoma: Comment: 03/07 - Grade Group 1 Prolaris Active Surveillance Code(s): C61 - Malignant neoplasm of prostate Category: Medical Plan Restart finasteride Three-month follow-up repeat PSA Genetic Orders: Orders Prostate Specific Antigen 3 Months C61 - Malignant neoplasm of prostate Medications: Refilled tramadol 50 mg PO Q8H PRN 14 tabs 0RF pain Patient Instructions: This note is constructed using voice recognition software. While every effort has been made to ensure accuracy card room manager errors may have been included. Imaging studies, laboratory and physical exam results were discussed and reviewed in detail. No major barriers to patient understanding were identified. An opportunity to ask questions regarding the treatment plan was provided. All questions were answered. The patient expressed understanding and agreement with the above treatment plan. The patient is aware they should contact our office by phone for worsening of their current condition or the appearance of new urologic symptoms. Compliance is encouraged with any medications and followup testing that is ordered. It is a privilege to participate in the urologic care of your patient. If you have any questions or concerns regarding treatment for the above conditions, or other urologic issues, please do not hesitate to contact me. The office telephone contact is [phone]. Sincerely, Dr Mikal Parson MD, [facility] - Urology Compassionate Specialist Care for the Genitourinary System Coding Level of Care Code Tele Est Pt Level 4 (73016) Diagnoses Prostatic adenocarcinoma C61
--- OUTSIDE RECORDS SUMMARY | 2025-06-16 16:27 | XMS_ITS | Clinical Summary ---
Author Organization [facility] Address [address] [place] [address] Care Team Providers Care Casino Gaming Inspector Name Role Phone Pcp, No Primary Care [...] Vaccine (1 - 2023- season) 2025 [facility] Care Teams Casino Gaming Inspector Relationship Specialty Start Date End Date Pcp, No PCP - General General Medicine 09/15/19
--- OUTSIDE RECORDS SUMMARY | 2025-06-16 16:27 | XMS_ITS | Clinical Summary ---
Author Organization [facility] Address [address] [address] Phone Care Team Providers Care Door Patcher Name Role Phone Jamaica Kent MD Primary Care Provider [phone] Allergies Active Allergy Reactions Criticality Noted Date [...] topic Medical Devices Not on file Insurance [employer] PPO CIGNA [employer] PPO CIG[employer] PPO C[employer] PPO CIG[employer] PPO [employer] PPO Care Teams Door Patcher Relationship Specialty Start Date End Date Donte, Jamaica Levy MD [address] [place] [address] PCP - General Internal Medicine 09/01/19 Additional Source Comments The information contained in this document represents components of the legal health record. It is not the complete legal health record.[facility]
== END 2025-06-16 15:41 | disposition home or self-care (01) ==
LOC: HO.HUSH 15:02
PROVIDERS: PCP Internal Medicine; Visit Provider Urology
DX: C61 Malignant neoplasm of prostate (principal)
CPT/HCPCS: 99214

== ENCOUNTER 2025-07-04 13:16 | Outpatient (AMB) | payer BC, SELFPAY ==
[2025-07-04 14:06] VITALS: BP 146/92; PULSE 86; TEMP 36.4; O2SAT 97; BMI 32.7
--- NOTE | 2025-07-04 14:06 | MHC.PC.OV ---
Vital Signs 07/04/25 14:06 Height 5 ft 9 in Weight 221 lb 4 oz BMI 32.7 BP 146/92 H Blood Pressure Location Lt brachial Position Sitting Pulse 86 Pulse Source Pulse Oximeter Temp 97.5 F Temp Source Temporal Artery Scan Pulse Oximetry (%) 97 Oxygen Delivery Method Room Air Intake Visit Reasons: annual exam Allergies lisinopril (LISINOPRIL) Allergy (Unknown, Verified 07/04/25 14:09) cough Medication List - Last Reconciled 07/04/25 by Jamaica Kent MD amlodipine 10 mg PO DAILY atorvastatin 20 mg PO DAILY 90 days finasteride 5 mg PO DAILY 90 days losartan 50 mg PO DAILY multivitamin (One-A-Day Essential tablet) 1 tab PO DAILY omeprazole 40 mg (2 x 20 mg) PO DAILY sertraline 25 mg PO DAILY Tobacco use date assessed: 07/04/25 Dental Screening Dental Screen Date: 07/04/25 Did you have a dental visit in the last 12 months?: Yes Did you have a dental problem in the last 6 months where you did not have access to dental care?: No Was dental information given to patient?: Patient has dentist [facility] Medical History Prostate cancer PSA elevation Anxiety and depression Fatty liver GERD (gastroesophageal reflux disease) Obesity (BMI 30-39.9) Vitamin D deficiency Obstructive sleep apnea Hypercholesterolemia Hypertension Impaired fasting glucose Alcohol abuse Surgical History History of prostate biopsy History of esophagogastroduodenoscopy (EGD) H/O nasal septoplasty Family History Father Alcoholism Breast cancer Mother Hypertension Hypercholesteremia Brother Hypercholesteremia Gout Maternal Grandfather Throat cancer Maternal Grandmother Hypertension Maternal Uncle Throat cancer Colon cancer Social History (Updated 07/04/25 @ 14:25 by Jamaica Kent MD) Household Members Other:: - 1 son Housing: House Alcohol intake: former Comment: 2019 last drink, drinking again (06/2025) Patient Tobacco Use Status: Former Tobacco user Tobacco use type: Cigar Years Smoked: quit 2020 e-Cigarette/Vaping Use: Never Used Second Hand Smoke Exposure: No service: Yes Current occupational status: employed Current occupation: [employer] Cognitive needs: No Hearing needs: No Vision needs: Yes Questionnaire PHQ-9 Over the last 2 weeks, how often have you been bothered by any of the following problems? 1. Little interest or pleasure in doing things: not at all 2. Feeling down, depressed, or hopeless: not at all 3. Trouble falling or staying asleep, or sleeping too much: not at all 4. Feeling tired or having little energy: not at all 5. Poor appetite or overeating: not at all 6. Feeling bad about yourself - or that you are a failure or have let yourself or your family down: not at all 7. Trouble concentrating on things, such as reading the newspaper or watching television: not at all 8. Moving or speaking so slowly that other people could have noticed. Or the opposite - being so fidgety or restless that you have been moving around a lot more than usual: not at all 9. Thoughts that you would be better off or of hurting yourself in some way: not at all Total score: 0 Depression Screening Interpretation: Negative Depression Screening Done: Yes 05000 - PHQ-9 Billing: Yes Source: Developed by Drs. Jsas Arias, Nicole Holland, Leobardo Baca and colleagues, with an educational jody from [employer]. Thrive Questionnaire Date Thrive assessed: 06/27/25 I am a: Patient What is your living situation today?: I have a steady place to live Within the past 12 months, did the food you bought not last and you didn't have the money to get more?: Never true Within the past 12 months, did you worry whether your food would run out before you got money to buy more?: Never true Do you have trouble paying for medicines?: No Do you have trouble getting transportation to medical appointments?: No Do you have trouble paying your heating and electricity bill?: No Do you have trouble taking care of your child, family member or friend?: No Do you have trouble with day-to-day activities such as bathing, preparing meals, shopping, managing finances, etc.?: No Are you currently unemployed and looking for a job?: No Are you interested in more education?: I choose not to answer this question Please select the resources that you would like help with: None Currently or been in a relationship where the following occur: No concerns reported THRIVE Score: 0 AUDIT C Alcohol Use Questionnaire (AUDIT-C) 1. How often do you have a drink containing alcohol?: Never 3. How often do you have six or more drinks on one occasion?: Never Total Score: 0 DEYSI-7 AMB Questionnaire DEYSI-7 Date DEYSI - 7 assessed: 11/01/24 Feeling nervous, anxious, or on edge: 0 = Not at all Not being able to stop or control worryin = Not at all Worrying too much about different things: 0 = Not at all Trouble relaxin = Not at all Being so restless that it is hard to sit still: 0 = Not at all Becoming easily annoyed or irritable: 0 = Not at all Feeling afraid as if something awful might happen: 0 = Not at all Total DEYSI-7 score (0-4 normal; 5-9 mild; 10-14 moderate; 15-21 severe): 0 Source: Developed by Drs. Jass Arias, Nicole Holland, Leobardo Baca and colleagues, with an educational jody from [employer]. Review of Systems Const Denies poor appetite and Denies weakness Eyes Denies no additional complaints ENT Reports Normal hearing present, Denies dizziness, Denies nasal congestion, Denies tinnitus and Denies sore throat Card Denies chest pain, Denies syncope, Denies rapid heart rate and Denies dyspnea Resp Denies cough and Denies dyspnea GI Denies change in stool character, Reports constipation, Denies diarrhea, Denies nausea and Denies vomiting Denies dysuria and Denies urinary frequency Neuro Reports Normal hearing present, Denies confusion, Denies dizziness, Denies syncope and Denies weakness Psych Denies confusion Physical exam (Primary Care) Vital Signs: Last Vital Signs Temp 97.5 F 07/04/25 14:06 Pulse 86 07/04/25 14:06 BP 146/92 H 07/04/25 14:06 Pulse Ox 97 07/04/25 14:06 Oxygen Delivery Method Room Air 07/04/25 14:06 BMI result Body Mass Index 32.7 Tobacco/Smoking Status: Tobacco use Status Tobacco use date assessed 07/04/25 07/04/25 14:11 Patient Tobacco Use Status Former Tobacco user 07/04/25 14:25 Tobacco use type Cigar 07/04/25 14:25 e-Cigarette/Vaping Use Never Used 07/04/25 14:25 PHQ-9: PHQ-9 Score PHQ-9: Total score 0 07/04/25 14:18 Depression Screening Interpretation: Negative Thrive Assessment: Date of Thrive Assessment Date Thrive assessed 06/27/25 07/04/25 14:11 Currently or been in a relationship where the following occur: No concerns reported Const General: No confusion Orientation/consciousness: No confusion HENMT Head: Yes normocephalic Ears: external ears normal and TM's normal bilaterally Face and sinus: Yes normal facial exam Mouth: moist mucous membranes Throat: Yes tonsils normal Eyes Conjunctivae: conjunctivae normal Pupils: Equal, round and reactive pupils present and Pupil accommodation reflex normal Direct Ophthalmoscopy: normal light reflex Neck Neck: No lymphadenopathy Thyroid: Thyroid normal Chest Chest palpation & inspection: normal inspection of the chest Resp Effort & Inspection: normal respiratory effort and no audible wheezes Auscultation: clear to auscultation bilaterally, no crackles, no wheezes and lung sounds not diminished Cardio Rate: regular rate Rhythm: regular rhythm Peripheral pulses: radial pulses present and dorsalis pedis present GI Palpation (GI): no masses Auscultation: normal bowel sounds and normoactive bowel sounds Rectal Exam - Male: Yes deferred Skin General skin exam: no rashes or lesions noted Rashes: no rashes Neuro General: No confusion Cranial nerves: Yes Equal, round and reactive pupils present and Yes Normal hearing present Cognition (Neuro): normal cognition Gait exam (Neuro): Normal gait present Motor exam (neuro): 5/5 motor strength present throughout Deep tendon reflexes (DTR's): Right brachioradialis reflex intensity grade: 2+, Left brachioradialis reflex intensity grade: 2+, Right patellar reflex intensity grade: 2+ and Left patellar reflex intensity grade: 2+ Extrem General: No edema Coding Level of Care Code Est Pt Prev Care 40-64y(63716) Diagnoses Annual physical exam Z00.00 Obstructive sleep apnea G47.33 Prostatic adenocarcinoma C61 Colon cancer screening Z12.11 Erosive esophagitis K22.10 Essential hypertension I10 Hypertension type: essential hypertension Hypercholesterolemia E78.00 Generalized anxiety disorder F41.1 Additional Codes PHQ-9 - 53507 - PHQ-9 Billing: Yes ([id number]) Assessment & Plan Assessment & Plan (1) Annual physical exam: Code(s): Z00.00 - Encounter for general adult medical examination without abnormal findings Category: Medical Plan: Patient is advised to eat healthy, keep well hydrated, keep active and have adequate sleep. (2) Obstructive sleep apnea: Comment: Has CPAP not using QD (01/2021) Sleep study done 12/29/2024 showing obstructive sleep apnea moderately severe moderately severe with AHI of 17 advised patient to have the sleep study in lab Code(s): G47.33 - Obstructive sleep apnea (adult) (pediatric) Category: Medical Plan: Discussed about the results of the sleep study was advised to have sleep lab test (3) Prostatic adenocarcinoma: Comment: 03/07 - Grade Group 1 Prolaris Active Surveillance May 2025 Code(s): C61 - Malignant neoplasm of prostate Category: Medical Plan: Patient continues to follow-up with urology had recent biopsy with some bleeding/rectal pain (4) Colon cancer screening: Comment: colonoscopy Code(s): Z12.11 - Encounter for screening for malignant neoplasm of colon Category: Medical Plan: Reminded about colon cancer screening (5) Erosive esophagitis: Comment: Very pleasant, seemingly depressed 53-year-old male with abnormal findings on barium study- follows up after recent EGD-with biopsies He does chronic cough, no dysphagia or odynophagia September 2023, February 2024 Code(s): K22.10 - Ulcer of esophagus without bleeding Category: Medical Plan: Avoid the foods that causes that usually spicy foods, tomato products, juices, coffee, soda and foods that your sensitive to. After eating do not lie down, allow 3-4 hours before in lie down. And keep the head of bed above 30 degrees to avoid the acid from going up. (6) Hypertension: Code(s): I10 - Essential (primary) hypertension Category: Medical Qualifiers: Hypertension type: essential hypertension Qualified Code(s): I10 - Essential (primary) hypertension Plan: Continue with blood pressure medication. Decrease salt intake and exercise on amlodipine 10 mg once a day losartan 50 mg once a day (7) Hypercholesterolemia: Code(s): E78.00 - Pure hypercholesterolemia, unspecified Category: Medical Plan: Continue with cholesterol medication atorvastatin 20 mg once a day (8) Generalized anxiety disorder: Comment: decline counselling 10/2021 Code(s): F41.1 - Generalized anxiety disorder Category: Medical Plan: Continue with present medication Plan History of Present Illness The patient is a 54-year-old male presenting for a physical examination and management of multiple chronic conditions. He has a history of obesity, alcohol use disorder, hypertension, hypercholesterolemia, obstructive sleep apnea, generalized anxiety disorder, prostate cancer, esophagitis, and elevated liver function tests. The patient reports a recent 7-pound weight loss and has been experiencing rectal pain and bleeding for the past week, which began after a prostate biopsy. He follows up with urology and has been on finasteride for prostate management. The patient underwent a sleep study in December, which showed moderate to severe obstructive sleep apnea, and he was advised to have CPAP titration. He has elevated liver function tests, which have been noted in previous lab workups. The patient has a family history of cancer, including breast cancer in his father and throat cancer in his grandfather and uncle. He also reports a history of alcohol use disorder, with recent increased consumption due to stress. Health Maintenance - Colon cancer screening reminder - Advised to have CPAP titration for obstructive sleep apnea - Discussed shingles vaccination Social History - Employment: Reports stress related to work conditions and financial concerns. - Substance use: History of alcohol use disorder with recent increased consumption due to stress. - Family history: Father had breast cancer, grandfather and uncle had throat cancer. Review of Systems - Gastrointestinal: Reports rectal pain and bleeding for the past week. - Respiratory: Denies dyspnea or cough. - Neurological: Denies headaches or dizziness. Physical Exam General: Cooperative, healthy appearing, comfortable, no acute distress and well developed Orientation: Patient oriented x3 Limitations: No limitations Head: Normal to inspection Ears: Hearing grossly normal bilaterally Nose: Normal external nose present Face and sinus: Normal facial exam Eyes: Appearance normal, both eyes and all related structures Neck: Normal visual inspection and Yes full ROM Respiratory: Normal respiratory effort and able to speak in complete sentences. Clear to auscultation bilaterally Cardiovascular: Regular rate and rhythm. Normal S1 and S2 GI: Normal to inspection. Soft to palpation and nontender Skin: No rashes or lesions noted Neuro: Patient oriented x3 Extremities: Normal to inspection, noted swelling possibly due to medication (amlodipine) Results - Labs: Elevated liver function tests, mildly elevated blood sugar, normal blood count, normal electrolytes, normal renal function, normal hemoglobin A1c, normal B12 and thyroid levels. - Tests: Sleep study showing moderate to severe obstructive sleep apnea. Plan Patient was informed and verbally consented to the use of an ambient scribe for clinic note documentation during this visit. 1. Obesity The patient is advised to continue monitoring weight and engage in lifestyle modifications to aid in weight management. 2. Alcohol Use Disorder The patient expressed a desire to cut back on alcohol consumption and was advised on the importance of reducing intake to manage blood pressure and overall health. 3. Hypertension The patient is currently on amlodipine and losartan for blood pressure management and was advised to monitor blood pressure at home. 4. Hypercholesterolemia The patient is on atorvastatin for cholesterol management and advised to continue current medication regimen. 5. Obstructive Sleep Apnea The patient was advised to undergo CPAP titration following a sleep study indicating moderate to severe obstructive sleep apnea. 6. Generalized Anxiety Disorder The patient is on sertraline for anxiety management and requested a refill due to low supply. 7. Prostate Cancer The patient is under urology care and on finasteride; recent biopsy was performed with follow-up planned. 8. Esophagitis The patient is advised to continue current management for esophagitis. 9. Rectal Pain And Bleeding The patient reported rectal pain and bleeding post-biopsy, and was advised to monitor symptoms and follow up with urology. 10. Elevated Liver Function Tests The patient has a history of elevated liver function tests, which were noted again in recent labs; advised to monitor and manage through lifestyle modifications. Discussion Notes During the visit, we discussed the patient's multiple chronic conditions, including hypertension, hypercholesterolemia, and obstructive sleep apnea. The importance of lifestyle modifications for weight management and reducing alcohol intake was emphasized. We also reviewed the need for CPAP titration and the management of prostate cancer with urology follow-up. Patient Instructions - Monitor blood pressure at home regularly and report any significant changes. - Continue current medications for hypertension, hypercholesterolemia, and anxiety. - Schedule CPAP titration for obstructive sleep apnea. - Follow up with urology for prostate cancer management. - Consider lifestyle changes to aid in weight management and reduce alcohol consumption. Medications: New lorazepam 0.5 mg PO DAILY PRN 10 tabs 0RF anxiety F41.1 - Generalized anxiety disorder Refilled sertraline 25 mg PO DAILY 90 tabs 1RF
--- OUTSIDE RECORDS SUMMARY | 2025-07-04 16:12 | XMS_ITS | Clinical Summary ---
Author Organization [facility] Address [address] [place] [address] Care Team Providers Care Sales Service Manager Name Role Phone Pcp, No Primary [...] 50+ (1 of 1 - PCV) 2020 RSV Vaccine 50 years and old er and Patients (1 - Risk 50-74 years 1-dose series) 2020 Zoster (Shingles) Vaccine (1 of 2) 2020 Influenza Vaccine 04/15/2025 COVID-19 Vaccine (1 - season) 2025 [facility] Care Teams Sales Service Manager Relationship Specialty Start Date End Date Pcp, No PCP - General General Medicine 09/15/19
--- OUTSIDE RECORDS SUMMARY | 2025-07-04 16:12 | XMS_ITS | Clinical Summary ---
Author Organization [facility] Address [address] [address] Phone Care Team Providers Care Blockmason Name Role Phone Jamaica Kent MD Primary Care Provider [phone] Allergies Active Allergy Reactions Criticality Noted Date [...] 9, 10/31/2017, 06/29/2016 COVID-19 VACCINE (1 - 2024-2 6 season) 2025 RSV VACCINE (1 - 1-dose 75+ series) 2045 SMOKING STATUS SCREENING (On ce After 26 [...] topic Medical Devices Not on file Insurance [employer] PPO C[employer] [place] [phone] Care Teams Blockmason Relationship Specialty Start Date End Date Jamaica Kent MD [address] [place] [id number] PCP - General Internal Medicine 09/01/19 Additional Source Comments The information contained in this document represents components of the legal health record. It is not the complete legal health record.[facility]
== END 2025-07-04 14:38 | disposition home or self-care (01) ==
LOC: HO.HMCH 13:17
PROVIDERS: PCP Internal Medicine; Visit Provider Internal Medicine
DX: Z00.00 Encounter for general adult medical examination without abnormal findings (principal); G47.33 Obstructive sleep apnea (adult) (pediatric); C61 Malignant neoplasm of prostate; Z12.11 Encounter for screening for malignant neoplasm of colon; K22.10 Ulcer of esophagus without bleeding; I10 Essential (primary) hypertension; E78.00 Pure hypercholesterolemia, unspecified; F41.1 Generalized anxiety disorder

== ENCOUNTER → 2025-07-04 13:16 | Outpatient (BNVA) | payer BC, SELFPAY | PROVIDERS: PCP Internal Medicine; Visit Provider Internal Medicine | DX: Z00.00 Encounter for general adult medical examination without abnormal findings (principal); G47.33 Obstructive sleep apnea (adult) (pediatric); C61 Malignant neoplasm of prostate; K22.10 Ulcer of esophagus without bleeding; I10 Essential (primary) hypertension; E78.00 Pure hypercholesterolemia, unspecified; F41.1 Generalized anxiety disorder; E66.9 Obesity, unspecified; Z99.89 Dependence on other enabling machines and devices; R79.89 Other specified abnormal findings of blood chemistry | CPT/HCPCS: 96127 ==

== ENCOUNTER 2025-08-05 11:33 | Outpatient (AMB) | payer BC, SELFPAY ==
--- NOTE | 2025-08-05 11:37 | MHC.PC.OV ---
Vital Signs 08/05/25 11:39 Height 5 ft 9 in Weight 223 lb 8 oz BMI 33.0 BP 120/86 Blood Pressure Location Lt brachial Position Sitting Pulse 61 Pulse Source Pulse Oximeter Temp 96.9 F Temp Source Temporal Artery Scan Pulse Oximetry (%) 97 Oxygen Delivery Method Room Air Intake Visit Reasons: [facility] 08/04 Intake Note: Patient is here for hospital discharge follow up. Patient was discharged from [facility] on 08/03/25 . Grooming Assistant Required: No Lead Programmer: Not Required per policy Accompanied by: Self / Same As Patient Allergies lisinopril (LISINOPRIL) Allergy (Unknown, Verified 08/05/25 11:39) cough Tobacco use date assessed: 08/05/25 Dental Screening Dental Screen Date: 07/04/25 HPI HPI Comments History of Present Illness Details 54-year-old male patient presents to the clinic today for hospital discharge follow-up (HDF). He was admitted to [facility] for alcohol rehabilitation and was discharged on 08/04. Patient reports he is feeling ?okay? since discharge. Denies alcohol use since entering rehab. Denies withdrawal symptoms such as tremors, hallucinations, diaphoresis, nausea/vomiting, or anxiety beyond baseline. He states he has a follow-up visit scheduled with Psychiatry tomorrow. No new medical complaints at this time. Denies chest pain, shortness of breath, dizziness, abdominal pain, or suicidal/homicidal ideation. No Discharge Notes available for review. PFSH Medical History Prostate cancer PSA elevation Anxiety and depression Fatty liver GERD (gastroesophageal reflux disease) Obesity (BMI 30-39.9) Vitamin D deficiency Obstructive sleep apnea Hypercholesterolemia Hypertension Impaired fasting glucose Alcohol abuse Surgical History History of prostate biopsy History of esophagogastroduodenoscopy (EGD) H/O nasal septoplasty Family History Father Alcoholism Breast cancer Mother Hypertension Hypercholesteremia Brother Hypercholesteremia Gout Maternal Grandfather Throat cancer Maternal Grandmother Hypertension Maternal Uncle Throat cancer Colon cancer Social History Household Members Other:: - 1 son Housing: House Alcohol intake: former Comment: 2019 last drink, drinking again (06/2025) Patient Tobacco Use Status: Former Tobacco user Tobacco use type: Cigar Years Smoked: quit 2020 e-Cigarette/Vaping Use: Never Used Second Hand Smoke Exposure: Yes service: Yes Current occupational status: employed Current occupation: [employer] Cognitive needs: No Hearing needs: No Vision needs: Yes Questionnaire Thrive Questionnaire Date Thrive assessed: 06/27/25 I am a: Patient What is your living situation today?: I have a steady place to live Within the past 12 months, did the food you bought not last and you didn't have the money to get more?: Never true Within the past 12 months, did you worry whether your food would run out before you got money to buy more?: Never true Do you have trouble paying for medicines?: No Do you have trouble getting transportation to medical appointments?: No Do you have trouble paying your heating and electricity bill?: No Do you have trouble taking care of your child, family member or friend?: No Do you have trouble with day-to-day activities such as bathing, preparing meals, shopping, managing finances, etc.?: No Are you currently unemployed and looking for a job?: No Are you interested in more education?: I choose not to answer this question Please select the resources that you would like help with: None Currently or been in a relationship where the following occur: No concerns reported THRIVE Score: 0 DEYSI-7 AMB Questionnaire DEYSI-7 Date DEYSI - 7 assessed: 11/01/24 Source: Developed by Drs. Jass Arias, Nicole Holland, Leobardo Baca and colleagues, with an educational jody from [employer]. Review of Systems Const All systems reviewed & are unremarkable except as noted in HPI and below Physical exam (Primary Care) Vital Signs: Last Vital Signs Temp 96.9 F 08/05/25 11:39 Pulse 61 08/05/25 11:39 BP 120/86 08/05/25 11:39 Pulse Ox 97 08/05/25 11:39 Oxygen Delivery Method Room Air 08/05/25 11:39 BMI result Body Mass Index 33.0 Tobacco/Smoking Status: Tobacco use Status Tobacco use date assessed 08/05/25 08/05/25 11:45 Patient Tobacco Use Status Former Tobacco user 08/05/25 11:45 Tobacco use type Cigar 08/05/25 11:45 e-Cigarette/Vaping Use Never Used 08/05/25 11:45 Thrive Assessment: Date of Thrive Assessment Date Thrive assessed 06/27/25 08/05/25 11:45 Currently or been in a relationship where the following occur: No concerns reported Const General: no acute distress Nutritional Appearance: obese Orientation/consciousness: patient oriented x3 Resp Effort & Inspection: normal respiratory effort Cardio Rate: regular rate Neuro General: patient oriented x3, gait normal and moves all extremities Psych Speech and movement: Normal speech and movement present Coding Level of Care Code Est Pt Level 4 (13839) Diagnoses Anxiety and depression F41.9; F32.9 Time Spent (min) 20 Assessment & Plan Assessment & Plan (1) Anxiety and depression: Comment: Suicidal thoughts February 2020. [facility] 1 days a week Code(s): F41.9 - Anxiety disorder, unspecified; F32.9 - Major depressive disorder, single episode, unspecified Category: Medical Plan: Alcohol Use Disorder ? recently discharged from inpatient rehab - Stable post-discharge with no acute withdrawal symptoms. Continue post-rehab recovery plan as instructed by inpatient program. Reinforce abstinence; provide supportive counseling. Keep scheduled Psychiatry appointment tomorrow for continued management and relapse prevention. Reviewed warning signs that would require ED evaluation: severe withdrawal symptoms, chest pain, hallucinations, suicidal ideation. Medications: Refilled lorazepam 0.5 mg PO DAILY PRN 10 tabs 0RF anxiety F41.1 - Generalized anxiety disorder
[2025-08-05 11:39] VITALS: BP 120/86; PULSE 61; TEMP 36.1; O2SAT 97; BMI 33.0
--- OUTSIDE RECORDS SUMMARY | 2025-08-05 12:23 | XMS_ITS | Data Portability ---
Author Organization [place] [facility] Address [address] [place] [address] Care Team Providers Care Skin Fitter Name Role Phone CORBYALEAH Primary Care Provider Assessment Encounter Date Assessment Date Assessment LastModified by Organization Details LastModified Time 06/10/2019 06/10/2019 48 year old, male, being seen today for c/o flu like symptoms since friday. pt reports by friday evening he was feeling very ill. He started having vomiting on friday and through the night. He has not been able to keep much down as far as food and drinking, although did have a glass of roger philip earlier and tolerated ok. pt is also reporting body aches, nigh sweats, and fatigue. pt states he does feel better today compared to yesterday but still does not feel well. Pt has PMH of HTN and HLD. He reports otherwise being generally healthy. Exam: Pt standing at door awaiting our arrival. pt in NAD. A&O X3. Pt is conversative with staff. Pt ambulating around home. Pt physical exam benign. Vitals BP 130/96, HR 112 down to 104 before we left, T 98.4F, RR 16, sao2 94% RA. Lungs CTAB, heart Regular rhythm with mild tachycardia at 104. ENT WNL, moist oral mucous membranes, Abd soft, round, non distended, normal BT throughout, no guarding, no masses, no rebound tenderness, negative McBurney sign. No bruising or obvious deformities. Skin is pink and warm but mildly clammy. exam otherwise normal. DDx: considered but not limited to gasroenteritis, influenza, N/V, dehydration, viral illness working dx: N/V, flu like illness plan: -Please continue routine medications as prescribed -Please continue to sip liquids to maintain hydration, you may sip warm teas or something like gatorade - Eat food as tolerated, I recommend you start with a BRAT diet (bananas, toast, rice, and apple sauce) -Take tylenol or motrin over the counter for fever and pain, follow instructions on bottle - Rest but do not lay around all day as this can make symptoms worse -Consider taking warm showers to relax muscles and help clean off sweat, this does help you feel better - Try and avoid contact with others while you are feeling ill, you may return to normal activity as you see fit as long as you do not have a fever for at least 24 hours prior without use of anti fever medications. -Monitor for changes or worsening symptoms, if this occurs seek immediate reevaluation from healthcare provider MDM: Pt symptoms are reported as improved today. He needed work note stating he is ok to go back to work. he still had vomiting and Nausea during night but nothing since 0600 today. Denies abd pain, physical exam benign except for mild tachycardia. Pt afebrile without use of oral analgesics. Pt likely has flu like illness however I did encourage pt seek reevaluation if not improving in the next 1-2 days. Pt does not have rebound tenderness, abdominal rigidity, and had negative McBurney sign therefor I do not suspect appendicitis. Pt exam is otherwise normal. Rapid flu was negative at this time. josé Not available 06/10/2019 16:12:43 Plan of Treatment Reminders Order Date Submit Date Provider Last Modified By Organization Details Last Modified Time Details Appointments None recorded. Lab rapid flu (A+B) 2018 019 [email or web address] [facility], [address] [place] [address], [id number], 9 14:56:01 Referral None recorded. Procedures None recorded. Surgeries None recorded. Imaging None recorded. Medication Orders Zofran ODT 4 mg disintegra ting tablet 2018 019 [email or web address] [id number], [address] [place], [address], 9 14:56:01 Zofran 4 mg tablet 09/26/ 2019 09/26/2 019 INTERFACE [id number], [address] [facility], [place], [address], 9 14:57:02 Patient TargetsNo targets recorded. Patient Instructions Encounter Date Encounter Id Patient Instructions Last Modified By Organization Details Last Modified Time 06/10/2019 [id number] -Please continue routine medications as prescribed -Please continue to sip liquids to maintain hydration, you may sip warm teas or something like gatorade - Eat food as tolerated, I recommend you start with a BRAT diet (bananas, toast, rice, and apple sauce) -Take tylenol or motrin over the counter for fever and pain, follow instructions on bottle - Rest but do not lay around all day as this can make symptoms worse -Consider taking warm showers to relax muscles and help clean off sweat, this does help you feel better - Try and avoid contact with others while you are feeling ill, you may return to normal activity as you see fit as long as you do not have a fever for at least 24 hours prior without use of anti fever medications. -Monitor for changes or worsening symptoms, if this occurs seek immediate reevaluation from healthcare provider josé Not available 06/10/2019 14:57:22 Reason for Referral None Reported. Results Created Date Observation Date Name Description Value Unit Range Abnormal Flag Note LastModifiedBy Organization Detail LastModifiedTime 06/10/20 19 06/10/2019 rapid flu (A+B) Flu A negati ve Not Available [facility] [address] [place], [address], 06/10/2019 14:47:48 06/10/20 19 06/10/2019 rapid flu (A+B) Flu B negati ve Not Available [facility] [address] [place], [address], 06/10/2019 14:47:48 Result Notes None recorded. Medical Equipment None Reported. Allergies Allergen ID Allergen Name Allergen Category Reaction Reaction Severity Criticality Documentation Date Start Date Code Code System Note Provider Name and Address Organization Details Recorded Time 36767 lisinopri l medicatio n Not available Not available Not available 06/10/2019 13700 RxNorm EDER VOSS NP [address] [place], [address], [place] [facility] 9 14:42:06 Medications Name Sig Start Date Stop Date Status Note LastModified by Organization Details LastModified Time Zofran 4 mg tablet Take 1 tablet 6 times a day by oral route. 2018 active Not Available Not Available Not Avai lable Zofran ODT 4 mg disintegrati ng tablet one ODT administere d on scene. Time administere d:1453 2018 active Not Available Not Available Not Avai lable atorvastatin active Not Available Not Available Not Available hydrochlorot hiazide active Not Available Not Available Not Available amlodipine active Not Available Not Av ailable Not Available losartan active Not Available Not Avai lable Not Available Vitals Date Recorded Heart rate Provider Name an d Address Organization Details Last Updated DateTime 06/10/2019 104 /min EDER VOSS NP [address], [place], [address], [place] [facility] 06/10/2019 16:13:01 Date Recorded Oxygen saturation Heart rate Body temperature Respiratory rate Systolic And Diastolic Provider Name and Address Organization Details Last Updated DateTime 9 97 % 112 /min 98.4 [degF] 16 /min 130/96 mm[Hg] Not Available [facility] 9 14:50:23 Social History Question Answer Notes LastModified by Organizat ion Details LastModified Time Tobacco Smoking Status Current Some Day Smoker EDER VOSS NP [address], [place], [address], [place] [facility] 06/10/2019 14:43:30 What Was The Date Of Your Most Recent Tobacco Screening? 06/10/2019 Information not available 06/11/2019 Sex: Unknown Functional Status None recorded. Mental Status None recorded. Family History Nothing Reported. Medical History Condition Response Diabetes N Coronary Artery Disease N Cancer N Stroke N COPD N Depression N Asthma N High Cholesterol Y Pulmonary Embolism N Hypertension Y Kidney Disease N Past Encounters Encounter ID Performer Location Encounter Start Date Encounter Closed Date Diagnosis/Indication Diagnosis SNOMED-CT Code Diagnosis ICD10 Code Diagnosis IMO Codes Diagnosis Note [id number] EDER VOSS NP [facility] [address] [place] [address] 06/10/2019 14:33:58 06/10/2019 16:20:35 Influenza-like symptoms 153894783 R68.89 Nausea and vomiting 1693 1999 R11.2 Health Concerns Section Related Observation LastModified by Organization Detai ls LastModified Time None Recorded Concern Status LastModified by Organization Details LastModified Time None Recorded Advance Directives Directive None Recorded Payers Insurance Date Sequence Insurance Name Policy Number Policy Comer Covered Member ID Comer Member ID Guarantor Name 06/10/2019 1 [employer] [id number] Grace Perez [id number] 2 David Perez 06/10/2019 1 [employer] [id number] Grace Perez [id number] 2 David Perez 06/10/2019 1 *SELF PAY* David Perez [id number] David Perez Notes Date Note Type Note Provider Name and Address Organization Details Recorded Time 06/10/2019 text/html 48 year old, male, being seen today for c/o flu like symptoms since friday. pt reports by friday evening he was feeling very ill. He started having vomiting on friday and through the night. He has not been able to keep much down as far as food and drinking, although did have a glass of roger philip earlier and tolerated ok. pt is also reporting body aches, nigh sweats, and fatigue. pt states he does feel better today compared to yesterday but still does not feel well. Pt has PMH of HTN and HLD. He reports otherwise being generally healthy. EDER VOSS NP [facility] [address], [place], [address], [place] [facility] 06/10/2019 16:13:08
--- OUTSIDE RECORDS SUMMARY | 2025-08-05 12:23 | XMS_ITS | Clinical Summary ---
Author Organization [facility] Address [address] [address] Phone Care Team Providers Care Chip Mucker Name Role Phone Jamaica Kent MD Primary Care Provider [phone] Allergies Active Allergy Reactions Criticality Noted Date [...] topic Medical Devices Not on file Insurance [employer] P[employer] PPO [employer] [place] [address] Care Teams Chip Mucker Relationship Specialty Start Date End Date Jamaica Kent MD [address] [place] [id number] PCP - General Internal Medicine 09/01/19 Additional Source Comments The information contained in this document represents components of the legal health record. It is not the complete legal health record.[facility]
--- OUTSIDE RECORDS SUMMARY | 2025-08-05 12:23 | XMS_ITS | Clinical Summary ---
Author Organization [facility] Address [address] [place] [address] Care Team Providers Care Vacuum Pan Tender Name Role Phone Pcp, No Primary Care [...] COVID-19 Vaccine (1 - season) 2025 Insurance [facility] Care Teams Vacuum Pan Tender Relationship Specialty Start Date End Date Pcp, No PCP - General General Medicine 09/15/19
== END 2025-08-05 12:03 | disposition home or self-care (01) ==
LOC: HO.HMCH 11:33
PROVIDERS: PCP Internal Medicine; Visit Provider Nurse Practitioner Family
DX: F41.9 Anxiety disorder, unspecified (principal); F32.9 Major depressive disorder, single episode, unspecified